=== PATIENT | female | born 1930 | race Caucasian/White ===

== ENCOUNTER → 2016-05-20 | Day surgery (SDC) | payer OTHER ==
[2016-05-08 08:07] VITALS: Ht 170.2 cm; Wt 90.5 kg
[~2016-05-20] VITALS: Ht 170.2 cm; Wt 90.5 kg
[~2016-05-20] MED LIST: 500ML BSS 0.3ML EPI 1:1000PF IRRIG ONE; ACET-1311 PO; ACETAMINOPHEN 325 MG TAB PO PRN; AMVISC PLUS 0.8ML SYRINGE INT OCU ONE; ARTIOIN OP; ASPCH81X PO; ATROPINE SULFATE 0.1 MG/ML 5ML SYR IV PRN; BISA10SU3 PR; BRIMONIDINE TART 0.2% OP SOLN PER DROP CHARGE ONE; BROM0.07 OPR; BSS FLUSH ONE; CHOL2000 PO; CHOL20007 PO; CLC100X PO; CYCL0.052 OPB; CZR25 PO; ENDOCOAT 0.85ML SYRINGE INT OCU ONE; EpHEDrine SULFATE INJ 50 MG/ML AMP IV PRN; EpINEphrine INJ 1MG/ML AMP 1 MG/ML AMP ONE; FERR325T PO; FURO40TA3 PO; LACTATED RINGER'S 1000ML 500 ML IV SCH; LIDOCAINE 4% OP SOLN DROP CHARGE ONE; LIDOCAINE 4% OP SOLN DROP CHARGE OPR SCH; LIDOCAINE HCL 1% MPF 2 ML VIAL ONE; LOPE2TAB84 PO; METO100T7 PO; MIDAZOLAM HCL 1 MG/ML 2ML VIAL ONE; MOML PO; MOXIFLOXACIN OPH SOLN PER DROP CHARGE ONE; MULT-188 PO; MULT-190 PO; OXYM0.0525 NAE; POLY335025 PO; POTA10TA PO; POVIDONE-IODINE OP SOLN 30 ML BTL ONE; PRED1SUS3 OPR; PRLSR20 PO; PROPARACAINE 0.5% OP SOLN PER DROP CHARGE OPR SCH; PYRI100T4 PO; SODIENE PR; TOBRAMYCIN/DEXAMETHASONE OPH OINT PER APPLN CHARGE ONE; VNTHFA/IN INH; ZNTT/150 PO
[2016-05-20] MEDS: PHENYLEPHRINE HCL 2.5% OP SOLN PER DROP CHARGE OPR SCH ×2 (11:15→11:20)
[2016-05-20] MEDS: TROPICAMIDE 1% OP SOLN PER DROP CHARGE OPR SCH ×2 (11:16→11:21)
[2016-05-20] MEDS: CYCLOPENTOLATE HCL 1% OP SOLN PER DROP CHARGE OPR SCH ×2 (11:17→11:22)
--- NOTE | 2016-05-20 11:17 | History & Physical Bridge - [place] ---
H&P Re-Evaluation Bridge Note: I have examined the patient, reviewed the History & Physical and in the interval since the performance of the History & Physical I have noted the following changes of clinical significance: No changes noted
[2016-05-20] MEDS: KETOROLAC 0.5% OP SOLN PER DROP CHARGE OPR SCH ×2 (11:18→11:23)
[2016-05-20] MEDS: MOXIFLOXACIN OPH SOLN PER DROP CHARGE OPR SCH ×2 (11:19→11:29)
--- NOTE | 2016-05-20 13:07 | Discharge Instructions-SurgCtr ---
Discharge Instructions Visit Reason for Visit: Cataract Right Eye Discharge Discharge Diagnosis / Problem: cataract right eye Discharge Goals Goal(s): Improve function Activity Recommendations Activity Limitations: per Instructions/Follow-up section Lifting Limitations: no more than 5 pounds Anesthesia . Post Anesthesia Instructions: If you have had General Anesthesia or IV Sedation: * Do not drive today. * Resume driving when surgeon permits. * Do not make important decisions or sign legal documents today. * Call surgeon for: 1. Temperature elevations greater than 101 degrees F. 2. Uncontrollable pain. 3. Excessive bleeding. 4. Persistent nausea and vomiting. 5. Medication intolerance (nausea, vomiting or rash). * For nausea and vomiting use only clear liquids such as: tea, soda, bouillon until nausea subsides, then gradually increase diet as tolerated. * If you have any concerns or questions, call your surgeon's office. If physician is unavailable and it is an emergency, call 911 or go to the nearest emergency room. . Instructions / Follow-Up Instructions / Follow-Up ACTIVITY RECOMMENDATIONS: * Light activities * You may walk outside, read, watch television. * Mild irritation and blurred vision are common for the first few days, redness around the white part of the eye is common. MEDICATIONS: Resume previous medications unless instructed otherwise by your surgeon. Eye drops (today and tomorrow): Ofloxacin - one drop in operative eye every 2 hours while awake Prednisolone 1% - one drop in operative eye every 2 hours while awake Prolensa - one drop operative eye 1 times daily SPECIAL CARE INSTRUCTIONS: * If any problems or concerns, please call Dr. Faustin's office at . * Keep plastic shield taped over eye to sleep at night. * Keep plastic shield taped over eye except to administer eye drops. * Keep plastic shield on until office visit the following day. FOLLOW UP VISIT: Follow-up with Dr. Faustin in the [place] office as scheduled. If not already scheduled, please call the office at . Diet Recommendations Home Diet: resume previous diet Procedures Procedures Performed: Right Cataract Phacoemulsification With Intraocular Lens Implant Pending Studies Studies pending at discharge: no Medical Emergencies . Who to Call and When: Medical Emergencies: If at any time you feel your situation is an emergency, please call 911 immediately. . Non-Emergent Contact Non-Emergency issues call your: Inside Sales Manager . . "Provider Documentation" section prepared by Steve Faustin.
[2016-05-20 13:08] VITALS: TEMP 36.5
--- NOTE | 2016-05-20 13:08 | [facility] Post Operative Brief Note ---
Immediate Operative Summary Operative Date May 20, 2016. Pre-Operative Diagnosis Cataract right eye Post-Operative Diagnosis same Procedure(s) Performed Right Cataract Phacoemulsification With Intraocular Lens Implant Surgeon Dr. Faustin Adult Education Teacher Surgeon(s) none Estimated Blood Loss 0 Findings cataract right eye Specimens none Complication(s) None Disposition Recovery Room / PACU
[2016-05-20 13:28] VITALS: BP 163/64; PULSE 70; O2SAT 96
--- NOTE | 2016-05-20 13:30 | Anesthesia Progress Nt - [facility] ---
Anesthesia Post Op Note Date & Time May 20, 2016 at 13:29 Vital Signs Pain Intensity: 0 Vital Signs Past 12 Hours Date Time Temp Pulse Resp B/P Pulse Ox O2 Delivery O2 Flow Rate FiO2 05/20/16 13:08 36.5 75 18 137/67 94 Room Air 05/20/16 11:06 36.4 73 18 188/77 96 Room Air Notes Mental Status: alert / awake / arousable, participated in evaluation Pt Amnestic to Procedure: Yes Nausea / Vomiting: adequately controlled Pain: adequately controlled Airway Patency, RR, SpO2: stable & adequate BP & HR: stable & adequate Hydration State: stable & adequate Anesthetic Complications: no major complications apparent
--- NOTE | 2016-05-20 13:53 | OPERATIVE REPORT ---
DATE OF OPERATION: 05/20/2016 PREOPERATIVE DIAGNOSIS: Cataract, right eye. POSTOPERATIVE DIAGNOSIS: Cataract, right eye. PROCEDURE: Phacoemulsification cataract extraction with intraocular lens placement, right eye. SURGEON: Dr. Faustin. COMPLICATIONS: None. ESTIMATED BLOOD LOSS: None. ANESTHESIA: Topical with sedation. OPERATION AND FINDINGS: After informed consent was obtained in the holding area the patient was wheeled back to the Operating Room where cardiac monitoring leads and oxygen by nasal cannula was administered by Anesthesia. Gentle IV sedation was given, and the patient's right eye was prepped and draped in usual sterile fashion. A wire lid speculum was placed into the right eye and the operating microscope was swung into position. Using 0.12 forceps and a Supersharp blade a paracentesis port was made 3 o'clock hours away from the 9 o'clock position of patient's right eye. 1% non-preserved Lidocaine was then injected into the anterior chamber for anesthesia. A 2.2 mm keratotome blade was then used to make a shelved clear corneal incision at the 9 o'clock position of her right eye. Amvisc was injected into the anterior chamber and a cystotome and Utrata forceps were used to perform a curvilinear capsulorrhexis. BSS on a hydrodissection cannula was used to hydrodissect the lens nucleus away from the capsular bag. The phacoemulsification handpiece was then used in a stop and chop fashion to remove the lens nucleus. The irrigation and aspiration handpiece was then used to remove the residual cortical material. Amvisc was injected into the capsular bag and anterior chamber and a Bausch \T\ Lomb MX60 19.0 Diopter intraocular lens was injected into the capsular bag. Irrigation and aspiration handpiece was used to remove the residual viscoelastic material. The wounds were hydrated and noted to be watertight. The wire lid speculum was removed from the eye. Vigamox, Brimonidine, and TobraDex ointment were placed on the eye and it was shielded. It should be noted that EndoCoat was used throughout the case to protect the cornea endothelium. DISPOSITION: The patient tolerated the procedure well and was wheeled to the post anesthesia care unit in stable condition. I attest to the content of the Intraoperative Record and any orders documented therein. Any exceptions are noted below. I attest to the content of the Intraoperative Record and any orders documented therein. Any exceptions are noted below. MTDD
== END | disposition home or self-care (01) ==
LOC: X.SURG 10:52
PROVIDERS: ATTEND Ophthalmology
DX: H26.9 Unspecified cataract (principal); Z88.0 Allergy status to penicillin; Z88.2 Allergy status to sulfonamides; Z95.0 Presence of cardiac pacemaker; Z68.31 Body mass index [BMI] 31.0-31.9, adult; Z96.653 Presence of artificial knee joint, bilateral; I10 Essential (primary) hypertension; I50.9 Heart failure, unspecified

== ENCOUNTER → 2016-07-08 | Day surgery (SDC) | payer OTHER ==
[2016-06-18 11:16] VITALS: Ht 144.8 cm; Wt 89.5 kg
[~2016-07-08] VITALS: Ht 144.8 cm; Wt 89.5 kg
[~2016-07-08] MED LIST changes: -CHOL20007 PO; +FERR1TAB62 PO; -FERR325T PO; +LIDOCAINE 4% OP SOLN DROP CHARGE OPL SCH; -LIDOCAINE 4% OP SOLN DROP CHARGE OPR SCH; +LIDOCAINE HCL 2% 2 ML VIAL (20MG/ML) ONE; -MIDAZOLAM HCL 1 MG/ML 2ML VIAL ONE; -MULT-190 PO; +PROPARACAINE 0.5% OP SOLN PER DROP CHARGE OPL SCH; -PROPARACAINE 0.5% OP SOLN PER DROP CHARGE OPR SCH; +PROPOFOL IV EMULSION 10 MG/ML 20 ML VIAL IV ONE; -ZNTT/150 PO
[2016-07-08] MEDS: PHENYLEPHRINE HCL 2.5% OP SOLN PER DROP CHARGE OPL SCH ×2 (11:53→11:58)
[2016-07-08] MEDS: TROPICAMIDE 1% OP SOLN PER DROP CHARGE OPL SCH ×2 (11:54→11:59)
[2016-07-08] MEDS: CYCLOPENTOLATE HCL 1% OP SOLN PER DROP CHARGE OPL SCH ×2 (11:55→12:00)
[2016-07-08] MEDS: KETOROLAC 0.5% OP SOLN PER DROP CHARGE OPL SCH ×2 (11:56→12:02)
[2016-07-08] MEDS: MOXIFLOXACIN OPH SOLN PER DROP CHARGE OPL SCH ×2 (11:57→12:07)
--- NOTE | 2016-07-08 13:24 | Discharge Instructions-SurgCtr ---
Discharge Instructions Date of Service Jul 08, 2016. Visit Reason for Visit: Cataract Left Eye Discharge Discharge Diagnosis / Problem: cataract left eye Discharge Goals Goal(s): Improve function Activity Recommendations Activity Limitations: per Instructions/Follow-up section Lifting Limitations: no more than 5 pounds Anesthesia . Post Anesthesia Instructions: If you have had General Anesthesia or IV Sedation: * Do not drive today. * Resume driving when surgeon permits. * Do not make important decisions or sign legal documents today. * Call surgeon for: 1. Temperature elevations greater than 101 degrees F. 2. Uncontrollable pain. 3. Excessive bleeding. 4. Persistent nausea and vomiting. 5. Medication intolerance (nausea, vomiting or rash). * For nausea and vomiting use only clear liquids such as: tea, soda, bouillon until nausea subsides, then gradually increase diet as tolerated. * If you have any concerns or questions, call your surgeon's office. If physician is unavailable and it is an emergency, call 911 or go to the nearest emergency room. . Instructions / Follow-Up Instructions / Follow-Up ACTIVITY RECOMMENDATIONS: * Light activities * You may walk outside, read, watch television. * Mild irritation and blurred vision are common for the first few days, redness around the white part of the eye is common. MEDICATIONS: Resume previous medications unless instructed otherwise by your surgeon. Eye drops (today and tomorrow): Ofloxacin - one drop in operative eye every 2 hours while awake Prednisolone 1% - one drop in operative eye every 2 hours while awake Prolensa - one drop operative eye 1 times daily SPECIAL CARE INSTRUCTIONS: * If any problems or concerns, please call Dr. Faustin's office at . * Keep plastic shield taped over eye to sleep at night. * Keep plastic shield taped over eye except to administer eye drops. * Keep plastic shield on until office visit the following day. FOLLOW UP VISIT: Follow-up with Dr. Faustin in the [place] office as scheduled. If not already scheduled, please call the office at . Diet Recommendations Home Diet: resume previous diet Procedures Procedures Performed: Left Cataract Phacoemulsification With Intraocular Lens Implant Pending Studies Studies pending at discharge: no Medical Emergencies . Who to Call and When: Medical Emergencies: If at any time you feel your situation is an emergency, please call 911 immediately. . Non-Emergent Contact Non-Emergency issues call your: Drip Molder . . "Provider Documentation" section prepared by Steve Faustin.
--- NOTE | 2016-07-08 13:24 | [facility] Post Operative Brief Note ---
Immediate Operative Summary Operative Date Jul 08, 2016. Pre-Operative Diagnosis Cataract Left Eye Post-Operative Diagnosis Same Procedure(s) Performed Left Cataract Phacoemulsification With Intraocular Lens Implant Surgeon Dr. Faustin Security Checker Surgeon(s) None Estimated Blood Loss 0 mL Findings cataract left eye Specimens None Complication(s) None Disposition Recovery Room / PACU
[2016-07-08 13:38] VITALS: TEMP 36.7
--- NOTE | 2016-07-08 13:43 | Anesthesia Progress Nt - [facility] ---
Anesthesia Post Op Note Date & Time Jul 08, 2016 at 13:43 Vital Signs Pain Intensity: 0 Vital Signs Past 12 Hours Date Time Temp Pulse Resp B/P Pulse Ox O2 Delivery O2 Flow Rate FiO2 07/08/16 13:38 36.7 72 16 146/65 99 Room Air 07/08/16 11:46 36.2 77 22 164/81 95 Room Air Notes Mental Status: alert / awake / arousable, participated in evaluation Pt Amnestic to Procedure: Yes Nausea / Vomiting: adequately controlled Pain: adequately controlled Airway Patency, RR, SpO2: stable & adequate BP & HR: stable & adequate Hydration State: stable & adequate Anesthetic Complications: no major complications apparent
--- NOTE | 2016-07-08 13:43 | OPERATIVE REPORT ---
DATE OF OPERATION: 07/08/2016 PREOPERATIVE DIAGNOSIS: Cataract, left eye. POSTOPERATIVE DIAGNOSIS: Cataract, left eye. PROCEDURE: Phacoemulsification cataract extraction with intraocular lens placement, left eye. SURGEON: Dr. Faustin. COMPLICATIONS: None. ESTIMATED BLOOD LOSS: None. ANESTHESIA: Topical with sedation. OPERATION AND FINDINGS: After informed consent was obtained in the holding area the patient was wheeled back to the Operating Room where cardiac monitoring leads and oxygen by nasal cannula was administered by Anesthesia. Gentle IV sedation was given, and the patient's left eye was prepped and draped in usual sterile fashion. A wire lid speculum was placed into the left eye and the operating microscope was swung into position. Using 0.12 forceps and a Supersharp blade a paracentesis port was made 3 o'clock hours away from the 3 o'clock position of patient's left eye. 1% non-preserved Lidocaine was then injected into the anterior chamber for anesthesia. A 2.2 mm keratotome blade was then used to make a shelved clear corneal incision at the 3 o'clock position of her left eye. Amvisc was injected into the anterior chamber and a cystotome and Utrata forceps were used to perform a curvilinear capsulorrhexis. BSS on a hydrodissection cannula was used to hydrodissect the lens nucleus away from the capsular bag. The phacoemulsification handpiece was then used in a stop and chop fashion to remove the lens nucleus. The irrigation and aspiration handpiece was then used to remove the residual cortical material. Amvisc was injected into the capsular bag and anterior chamber and a Bausch \T\ Lomb MX60 20.5 Diopter intraocular lens was injected into the capsular bag. Irrigation and aspiration handpiece was used to remove the residual viscoelastic material. The wounds were hydrated and noted to be watertight. The wire lid speculum was removed from the eye. Vigamox, Brimonidine, and TobraDex ointment were placed on the eye and it was shielded. It should be noted that EndoCoat was used throughout the case to protect the cornea endothelium. DISPOSITION: The patient tolerated the procedure well and was wheeled to the post anesthesia care unit in stable condition. I attest to the content of the Intraoperative Record and any orders documented therein. Any exceptions are noted below. I attest to the content of the Intraoperative Record and any orders documented therein. Any exceptions are noted below. MTDD
[2016-07-08 13:54] VITALS: BP 144/50; PULSE 66; O2SAT 97
== END | disposition home or self-care (01) ==
LOC: X.SURG 10:59
PROVIDERS: ATTEND Ophthalmology
DX: H25.12 Age-related nuclear cataract, left eye (principal); I10 Essential (primary) hypertension; H35.30 Unspecified macular degeneration; E78.00 Pure hypercholesterolemia, unspecified

== ENCOUNTER → 2016-08-01 | Outpatient (CLI) | payer OTHER ==
[~2016-08-01] MED LIST changes: -500ML BSS 0.3ML EPI 1:1000PF IRRIG ONE; -ACETAMINOPHEN 325 MG TAB PO PRN; -AMVISC PLUS 0.8ML SYRINGE INT OCU ONE; -ATROPINE SULFATE 0.1 MG/ML 5ML SYR IV PRN; -BRIMONIDINE TART 0.2% OP SOLN PER DROP CHARGE ONE; -BSS FLUSH ONE; -ENDOCOAT 0.85ML SYRINGE INT OCU ONE; -EpHEDrine SULFATE INJ 50 MG/ML AMP IV PRN; -EpINEphrine INJ 1MG/ML AMP 1 MG/ML AMP ONE; -LACTATED RINGER'S 1000ML 500 ML IV SCH; -LIDOCAINE 4% OP SOLN DROP CHARGE ONE; -LIDOCAINE 4% OP SOLN DROP CHARGE OPL SCH; -LIDOCAINE HCL 1% MPF 2 ML VIAL ONE; -LIDOCAINE HCL 2% 2 ML VIAL (20MG/ML) ONE; -MOXIFLOXACIN OPH SOLN PER DROP CHARGE ONE; -POVIDONE-IODINE OP SOLN 30 ML BTL ONE; -PROPARACAINE 0.5% OP SOLN PER DROP CHARGE OPL SCH; -PROPOFOL IV EMULSION 10 MG/ML 20 ML VIAL IV ONE; -TOBRAMYCIN/DEXAMETHASONE OPH OINT PER APPLN CHARGE ONE
[2016-08-01 08:25] LABS: BASO % 0.5 %; BASO ABS # 0.03 K/uL (0-0.2); COMPLETE YES; EOS % 8.5 %; HEMATOCRIT 35.6 % (37-47); IG% 0.2 %; LYMPH % 29.3 %; MEAN CELL VOLUME 91.5 fL (80-100); MEAN CORPUSCULAR HEMOGLOBIN 29.6 pg (25-34); MEAN CORPUSCULAR HGB CONC 32.3 g/dl (32-36); MEAN PLATELET VOLUME 10.3 fL (7.4-10.4); MONO % 11.2 %; NEUT % 50.3 %; PLATELET COUNT 279 K/uL (130-400); RED BLOOD COUNT 3.89 M/uL (4.2-5.4); WHITE BLOOD COUNT 6.15 K/uL (4.8-10.8)
[2016-08-01 08:34] LABS: ALT/SGPT 34 U/L (12-78); BLOOD UREA NITROGEN 43 mg/dl (7-18); BUN/CREATININE RATIO 26.9 (10-20); CARBON DIOXIDE 29 mmol/L (21-32); CHLORIDE 104 mmol/L (98-107); GLUCOSE 81 mg/dl (70-99); POTASSIUM 4.1 mmol/L (3.5-5.1); SODIUM 141 mmol/L (136-145)
[2016-08-01 08:44] LABS: ALB/GLOB RATIO 1.1 (0.9-2); ALKALINE PHOSPHATASE 88 U/L (45-117); AST/SGOT 32 U/L (15-37)
[2016-08-01 08:50] LABS: CALCIUM 9.6 mg/dl (8.5-10.1)
== END ==
LOC: C.LABCC 07:56
PROVIDERS: ATTEND Internal Medicine
DX: I10 Essential (primary) hypertension (principal)

== ENCOUNTER → 2016-09-06 | Outpatient (CLI) | payer OTHER ==
[2016-09-06 08:57] LABS: BLOOD UREA NITROGEN 51 mg/dl (7-18); BUN/CREATININE RATIO 39.4 (10-20); CARBON DIOXIDE 28 mmol/L (21-32); CHLORIDE 106 mmol/L (98-107); GLUCOSE 79 mg/dl (70-99); POTASSIUM 3.9 mmol/L (3.5-5.1); SODIUM 143 mmol/L (136-145)
[2016-09-06 09:04] LABS: CALCIUM 9.3 mg/dl (8.5-10.1)
== END ==
LOC: C.LABCC 08:06
PROVIDERS: ATTEND Internal Medicine
DX: R79.9 Abnormal finding of blood chemistry, unspecified (principal)

== ENCOUNTER → 2016-09-23 | Outpatient (CLI) | payer OTHER ==
[2016-09-23 14:05] LABS: BLOOD UREA NITROGEN 42 mg/dl (7-18); BUN/CREATININE RATIO 29.9 (10-20); CALCIUM 8.8 mg/dl (8.5-10.1); CARBON DIOXIDE 32 mmol/L (21-32); CHLORIDE 105 mmol/L (98-107); GLUCOSE 110 mg/dl (70-99); POTASSIUM 3.4 mmol/L (3.5-5.1); SODIUM 143 mmol/L (136-145)
== END ==
LOC: C.LABCC 12:17
PROVIDERS: ATTEND Internal Medicine
DX: N18.9 Chronic kidney disease, unspecified (principal)

== ENCOUNTER → 2016-09-26 | Outpatient (CLI) | payer OTHER ==
[2016-09-26 08:54] LABS: BLOOD UREA NITROGEN 39 mg/dl (7-18); BUN/CREATININE RATIO 24.1 (10-20); CARBON DIOXIDE 29 mmol/L (21-32); CHLORIDE 101 mmol/L (98-107); GLUCOSE 99 mg/dl (70-99); POTASSIUM 3.8 mmol/L (3.5-5.1); SODIUM 140 mmol/L (136-145)
[2016-09-26 09:07] LABS: CALCIUM 9.1 mg/dl (8.5-10.1)
== END ==
LOC: C.LABCC 07:39
PROVIDERS: ATTEND Internal Medicine
DX: R79.89 Other specified abnormal findings of blood chemistry (principal)

== ENCOUNTER → 2017-02-03 | Outpatient (CLI) | payer OTHER ==
[2017-02-03 08:36] LABS: BLOOD UREA NITROGEN 39 mg/dl (7-18); BUN/CREATININE RATIO 23.5 (10-20); CALCIUM 9.6 mg/dl (8.5-10.1); CARBON DIOXIDE 26 mmol/L (21-32); CHLORIDE 106 mmol/L (98-107); CREATININE 1.65 mg/dl (0.60-1.20); GLUCOSE 104 mg/dl (70-99); POTASSIUM 3.9 mmol/L (3.5-5.1); SODIUM 141 mmol/L (136-145)
== END | disposition home or self-care (01) ==
LOC: C.LABCC 08:02
PROVIDERS: ATTEND Internal Medicine
DX: R60.9 Edema, unspecified (principal)

== ENCOUNTER → 2017-07-22 | Outpatient (CLI) | payer OTHER ==
[2017-07-22 09:34] LABS: BLOOD UREA NITROGEN 27 mg/dl (7-18); CALCIUM 9.6 mg/dl (8.5-10.1); CARBON DIOXIDE 28 mmol/L (21-32); CREATININE 1.26 mg/dl (0.60-1.20); GLUCOSE 95 mg/dl (70-99); POTASSIUM 3.5 mmol/L (3.5-5.1); SODIUM 139 mmol/L (136-145)
[2017-07-22 09:35] LABS: PTT PATIENT 30.6 SECONDS (21.0-31.0)
== END | disposition home or self-care (01) ==
LOC: C.LABCC 08:48
PROVIDERS: ATTEND Internal Medicine
DX: Z01.812 Encounter for preprocedural laboratory examination (principal)

== ENCOUNTER → 2017-07-30 | Outpatient (CLI) | payer OTHER | LOC: C.LABCC 08:23 | PROVIDERS: ATTEND Internal Medicine | DX: R30.0 Dysuria (principal) ==

== ENCOUNTER 2017-08-05 11:13 | Day surgery (SDC) | payer OTHER ==
[~2017-08-05] VITALS: Ht 144.8 cm; Wt 86.4 kg
[~2017-08-05 11:13] MED LIST changes: +CLINDAMYCIN 600 MG/54 ML D5W IV SCH; +LACTATED RINGER'S 1000ML IV SCH
[2017-08-05 11:34] VITALS: Ht 144.8 cm; Wt 86.4 kg
[2017-08-05] MEDS ORDERED: LIDOCAINE HCL 1% 20 ML VIAL ONE ×2 (12:26→12:32)
[2017-08-05] MEDS ORDERED: BUPIVACAINE 0.5 % 5 MG/1 ML MPF 30ML VIAL ONE (12:26)
[2017-08-05] MEDS ORDERED: BACITRACIN 50000 UNIT VIAL ONE ×2 (12:26→12:32)
[2017-08-05] MEDS ORDERED: BACITRACIN OINT 0.9 GM PKT ONE (12:32)
[2017-08-05] MEDS ORDERED: MIDAZOLAM HCL 5 MG/ML 1 ML VIAL ONE (12:36)
[2017-08-05] MEDS ORDERED: FENTANYL CITRATE INJ 50 MCG/1 ML 2 ML VIAL ONE (12:36)
--- NOTE | 2017-08-05 13:09 | History & Physical Bridge Note ---
H&P Re-Evaluation Bridge Note: I have examined the patient, reviewed the History & Physical and in the interval since the performance of the History & Physical I have noted the following changes of clinical significance: No changes noted. I reviewed the indications, procedure, risks and alternatives of device replacement and possible lead revision with her and she understands and agrees to proceed. Consent obtained. Conscious sedation was also reviewed, consent obtained.
[2017-08-05] MEDS ORDERED: DOXY100C76 PO (13:10)
[2017-08-05] MEDS ORDERED: SULF800T23 PO (13:10)
--- NOTE | 2017-08-05 13:14 | Pre Sedation Assessment ---
Pre Sedation Assessment General Date of Sedation: August 05, 2017. Review Cardiovascular: regular rate, rhythm, no edema, no gallop, no JVD Lungs: chest non-tender, lungs clear, normal breath sounds, no respiratory distress, no accessory muscle use Pre-Sedation Airway Assessment Smoking Status: Never Smoker Thyro-mental Distance: < or =3 Finger Breadths Oral Cavity: Dentures Mallampati Classification: Class III ASA Classification: Class II NPO Status Date of Last Intake of Fluids: Aug 04, 2017 Date of Last Intake of Solids: Aug 04, 2017 Procedure Planning Contraindications for Sedation: None Current Medications Reviewed: Yes Notes The planned sedation has been discussed with the patient. Informed Consent was obtained. I have identified the patient, determined the appropriateness of sedation and have assessed the patient immediately prior to the procedure. All medicine(s) and interventions are by my order.
[2017-08-05 14:20] VITALS: BP 136/70; PULSE 83; TEMP 36.4; O2SAT 95
--- NOTE | 2017-08-05 14:22 | [facility] Operative Report ---
Operative Report Operative Date August 05, 2017. Pre-Operative Diagnosis Pacemaker LOULOU Post-Operative Diagnosis Same Procedure(s) Performed Dual-chamber pacemaker replacement Surgeon Dr. Zendejas Copy Cutter Surgeon(s) None Estimated Blood Loss 30 cc Findings Good chronic lead measurements Specimens Old pacemaker, return to [employer] Anesthesia Local with sedation Complication(s) None Disposition [facility] Description of Procedure After obtaining informed consent for the procedure, the patient was brought to the laboratory being NPO after midnight. After identification in the laboratory the patient was prepped and draped in the standard sterile manner for a left- sided device replacement. The left prepectoral region was anesthetized with 1% lidocaine local anesthetic and once adequate anesthesia was obtained a 5 cm incision was made through the old implant scar and carried down to the pacemaker generator. The generator was dissected free of tissue and explanted. A bacitracin-soaked sponge(50,000 units in 50 cc normal saline solution) was placed in the pocket. The pacemaker was removed from the leads and connected to an external pacing system. Pacing and sensing characteristics were evaluated in both the atrial and ventricular leads as noted on the implant data sheet. A new pacemaker was attached to the leads and found to be functioning normally. The bacitracin- soaked sponge was removed from the pocket, the pacemaker was placed in the pocket with the leads coiled beneath it. The incision was closed with a running double subcutaneous closure of 3-0 Vicryl absorbable suture followed by a running subcuticular skin closure of 4-0 Vicryl absorbable suture. The patient tolerated the procedure well, there were no complications and the patient was transferred to the same-day surgery unit for observation and subsequent discharge. I attest to the content of the Intraoperative Record and any orders documented therein. Any exceptions are noted below.
--- NOTE | 2017-08-05 14:23 | Post Sedation Assessment ---
Post Sedation Assessment General Date of Sedation August 05, 2017. Post Procedure Recovery Score Activity: (2) Moves 4 extremities * Respiration: (2) Deep breath/cough Circulation: (2) +/-20% PreAnes Value Consciousness: (1) Arouseable (by name) Oxygen Saturation: (1) O2 needed for >90% Post Anesthesia Score: 8 Discharge Sedation Level of Care: Fast Track Phase II Post Sedation Plan On clinical assessment, the patient appears to have tolerated the sedation without complications. Patient is recovering as anticipated. Patient will continue to be monitored by nursing and may be discharged when sedation discharge criteria are met per below protocol. Upon Completions of procedure and additional 15 minutes continue every 5 minute vital signs and the P.A.R. score; then discharge to a Phase I or Fast Track to Phase II per the following guidelines: * Discharge Patient to appropriate Phase II area if PAR is 8 or greater or return to pre- procedure baseline. The post - procedure orders will be as directed. * If PAR score is less than 8 or not return to pre-procedure baseline then patient will follow Phase I monitoring till PAR is reached for Phase II. The Phase I may be done in procedure room or may call to secure a Phase I area. * If naloxone or flumazenil are used for reversal, hold in Phase I for an additional 60 -120 minutes before discharge to Phase II. Please call the Sedation Physician to re-evaluate and complete post-note for discharge to Phase II area. Do NOT discharge from procedure sedation or Phase 1 until post- sedation evaluation note is complete by procedure /sedation MD Sedation Discharge Instructions to be given to the patient at discharge to home.
[2017-08-05 14:36] VITALS: BP 136/70; PULSE 83; TEMP 36.4
[2017-08-05 14:50] VITALS: BP 137/78; PULSE 77; O2SAT 97
[2017-08-05 15:20] VITALS: BP 108/53; PULSE 74; O2SAT 97
--- NOTE | 2017-08-05 15:43 | Discharge Instructions ---
Discharge Instructions Date of Service August 05, 2017. Admission Reason for Admission: Elective Replacement Indicator Discharge Discharge Diagnosis / Problem: Pacemaker at replacement time Discharge Goals Goal(s): Improve disease control Activity Recommendations Activity Limitations: resume your previous activity . Instructions / Follow-Up Instructions / Follow-Up ACTIVITY RECOMMENDATIONS: * Do not raise affected arm over head for 2 weeks. SPECIAL CARE INSTRUCTIONS: * If bleeding occurs, apply direct pressure to area for 5 minutes. * Call your doctor if you have severe pain, fever, drainage or bleeding at site. * Keep dressing on and dry, change to another dry dressing in 24 hours. Remove the new dressing after 48 hours. * Keep any scheduled doctor's appointment. * Implant Card - hand held device with website information given. SKIN IRRITATION: * You may experience some redness and/or swelling in the area where radiation was administered. If any skin irritation occurs, please contact your family physician. FOLLOW UP VISIT: Keep any scheduled doctor appointments. Current Hospital Diet Patient's current hospital diet: Discharge Diet Recommended Diet: AHA Diet (Heart Healthy) Pending Studies Studies pending at discharge: no Medical Emergencies . Who to Call and When: Medical Emergencies: If at any time you feel your situation is an emergency, please call 911 immediately. . Non-Emergent Contact Non-Emergency issues call your: Primary Care Provider . . "Provider Documentation" section prepared by Román Zendejas. .
[2017-08-05] MEDS ORDERED: KETOROLAC TROMETHAMINE 10 MG TAB PO PRN (15:45)
[2017-08-05] MEDS ORDERED: ACETAMINOPHEN 325 MG TAB PO PRN (15:45)
== END 2017-08-05 16:30 | disposition home or self-care (01) ==
LOC: C.ACU 11:13
PROVIDERS: ATTEND Internal Medicine Cardiovascular Disease
DX: I49.5 Sick sinus syndrome (principal); I48.0 Paroxysmal atrial fibrillation; I35.0 Nonrheumatic aortic (valve) stenosis; Z95.0 Presence of cardiac pacemaker; K21.9 Gastro-esophageal reflux disease without esophagitis; K21.0 Gastro-esophageal reflux disease with esophagitis; E78.5 Hyperlipidemia, unspecified; I10 Essential (primary) hypertension; M81.0 Age-related osteoporosis without current pathological fracture; Z82.49 Family history of ischemic heart disease and other diseases of the circulatory system; Z83.6 Family history of other diseases of the respiratory system; Z79.82 Long term (current) use of aspirin; Z88.0 Allergy status to penicillin; Z91.048 Other nonmedicinal substance allergy status

== ENCOUNTER 2017-10-19 07:20 | Inpatient (IN) | payer OTHER ==
[2017-10-19] VITALS (7 sets, daily range): BP systolic 90–116; BP diastolic 56–81; PULSE 111–133; TEMP 36.3–36.8; O2SAT 96–99; Ht 149.9 cm; Wt 93.8 kg
[~2017-10-19] VITALS: Ht 149.9 cm; Wt 93.8 kg
[~2017-10-19 07:20] MED LIST changes: -CLINDAMYCIN 600 MG/54 ML D5W IV SCH; -CZR25 PO; +DOXY100C76 PO; -LACTATED RINGER'S 1000ML IV SCH; +SULF800T23 PO
[2017-10-19] MEDS ORDERED: CEFTRIAXONE SOD INJ 1 GM ADDVIAL IV STA (07:30)
[2017-10-19] MEDS ORDERED: VANCOMYCIN 1GM ED/ASU OMNICELL IV STA (07:30)
[2017-10-19] MEDS ORDERED: LEVAQUIN 750MG / 150ML D5W IV STA (07:30)
[2017-10-19 07:44] LABS: HEMATOCRIT 30.3 % (37-47); IG# 0.06 K/uL (0.00-0.02); LYMPH % 4.7 %; LYMPH ABS # 0.72 K/uL (1.2-3.4); MEAN CELL VOLUME 99.7 fL (80-100); MEAN CORPUSCULAR HEMOGLOBIN 32.9 pg (25-34); MEAN PLATELET VOLUME 9.2 fL (7.4-10.4); MONO % 8.1 %; MONO ABS # 1.24 K/uL (0.11-0.59); NEUT % 86.8 %; NEUT ABS # 13.37 K/uL (1.4-6.5); PLATELET COUNT 117 K/uL (130-400); RED CELL DISTRIBUTION WIDTH CV 17.1 % (11.5-14.5); RED CELL DISTRIBUTION WIDTH SD 61.5 fL (36.4-46.3); WHITE BLOOD COUNT 15.39 K/uL (4.8-10.8)
--- NOTE | 2017-10-19 07:51 | EMERGENCY ROOM VISIT NOTE ---
History Report prepared by Annette: Uriel Mcintyre Under the Supervision of: Dr. Mac Ramirez M.D. First contact with patient: 07:23 Stated Complaint: ILLNESS History of Present Illness The patient is a 86 year old female who presents to the Emergency Room with complaints of worsening pain in the region of her cellulitis on her right leg and a fever. The nurse states that last night, the patient was measured to have a fever of over 101. She states that the patient had nausea this morning, but the patient reports no current nausea. The patient notes localized pain in the region of her cellulitis. She states that her pain from cellulitis has recently been worsening. The patient denies abdominal pain. Source of History: patient, nursing staff Onset: last night fever Position: leg (right, cellulitis) Symptom Intensity: 101 fever Timing: worsening Associated Symptoms: No abdominal pain Review of Systems See HPI for pertinent positives & negatives. A total of 10 systems reviewed and were otherwise negative. Past Medical & Surgical Medical Problems: (1) Aortic stenosis (2) Atrial dysrhythmia (3) Atrial fibrillation with RVR (4) Cellulitis (5) Hypertension (6) LE edema (7) Lower extremity pain, left (8) Osteoporosis (9) Polyarthritis (10) Presence of IVC filter (11) Status post bilateral knee replacements Surgical Problems: (1) S/P carpal tunnel release (2) S/P cholecystectomy (3) S/P hemorrhoidectomy (4) S/P tonsillectomy Family History No pertinent family history Social History Smoking Status: Never Smoker Drug Use: none Marital Status: single Housing Status: group home Occupation Status: retired Current/Historical Medications Scheduled Albuterol Sulf (Proventil 0.083% 2.5MG/3ML), 2.5 MG INH QID Aspirin (Aspirin Chewable), 81 MG PO QAM Cholecalciferol (Vitamin D), 1.5 TAB PO DAILY Cyclosporine (Ophth) (Restasis), 1 DROP OPB BID Docusate Sodium (Colace), 100 MG PO BID Doxycycline Hyclate (Doxycycline Hyclate), 50 MG PO BID Ferrous Sulfate (Ferrous Sulfate), 325 MG PO BID Furosemide (Lasix), 60 MG PO BID Lactobacillus (Probiotic), 1 CAP PO BID Metoprolol Succinate (Toprol Xl), 100 MG PO DAILY Multiple Vitamins W/ Minerals (Prosight), 1 TAB PO BID Niacinamide (Niacinamide), 500 MG PO TID Omeprazole (Prilosec), 20 MG PO QAM Potassium Chloride (K-Tabs), 20 MEQ PO QAM Prednisone (Prednisone), 5 MG PO QAM Pyridoxine (Vitamin B6), 100 MG PO QAM Rivaroxaban (Xarelto), 15 MG PO QAM Scheduled PRN Acetaminophen (Tylenol), 650 MG PO Q4H PRN for PRN Bisacodyl (Dulcolax), 1 SUPP UT Q3D PRN for Constipation Guaifenesin (Ra Tussin), 10 ML PO Q6 PRN for Cough Magnesium Hydroxide (Milk Of Magnesia), 30 ML PO DAILY PRN for Constipation Sodium Phosphate/Biphosphate (Fleet Enema), 1 EA UT Q4DAYS PRN for Constipation Triamcinolone Acet (Aristocort 0.1%), 1 APPLN TOP Q12 PRN for BULLOUS PEMPHLAGOID LESIONS Allergies Coded Allergies: Penicillins (Verified Allergy, Mild, HIVES, 10/19/17) Adhesives (Verified Allergy, Unknown, LOCAL SKIN IRRITATION, 10/19/17) Terazosin (Verified Allergy, Unknown, PT UNSURE, 10/19/17) Physical Exam Vital Signs Date Time Temp Pulse Resp B/P (MAP) Pulse Ox O2 Delivery O2 Flow Rate FiO2 10/19/17 08:53 96 Room Air 10/19/17 08:30 114 22 115/64 96 Room Air 10/19/17 07:50 124 21 120/64 96 Room Air 10/19/17 07:42 96 Room Air 10/19/17 07:31 129 10/19/17 07:30 37.4 105 16 120/64 96 Room Air Physical Exam GENERAL: Awake, alert, well-appearing, in no acute distress HENT: Normocephalic, atraumatic. Oropharynx unremarkable. EYES: Normal conjunctiva. Sclera non-icteric. NECK: Supple. No nuchal rigidity. FROM. No JVD. RESPIRATORY: Clear to auscultation. CARDIAC: Grade 2/6 Systolic Murmur. Extremities warm and well perfused. Pulses equal. ABDOMEN: Soft, non-distended. No tenderness to palpation. No rebound or guarding. No masses. RECTAL: Deferred. MUSCULOSKELETAL: Chest examination reveals no tenderness. The back is symmetrical on inspection without obvious abnormality. There is no CVA tenderness to palpation. No joint edema. LOWER EXTREMITIES: Cellulitis weeping in the right lower extremity that extends to the knee. NEURO: Normal sensorium. No sensory or motor deficits noted. SKIN: No rash or jaundice noted. Covered in bruises on all extremities. Medical Decision & Procedures ER Provider Diagnostic Interpretation: Radiology results as stated below per my review and radiologist interpretation: CHEST ONE VIEW PORTABLE CLINICAL HISTORY: Sepsis dyspnea COMPARISON STUDY: 10/25/2013 FINDINGS: Moderate stable cardia megaly. Permanent bipolar cardiac pacemaker. Lungs are clear. Diaphragms are smooth. IMPRESSION: Moderate cardiomegaly. Otherwise negative chest. The above report was generated using voice recognition software. It may contain grammatical, syntax or spelling errors. Electronically signed by: Mandeep Alarcon M.D. 10/19/2017 7:54 AM Laboratory Results 10/19/17 07:00 Red Blood Count 3.04, Mean Corpuscular Volume 99.7, Mean Corpuscular Hemoglobin 32.9, Mean Corpuscular Hemoglobin Concent 33.0, Mean Platelet Volume 9.2, Neutrophils (%) (Auto) 86.8, Lymphocytes (%) (Auto) 4.7, Monocytes (%) (Auto) 8.1, Eosinophils (%) (Auto) 0.0, Basophils (%) (Auto) 0.0, Neutrophils # (Auto) 13.37, Lymphocytes # (Auto) 0.72, Monocytes # (Auto) 1.24, Eosinophils # (Auto) 0.00, Basophils # (Auto) 0.00 10/19/17 07:00 Test 10/19/17 07:00 10/19/17 07:32 10/19/17 07:40 10/19/17 07:51 White Blood Count 15.39 K/uL (4.8-10.8) Red Blood Count 3.04 M/uL (4.2-5.4) Hemoglobin 10.0 g/dL (12.0-16.0) Hematocrit 30.3 % (37-47) Mean Corpuscular Volume 99.7 fL (80-100) Mean Corpuscular Hemoglobin 32.9 pg (25-34) Mean Corpuscular Hemoglobin Concent 33.0 g/dl (32-36) Platelet Count 117 K/uL (130-400) Mean Platelet Volume 9.2 fL (7.4-10.4) Neutrophils (%) (Auto) 86.8 % Lymphocytes (%) (Auto) 4.7 % Monocytes (%) (Auto) 8.1 % Eosinophils (%) (Auto) 0.0 % Basophils (%) (Auto) 0.0 % Neutrophils # (Auto) 13.37 K/uL (1.4-6.5) Lymphocytes # (Auto) 0.72 K/uL (1.2-3.4) Monocytes # (Auto) 1.24 K/uL (0.11-0.59) Eosinophils # (Auto) 0.00 K/uL (0-0.5) Basophils # (Auto) 0.00 K/uL (0-0.2) RDW Standard Deviation 61.5 fL (36.4-46.3) RDW Coefficient of Variation 17.1 % (11.5-14.5) Immature Granulocyte % (Auto) 0.4 % Immature Granulocyte # (Auto) 0.06 K/uL (0.00-0.02) Anion Gap 10.0 mmol/L (3-11) Est Creatinine Clear Calc Drug Dose 26.2 ml/min Estimated GFR () 36.6 Estimated GFR (Non- 31.5 BUN/Creatinine Ratio 24.8 (10-20) Calcium Level 9.1 mg/dl (8.5-10.1) Total Bilirubin 1.4 mg/dl (0.2-1) Aspartate Amino Transf (AST/SGOT) 23 U/L (15-37) Alanine Aminotransferase (ALT/SGPT) 17 U/L (12-78) Alkaline Phosphatase 53 U/L (45-117) Total Creatine Kinase 75 U/L (26-192) Creatine Kinase MB 1.1 ng/ml (0.5-3.6) Total Protein 6.3 gm/dl (6.4-8.2) Albumin 3.2 gm/dl (3.4-5.0) Globulin 3.1 gm/dl (2.5-4.0) Albumin/Globulin Ratio 1.0 (0.9-2) Creatine Kinase MB Ratio (0-3.0) Prothrombin Time 12.8 SECONDS (9.0-12.0) Prothromb Time International Ratio 1.2 (0.9-1.1) Activated Partial Thromboplast Time 33.8 SECONDS (21.0-31.0) Partial Thromboplastin Ratio 1.3 Bedside Lactic Acid Venous 1.68 mmol/L (0.90-1.70) Labs reviewed by ED physician. Medications Administered Medications (Trade) Dose Ordered Sig/Carrol Route Start Time Stop Time Status Last Admin Dose Admin Vancomycin HCl (Vancomycin 1gm Ed/Asu Omnicell) 1 gm ONE STAT IV 10/19/17 07:30 10/19/17 07:33 DC 10/19/17 10:27 1 GM Levofloxacin (Levaquin / D5W) 750 mg ONE STAT IV 10/19/17 07:30 10/19/17 07:33 DC 10/19/17 08:54 750 MG Ceftriaxone Sodium (Rocephin Inj) 1 gm NOW STAT IV 10/19/17 07:30 10/19/17 07:33 DC 10/19/17 08:15 1 GM Sodium Chloride 500 ml @ 999 mls/hr Q31M STAT IV 10/19/17 08:08 10/19/17 08:38 DC 10/19/17 08:13 999 MLS/HR Potassium Chloride (Klor-Con M10) 40 meq NOW STAT PO 10/19/17 08:09 10/19/17 08:11 DC 10/19/17 08:54 40 MEQ Sodium Chloride 500 ml @ 999 mls/hr Q31M STAT IV 10/19/17 08:18 10/19/17 08:48 DC 10/19/17 08:54 999 MLS/HR ECG Per My Interpretation Indication: other (cellulitis) Rate (beats per minute): 125 Rhythm: atrial fibrillation, other (RVR) Findings: RBBB, ST depression (throughout all leads) Comparison ECG Date: no prior available ED Course 0728: Past medical records reviewed. The patient was evaluated in room A11B. A complete history and physical examination was performed. 0818: I spoke with Dr. Rincon - [facility] Hospitalist. He will reevaluate the patient for admission. Medical Decision Differential diagnosis: Etiologies such as cellulitis, abscess, MRSA infection, DVT, necrotizing fasciitis, dermatitis, drug eruption, as well as others were entertained. This is an 86-year-old female who presents the emergency department complaining of bilateral leg swelling. Patient does have an elevation in her white blood cell count. She was started on Rocephin vancomycin as well as Levaquin here in the emergency department. She has several bruises on her body from her Eliquis. She denies any abdominal pain. Do suspect that the patient is suffering from cellulitis and did discuss the case with the hospitalist service who agreed to admit the patient. Patient was in agreement with the treatment plan. Medication Reconcilliation Current Medication List: was personally reviewed by me Blood Pressure Screening Patient's blood pressure: Normal blood pressure Blood pressure disposition: Did not require urgent referral Consults Time Called: 08 Consulting Physician: Dr. Rincon [facility] Hospitalist Returned Call: [address] Rincon [facility] Hospitalist. He will reevaluate the patient for admission. Impression Primary Impression: Cellulitis Additional Impression: Fever Scribe Attestation The scribe's documentation has been prepared under my direction and personally reviewed by me in its entirety. I confirm that the note above accurately reflects all work, treatment, procedures, and medical decision making performed by me. Departure Information Dispostion Being Evaluated By Hospitalist Referrals LangtryCarol (PCP) Problem Qualifiers Primary Impression: Cellulitis Site of cellulitis: unspecified site Qualified Codes: L03.90 - Cellulitis, unspecified Additional Impression: Fever Fever type: unspecified Qualified Codes: R50.9 - Fever, unspecified
--- NOTE | 2017-10-19 07:56 | DIAGNOSTIC IMAGING REPORT ---
CHEST ONE VIEW PORTABLE CLINICAL HISTORY: Sepsis dyspnea COMPARISON STUDY: 10/25/2013 FINDINGS: Moderate stable cardia megaly. Permanent bipolar cardiac pacemaker. Lungs are clear. Diaphragms are smooth. IMPRESSION: Moderate cardiomegaly. Otherwise negative chest. The above report was generated using voice recognition software. It may contain grammatical, syntax or spelling errors. Electronically signed by: Mandeep Alarcon M.D. 10/19/2017 7:54 AM Dictated Date/Time: 10/19/2017 7:53 AM
[2017-10-19 08:00] LABS: ALBUMIN 3.2 gm/dl (3.4-5.0); CALCIUM 9.1 mg/dl (8.5-10.1); CREATININE 1.47 mg/dl (0.60-1.20); POTASSIUM 3.4 mmol/L (3.5-5.1)
[2017-10-19 08:03] LABS: CKMB 1.1 ng/ml (0.5-3.6); TOTAL PROTEIN 6.3 gm/dl (6.4-8.2)
[2017-10-19] MEDS ORDERED: SODIUM CHLORIDE 0.9% 500ML 500 ML IV STA ×2 (08:08→08:18)
[2017-10-19 08:09] LABS: INR 1.2 (0.9-1.1); PTT PATIENT 33.8 SECONDS (21.0-31.0)
[2017-10-19] MEDS ORDERED: POTASSIUM CHLORIDE 10 MEQ TABCR PO STA (08:09)
[2017-10-19] MEDS ORDERED: TRMCR130WC TOP (08:36)
[2017-10-19] MEDS ORDERED: LACT1CAP6 PO (08:36)
[2017-10-19] MEDS ORDERED: MULT-19 PO (08:36)
[2017-10-19] MEDS ORDERED: FURO-85 PO (08:36)
[2017-10-19] MEDS ORDERED: NIAC100T18 PO (08:36)
[2017-10-19] MEDS ORDERED: CYCL0.052 OPB (08:36)
[2017-10-19] MEDS ORDERED: CHOL20009 PO (08:36)
[2017-10-19] MEDS ORDERED: PRED-301 PO (08:36)
[2017-10-19] MEDS ORDERED: DOCU-94 PO (08:36)
[2017-10-19] MEDS ORDERED: XRL15 PO (08:36)
[2017-10-19] MEDS ORDERED: DOXY50TA9 PO (08:36)
[2017-10-19] MEDS ORDERED: [UNRECOGNIZED DRUG - CODE] PO (08:36)
[2017-10-19] MEDS ORDERED: ALBINS/ INH (08:37)
[2017-10-19] MEDS ORDERED: ONDANSETRON INJ 2 MG/ML 2 ML VIAL IV PRN (09:00)
[2017-10-19] MEDS ORDERED: POLYETHYLENE (MIRALAX) 17 GM PACK PO PRN (09:00)
[2017-10-19] MEDS ORDERED: METOPROLOL SUCC 50MG EXT REL TAB ONE (09:35)
[2017-10-19] MEDS ORDERED: VANCOMYCIN 1GM ED/ASU OMNICELL ONE (10:18)
[2017-10-19] MEDS: METOPROLOL SUCC 50MG EXT REL TAB PO SCH (11:30)
[2017-10-19] MEDS: NSS + 20MEQ KCL 1000ML 1,000 ML IV SCH (12:37)
[2017-10-19] MEDS: DOCUSATE SODIUM 100 MG CAP PO SCH ×2 (12:38→19:45)
[2017-10-19] MEDS: ASPIRIN 81 MG ECTAB PO SCH (12:38)
[2017-10-19] MEDS: PYRIDOXINE HCL 50 MG TAB PO SCH (12:39)
[2017-10-19] MEDS: RIVAROXABAN TAB 15 MG TAB PO SCH (12:40)
[2017-10-19] MEDS ORDERED: VANCOMYCIN IV 1,000 MG in SODIUM CHLORIDE 0.9% 250ML 250 ML IV SCH (13:30)
[2017-10-19] MEDS ORDERED: VANCOMYCIN CONSULT ACTIVE PRN (13:30)
[2017-10-19] MEDS ORDERED: VANCOMYCIN IV 500 MG in SODIUM CHLORIDE 0.9% 250ML 250 ML IV STA (14:03)
--- NOTE | 2017-10-19 14:10 | Pharmacy Progress Note ---
Pharmacy Abx Dose Short Note Date of Service Oct 19, 2017. Assessment & Plan A/P Coverage being broadened to include MRSA. She received 1g of Vanco in the ED. Will supplement this dose with 500mg. I suspect that 1500mg (16mg/kg) total of vancomycin will achieve a peak of ~29mcg/mL. Given that her t1/2 is 27hrs and advanced age, I do not suspect she will need any further doses today. Further, her habitus is strongly indicative of vanco accumulation. Random lvl ordered for 10/20/17 w/ AM labs. Goal random lvl until c/s's result will be 15-20mcg/mL. Pharmacy will continue to follow and will adjust dose/frequency as necessary. Thank you.
--- NOTE | 2017-10-19 14:10 | History and Physical ---
History & Physical Date & Time of Service: Oct 19, 2017 at 13:20 Chief Complaint: Atrial Fibrillation W/Rvr, Cellulitis Primary Care Physician: Carol Garcia History of Present Illness Source: patient, family, hospital records 86 yo female who presents to the ED from [facility] due to right leg pain, swelling, redness. She has also been experiencing fever/chills, sweats, lethargy, poor appetite and weakness. Poor intake of fluids past two days. She has been compliant with her medications. She has some chronic lower extremity swelling, edema and has had cellulitis before but she does not believe this bad. The pain is rated 7 out of 10 at its worst. She describes an area of skin that has opened and is draining clear fluid. Changes in the skin started a few days ago and then systemic symptoms occurred yesterday. No injury or break in skin over right leg that she can recall. She denies chest pain, pressure, dyspnea. No nausea/vomiting, she had a BM this morning. No issues urinating. In the ED she was found to have WBC of 15k with 86% neutrophils, Hb 10.0, K low at 3.4 and Cr up from baseline at 1.47. Troponin was minimally elevated. CXR negative. EKG showed atrial fibrillation. She received NSS 500cc bolus x 2, Rocephin, Vancomycin and Levaquin. She took Potassium chloride 40mEq PO x 1. She was feeling better when I saw her Past Medical/Surgical History Medical Problems: (1) Anterior epistaxis (2) Aortic stenosis (3) Atrial dysrhythmia (4) Atrial fibrillation with RVR (5) cellulitis (6) Cellulitis (7) CVA (cerebral vascular accident) (8) Deep vein thrombosis (9) DVT prophylaxis (10) Hypertension (11) Hypokalemia (12) LE edema (13) Left leg cellulitis (14) Lower extremity pain, left (15) Lower extremity pain, left (16) Osteoporosis (17) Polyarthritis (18) Presence of IVC filter (19) Status post bilateral knee replacements (20) Syncope Surgical Problems: (1) S/P carpal tunnel release (2) S/P cholecystectomy (3) S/P hemorrhoidectomy (4) S/P tonsillectomy Family History Diabetes Colon cancer Social History Smoking Status: Never Smoker Drug Use: none Marital Status: single Housing status: lives alone Occupational Status: retired Immunizations History of Influenza Vaccine: No History of Tetanus Vaccine?: Yes History of Pneumococcal: Yes History of Hepatitis B Vaccine: Yes Allergies Coded Allergies: Penicillins (Verified Allergy, Mild, HIVES, 10/19/17) Adhesives (Verified Allergy, Unknown, LOCAL SKIN IRRITATION, 10/19/17) Terazosin (Verified Allergy, Unknown, PT UNSURE, 10/19/17) Home Medications Scheduled Albuterol Sulf (Proventil 0.083% 2.5MG/3ML), 2.5 MG INH QID Aspirin (Aspirin Chewable), 81 MG PO QAM Cholecalciferol (Vitamin D), 1.5 TAB PO DAILY Cyclosporine (Ophth) (Restasis), 1 DROP OPB BID Docusate Sodium (Colace), 100 MG PO BID Doxycycline Hyclate (Doxycycline Hyclate), 50 MG PO BID Ferrous Sulfate (Ferrous Sulfate), 325 MG PO BID Furosemide (Lasix), 60 MG PO BID Lactobacillus (Probiotic), 1 CAP PO BID Metoprolol Succinate (Toprol Xl), 100 MG PO DAILY Multiple Vitamins W/ Minerals (Prosight), 1 TAB PO BID Niacinamide (Niacinamide), 500 MG PO TID Omeprazole (Prilosec), 20 MG PO QAM Potassium Chloride (K-Tabs), 20 MEQ PO QAM Prednisone (Prednisone), 5 MG PO QAM Pyridoxine (Vitamin B6), 100 MG PO QAM Rivaroxaban (Xarelto), 15 MG PO QAM Scheduled PRN Acetaminophen (Tylenol), 650 MG PO Q4H PRN for PRN Bisacodyl (Dulcolax), 1 SUPP AR Q3D PRN for Constipation Guaifenesin (Ra Tussin), 10 ML PO Q6 PRN for Cough Magnesium Hydroxide (Milk Of Magnesia), 30 ML PO DAILY PRN for Constipation Sodium Phosphate/Biphosphate (Fleet Enema), 1 EA AR Q4DAYS PRN for Constipation Triamcinolone Acet (Aristocort 0.1%), 1 APPLN TOP Q12 PRN for BULLOUS PEMPHLAGOID LESIONS Review of Systems Constitutional: + fever, + chills, + sweats, + weakness, + fatigue, No weight loss Eyes: No worsening of vision, No eye pain, No redness, No discharge, No diplopia, No problem reported ENT: No hearing loss, No unusual epistaxis, No nasal symptoms, No sore throat, No tinnitus, No dental problems, No trouble swallowing, No problem reported Respiratory: No cough, No sputum, No wheezing, No shortness of breath, No dyspnea on exertion, No dyspnea at rest, No hemoptysis, No problem reported Cardiovascular: No chest pain, No orthopnea, No PND, No edema, No claudication , No palpitations, No problem reported Abdomen: + problem reported (poor appetite), No pain, No nausea, No vomiting, No diarrhea, No constipation, No GI bleeding Musculoskeletal: No joint pain, No muscle pain, No swelling Genitourinary - Female: No dysuria, No urinary frequency, No urinary urgency, No urinary incontinence, No urinary retention, No hematuria Neurologic: + memory loss, No paralysis, No weakness, No numbness/tingling, No vertigo, No balance problems Psychiatric: No depression symptoms, No anhedonism, No anxiety, No insomnia, No substance abuse, No problem reported Endocrine: No fatigue, No excessive thirst, No excessive urination, No problem reported Hematologic / Lymphatic: No abnormal bleeding/bruising, No clotting problems, No swollen lymph nodes, No night sweats, No problem reported Integumentary: + rash (right lower leg erythema, pain, draining fluid) Allergic / Immunologic: No environmental allergies, No seasonal allergies, No pet sensitivities, No food allergies, No hives, No frequent infections, No poor healing, No prolonged convalescence, No problem reported Physical Exam Vital Signs Date Time Temp Pulse Resp B/P (MAP) Pulse Ox O2 Delivery O2 Flow Rate FiO2 10/19/17 11:00 Room Air 10/19/17 11:00 36.6 118 20 95/58 (70) 97 Room Air 10/19/17 10:45 111 22 63/48 96 Room Air 10/19/17 10:00 119 18 98/62 99 Room Air 10/19/17 09:01 111 20 127/80 98 Room Air 10/19/17 08:53 96 Room Air 10/19/17 08:30 114 22 115/64 96 Room Air 10/19/17 07:50 124 21 120/64 96 Room Air 10/19/17 07:42 96 Room Air 10/19/17 07:31 129 7/15/18 07:30 37.4 105 16 120/64 96 Room Air General Appearance: no apparent distress, + obese Head: normocephalic, atraumatic Eyes: normal inspection, EOMI, sclerae normal ENT: normal ENT inspection, hearing grossly normal, pharynx normal Neck: supple, no adenopathy, no JVD, trachea midline Respiratory/Chest: chest non-tender, lungs clear, normal breath sounds, no respiratory distress, no accessory muscle use Cardiovascular: no edema, no gallop, no JVD, no murmur, normal peripheral pulses, + tachycardia, + irregularly irregular Abdomen/GI: normal bowel sounds, non tender, soft, no organomegaly Back: normal inspection, no CVA tenderness, no muscle spasm, normal range of motion Extremities/Musculoskelatal: normal inspection, no calf tenderness, normal capillary refill, no pedal edema, normal range of motion, non-tender, pelvis stable Neurologic/Psych: regulatory consultant II-XII nml as tested, no motor/sensory deficits, alert, normal mood/affect, normal reflexes, oriented x 3 Skin: + rash (erythema, tender, hot, clear drainage from right ankle to below the knee, circumferential) Diagnostics Laboratory Results Results Past 24 Hours Test 10/19/17 07:00 10/19/17 07:32 10/19/17 07:40 10/19/17 07:51 Range/Units White Blood Count 15.39 4.8-10.8 K/uL Red Blood Count 3.04 4.2-5.4 M/uL Hemoglobin 10.0 12.0-16.0 g/dL Hematocrit 30.3 37-47 % Mean Corpuscular Volume 99.7 80-100 fL Mean Corpuscular Hemoglobin 32.9 25-34 pg Mean Corpuscular Hemoglobin Concent 33.0 32-36 g/dl Platelet Count 117 130-400 K/uL Mean Platelet Volume 9.2 7.4-10.4 fL Neutrophils (%) (Auto) 86.8 % Lymphocytes (%) (Auto) 4.7 % Monocytes (%) (Auto) 8.1 % Eosinophils (%) (Auto) 0.0 % Basophils (%) (Auto) 0.0 % Neutrophils # (Auto) 13.37 1.4-6.5 K/uL Lymphocytes # (Auto) 0.72 1.2-3.4 K/uL Monocytes # (Auto) 1.24 0.11-0.59 K/uL Eosinophils # (Auto) 0.00 0-0.5 K/uL Basophils # (Auto) 0.00 0-0.2 K/uL RDW Standard Deviation 61.5 36.4-46.3 fL RDW Coefficient of Variation 17.1 11.5-14.5 % Immature Granulocyte % (Auto) 0.4 % Immature Granulocyte # (Auto) 0.06 0.00-0.02 K/uL Sodium Level 141 136-145 mmol/L Potassium Level 3.4 3.5-5.1 mmol/L Chloride Level 104 98-107 mmol/L Carbon Dioxide Level 27 21-32 mmol/L Anion Gap 10.0 3-11 mmol/L Blood Urea Nitrogen 37 7-18 mg/dl Creatinine 1.47 0.60-1.20 mg/dl Est Creatinine Clear Calc Drug Dose 26.2 ml/min Estimated GFR () 36.6 Estimated GFR (Non- 31.5 BUN/Creatinine Ratio 24.8 10-20 Random Glucose 146 70-99 mg/dl Calcium Level 9.1 8.5-10.1 mg/dl Total Bilirubin 1.4 0.2-1 mg/dl Aspartate Amino Transf (AST/SGOT) 23 15-37 U/L Alanine Aminotransferase (ALT/SGPT) 17 12-78 U/L Alkaline Phosphatase 53 45-117 U/L Total Creatine Kinase 75 26-192 U/L Creatine Kinase MB 1.1 0.5-3.6 ng/ml Creatine Kinase MB Ratio 1.5 0-3.0 Troponin I 0.183 0-0.045 ng/ml Total Protein 6.3 6.4-8.2 gm/dl Albumin 3.2 3.4-5.0 gm/dl Globulin 3.1 2.5-4.0 gm/dl Albumin/Globulin Ratio 1.0 0.9-2 Prothrombin Time 12.8 9.0-12.0 SECONDS Prothromb Time International Ratio 1.2 0.9-1.1 Activated Partial Thromboplast Time 33.8 21.0-31.0 SECONDS Partial Thromboplastin Ratio 1.3 Bedside Lactic Acid Venous 1.68 0.90-1.70 mmol/L Test 10/19/17 11:29 10/19/17 13:00 Range/Units Bedside Glucose 146 70-90 mg/dl Microbiology Results 10/19/17 Blood Culture, Received Pending 10/19/17 Blood Culture, Received Pending 10/19/17 MRSA DNA Surveillance Screen, Received Pending CXR normal EKG atrial fibrillation with RVR Impression Assessment and Plan 86 yo female with h/o chronic lymphedema and cellulitis in the past, presents with acute cellulitis of right lower leg - Cellulitis of right lower leg WBC 15k, systemic symptoms of chills, poor appetite, lethargy will treat with Rocephin and Vancomycin follow up on blood cultures drawn in the ED no signs of sepsis - Acute kidney injury, dehydration poor oral intake for past few days, infection, plus she typically takes Lasix 60mg BID Cr up to 1.47, baseline is 1.0 will treat with NSS at 100cc/hr, hold Lasix follow BMP in the morning, follow UO - Atrial fibrillation, RVR tachycardia due to infection and dehydration and she had not yet taken her Toprol Toprol 100mg PO given at time of admission IV fluids for volume support and try to decrease drive for tachycardia can use Lopressor IV as needed - Elevated troponin, likely demand ischemia troponin mildly high at 0.183 will trend for two more sets no chest pain or pressure, no EKG changes - Hypokalemia: 3.4 on admission, given 40mEq PO in the ED, repeat labs tomorrow - Chronic iron deficiency anemia: Hb stable at 10.0 - Obesity DVT prophylaxis: on Xarelto 15mg daily for afib Advanced Directives Existing Living Will: Yes Existing Power of Loading Unit Tool Setter: Yes (DEVON) Resuscitation Status DNR VTE Prophylaxis Will order VTE Prophylaxis: Yes Additional Copies To [place], [place]
[2017-10-19] MEDS ORDERED: METOPROLOL TARTRATE 1 MG/ML VIAL IV PRN (14:30)
[2017-10-20] VITALS (8 sets, daily range): BP systolic 82–131; BP diastolic 43–89; PULSE 91–130; TEMP 36.5–36.9; O2SAT 94–97
[2017-10-20] MEDS: ALBUMIN HUMAN 25% 12.5 GM/50 ML VIAL IV SCH ×2 (01:03→01:05)
[2017-10-20] MEDS: NSS + 20MEQ KCL 1000ML 1,000 ML IV SCH ×3 (01:03→20:40)
[2017-10-20 01:37] LABS: CALCIUM 8.7 mg/dl (8.5-10.1); CREATININE 1.64 mg/dl (0.60-1.20); POTASSIUM 4.4 mmol/L (3.5-5.1)
[2017-10-20] MEDS ORDERED: DIGOXIN IV 250 MCG in SYRINGE 9 ML IV ONE (02:45)
[2017-10-20] MEDS: HYDROCORTISONE IV 100 MG in SYRINGE 0 ML IV SCH ×3 (03:07→18:51)
[2017-10-20] MEDS: ACETAMINOPHEN 325 MG TAB PO PRN (03:14)
[2017-10-20 06:31] LABS: HEMATOCRIT 28.1 % (37-47); HEMOGLOBIN 9.2 g/dL (12.0-16.0); MEAN CELL VOLUME 101.1 fL (80-100); MEAN CORPUSCULAR HEMOGLOBIN 33.1 pg (25-34); MEAN CORPUSCULAR HGB CONC 32.7 g/dl (32-36); WHITE BLOOD COUNT 12.11 K/uL (4.8-10.8)
[2017-10-20 07:05] LABS: BASO % 0.1 %; BASO ABS # 0.01 K/uL (0-0.2); IG# 0.05 K/uL (0.00-0.02); LYMPH % 5.4 %; LYMPH ABS # 0.65 K/uL (1.2-3.4); MEAN PLATELET VOLUME 9.3 fL (7.4-10.4); MONO % 7.4 %; NEUT % 86.7 %; PLATELET COUNT 89 K/uL (130-400)
[2017-10-20 07:12] LABS: CALCIUM 8.7 mg/dl (8.5-10.1); CREATININE 1.59 mg/dl (0.60-1.20); POTASSIUM 4.5 mmol/L (3.5-5.1)
[2017-10-20] MEDS: ASPIRIN 81 MG ECTAB PO SCH (08:09)
[2017-10-20] MEDS: DOCUSATE SODIUM 100 MG CAP PO SCH ×2 (08:09→20:40)
[2017-10-20] MEDS: RIVAROXABAN TAB 15 MG TAB PO SCH (08:09)
[2017-10-20] MEDS: PYRIDOXINE HCL 50 MG TAB PO SCH (08:09)
[2017-10-20] MEDS: METOPROLOL SUCC 50MG EXT REL TAB PO SCH (08:10)
[2017-10-20] MEDS: CEFTRIAXONE SOD INJ 1,000 MG in DEXTROSE 5% 50ML 50 ML IV SCH (08:10)
[2017-10-20] MEDS: VANCOMYCIN IV 1,000 MG in SODIUM CHLORIDE 0.9% 250ML 250 ML IV SCH (09:34)
--- NOTE | 2017-10-20 09:41 | Pharmacy Progress Note ---
Pharmacy Abx Dose Short Note Date of Service Oct 20, 2017. Assessment & Plan @0030Assessment 86 year old female receiving vancomycin/ceftriaxone for treatment of SSTI. Day # 2 of antimicrobial therapy. Plan Vancomycin * Random level ~18 hours post loading doses is 12.6 mcg/mL. * Initiate 1000 mg IV every 32 hours * Goal trough level : 15 to 20 mcg/mL * Trough or random level ordered for: as clinically indicated, but will plan for 10/23/17 @ 0030. Pharmacy will continue to follow and will adjust dose/frequency as necessary. Thank you.
--- NOTE | 2017-10-20 10:19 | Clinical Documentation Query ---
CLINICAL DOCUMENTATION QUERY 86 year old female with cellulitis who takes Lasix BID at home. In your clinical opinion is this patient being managed for: ( x ) Chronic diastolic (preserved EF) CHF ( ) Not Agree ( ) Other explanation of clinical findings (No explanation is considered a No Response) ( ) Unable to determine ( ) Need to Discuss (Phone CDS or qliq) (No discussion is considered a No Response) The medical record reflects the following clinical findings, treatment, and risk factors. Clinical Indicators: Home diuretic therapy. Echo from 03/29/13 showed EF of 70% and grade II diastolic dysfunction Treatment: telemetry, I/O's, daily weights, Risk Factors: Age, HTN, Afib, Aortic stenosis Please clarify and document your clinical opinion in the progress notes and discharge summary. Terms such as "probable", "suspected", "likely", "questionable", "possible", or "still to be ruled out" are acceptable. IF IN AGREEMENT, YOU MUST DOCUMENT ABOVE DIAGNOSTIC STATEMENT IN DAILY PROGRESS NOTES AND DISCHARGE SUMMARY. This document is not part of the patient's record. Thank You, Rusty Jeffries, RN [phone] & via qlicCONNECT
[2017-10-20] MEDS ORDERED: DIGOXIN IV 125 MCG in SYRINGE 9.5 ML IV ONE ×2 (12:00→18:00)
--- NOTE | 2017-10-20 21:51 | Progress Note ---
Subjective Date of Service: Oct 20, 2017. Subjective Pt evaluation today including: conversation w/ patient, physical exam, lab review, review of inpatient medication list Pain: less pain in right leg PO Intake: adequate Voiding: no voiding problems patient doing a little better over night she received Digoxin 0.25mg IV and Hydrocortisone IV for stress dose steroids HR in the 100s this AM gave an additional two doses of digoxin to load her today and in the afternoon HR was remaining in the 90-100s cancelled echo, she just had one recently right leg with less pain today reviewed labs, WBC down to 12k, Cr up slightly to 1.5, Hb down slightly to 9 Problem List Medical Problems: (1) Anterior epistaxis Status: Acute (2) Fever Status: Acute Review of Systems Constitutional: + weakness, + fatigue Respiratory: + shortness of breath Cardiac: + edema Skin: + rash (right leg, tender, warm) All Other Systems: Reviewed and Negative Medications Current Inpatient Medications Medications (Trade) Dose Ordered Sig/Carrol Route Start Time Stop Time Status Last Admin Dose Admin Acetaminophen (Tylenol Tab) 650 mg Q4H PRN PO 10/19/17 09:00 11/18/17 08:59 10/20/17 03:14 650 MG Ondansetron HCl (Zofran Inj) 4 mg Q6H PRN IV 10/19/17 09:00 11/18/17 08:59 Polyethylene (Miralax Powder Packet) 17 gm DAILY PRN PO 10/19/17 09:00 11/18/17 08:59 Aspirin (Ecotrin Tab) 81 mg QAM PO 10/19/17 11:30 11/18/17 11:29 10/20/17 08:09 81 MG Docusate Sodium (coLACE CAP) 100 mg BID PO 10/19/17 11:30 11/18/17 11:29 10/20/17 08:09 100 MG Metoprolol Succinate (Toprol Xl Tab) 100 mg DAILY PO 10/19/17 11:30 11/18/17 11:29 10/20/17 08:10 100 MG Prednisone (PredniSONE TAB) 5 mg QAM PO 10/19/17 11:30 11/18/17 11:29 10/20/17 08:09 5 MG Pyridoxine HCl (Vitamin B-6 Tab) 100 mg QAM PO 7/15/18 11:30 11/18/17 11:29 10/20/17 08:09 100 MG Rivaroxaban (Xarelto Tab) 15 mg QAM PO 10/19/17 11:30 11/18/17 11:29 10/20/17 08:09 15 MG Potassium Chloride/Sodium Chloride 1,000 ml @ 100 mls/hr Q10H IV 10/19/17 11:30 11/18/17 11:29 10/20/17 20:40 100 MLS/HR Ceftriaxone Sodium 1000 mg/ Dextrose 60 ml @ 100 mls/hr DAILY IV 10/20/17 09:00 10/29/17 08:59 10/20/17 08:10 100 MLS/HR Vancomycin HCl (Consult) 1 ea UD PRN N/A 10/19/17 13:30 11/18/17 13:29 Metoprolol Tartrate (Lopressor Iv) 5 mg Q6 PRN IV 10/19/17 14:30 11/18/17 14:29 10/19/17 17:05 5 MG Hydrocortisone Sodium Succinate 100 mg/Syringe 2 ml @ 4 mls/min Q8H IV 10/20/17 03:00 11/19/17 02:59 10/20/17 18:51 4 MLS/MIN Vancomycin HCl 1000 mg/Sodium Chloride 270 ml @ 125 mls/hr Q32H IV 10/20/17 09:30 10/30/17 09:29 10/20/17 09:34 125 MLS/HR Digoxin (Lanoxin Tab) 0.125 mg DAILY@1600 PO 10/21/17 16:00 11/20/17 15:59 Objective Vital Signs Date Time Temp Pulse Resp B/P (MAP) Pulse Ox O2 Delivery O2 Flow Rate FiO2 10/20/17 19:27 36.9 97 20 121/76 (91) 96 Room Air 10/20/17 17:47 101 10/20/17 16:00 94 Room Air 10/20/17 15:09 36.5 98 20 131/89 (103) 94 Room Air 10/20/17 13:13 36.6 101 20 91/75 (80) 97 Room Air 10/20/17 12:32 110 10/20/17 08:10 Room Air 10/20/17 07:27 36.8 105 20 121/82 (95) 96 10/20/17 03:17 36.7 130 20 102/68 (79) 95 Room Air 10/20/17 03:07 124 10/20/17 01:53 121 82/43 (56) 91/58 (69) 10/19/17 23:38 36.3 123 20 93/62 (72) 97 Room Air Physical Exam General Appearance: no apparent distress, + obese Eyes: normal inspection, EOMI, sclerae normal ENT: normal ENT inspection, hearing grossly normal, pharynx normal Neck: supple, no adenopathy, no JVD Respiratory/Chest: chest non-tender, lungs clear, normal breath sounds, no respiratory distress, no accessory muscle use Cardiovascular: no edema, no gallop, no JVD, no murmur, + tachycardia, + irregularly irregular Abdomen: normal bowel sounds, non tender, soft, no organomegaly Extremities: normal range of motion, non-tender, normal inspection, no calf tenderness, pelvis stable, + pedal edema Neurologic/Psychiatric: 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 tested, alert, normal mood/affect, oriented x 3, + motor weakness Skin: + rash (right lower leg, less erythema, less pain, less warmth today) Laboratory Results Last 24 Hours Test 10/20/17 01:03 10/20/17 05:52 10/20/17 07:27 10/20/17 11:24 Sodium Level 140 mmol/L 139 mmol/L Potassium Level 4.4 mmol/L 4.5 mmol/L Chloride Level 107 mmol/L 108 mmol/L Carbon Dioxide Level 25 mmol/L 22 mmol/L Anion Gap 8.0 mmol/L 9.0 mmol/L Blood Urea Nitrogen 39 mg/dl 39 mg/dl Creatinine 1.64 mg/dl 1.59 mg/dl Est Creatinine Clear Calc Drug Dose 23.5 ml/min 24.2 ml/min Estimated GFR () 32.0 33.3 Estimated GFR (Non- 27.6 28.7 BUN/Creatinine Ratio 24.0 24.2 Random Glucose 127 mg/dl 114 mg/dl Calcium Level 8.7 mg/dl 8.7 mg/dl Magnesium Level 2.4 mg/dl 2.4 mg/dl White Blood Count 12.11 K/uL Red Blood Count 2.78 M/uL Hemoglobin 9.2 g/dL Hematocrit 28.1 % Mean Corpuscular Volume 101.1 fL Mean Corpuscular Hemoglobin 33.1 pg Mean Corpuscular Hemoglobin Concent 32.7 g/dl Platelet Count 89 K/uL Mean Platelet Volume 9.3 fL Neutrophils (%) (Auto) 86.7 % Lymphocytes (%) (Auto) 5.4 % Monocytes (%) (Auto) 7.4 % Eosinophils (%) (Auto) 0.0 % Basophils (%) (Auto) 0.1 % Neutrophils # (Auto) 10.50 K/uL Lymphocytes # (Auto) 0.65 K/uL Monocytes # (Auto) 0.90 K/uL Eosinophils # (Auto) 0.00 K/uL Basophils # (Auto) 0.01 K/uL RDW Standard Deviation 63.0 fL RDW Coefficient of Variation 17.0 % Immature Granulocyte % (Auto) 0.4 % Immature Granulocyte # (Auto) 0.05 K/uL Platelet Estimate DECREASED Random Vancomycin Level 12.6 mcg/ml Bedside Glucose 141 mg/dl 233 mg/dl Test 10/20/17 16:05 10/20/17 20:45 Bedside Glucose 138 mg/dl 163 mg/dl Assessment and Plan 86 yo female with h/o chronic lymphedema and cellulitis in the past, presents with acute cellulitis of right lower leg - Cellulitis of right lower leg WBC down to 12k, systemic symptoms of chills, poor appetite, lethargy are all improved continue Rocephin and Vancomycin for now, taper in 24-48 hours depending on clinical response follow up on blood cultures drawn in the ED - still pending no signs of sepsis - Acute kidney injury, dehydration poor oral intake for past few days, infection, plus she typically takes Lasix 60mg BID Cr up slightly to 1.5 from 1.4, baseline is 1.0 ATN vs pre-renal will continue NSS at 100cc/hr, hold Lasix if Cr not significantly improved by tomorrow AM then would hold on further fluids follow BMP in the morning, follow UO - Chronic Atrial fibrillation now with RVR tachycardia due to infection and dehydration Toprol 100mg PO given at time of admission but still with tachycardia for first 24 hours responded well to Digoxin 0.25mg IV x 1 gave 0.125mg IV x 2 today, start PO Digoxin tomorrow IV fluids for volume support and try to decrease drive for tachycardia continue anticoagulation with Xarelto - Elevated troponin, likely demand ischemia troponin mildly high at 0.183 on admission, repeat values were 0.19 and 0.15 likely due to increased cardiac demand with RVR no chest pain or pressure, no EKG changes - Hypokalemia: 3.4 on admission, given 40mEq PO in the ED, resolved today at 4.5 - Chronic diastolic heart failure: euvolemic, watch closely as providing fluids for renal failure - Chronic iron deficiency anemia: Hb down slightly at 9, continue to monitor - Obesity DVT prophylaxis: on Xarelto 15mg daily for afib Plan: continue IV antibiotics for cellulitis, start Digoxin PO tomorrow for better rate control, PT/OT evaluations from [facility] [place], will return when medically stable
[2017-10-21] VITALS (11 sets, daily range): BP systolic 129–165; BP diastolic 78–103; PULSE 80–106; TEMP 36.4–36.8; O2SAT 95–98
[2017-10-21] MEDS: HYDROCORTISONE IV 100 MG in SYRINGE 0 ML IV SCH ×2 (03:38→12:07)
[2017-10-21] MEDS: NSS + 20MEQ KCL 1000ML 1,000 ML IV SCH ×2 (03:38→15:31)
[2017-10-21 06:11] LABS: CREATININE 1.36 mg/dl (0.60-1.20)
[2017-10-21] MEDS: DOCUSATE SODIUM 100 MG CAP PO SCH ×2 (07:21→21:58)
[2017-10-21] MEDS: ASPIRIN 81 MG ECTAB PO SCH (07:38)
[2017-10-21] MEDS: CEFTRIAXONE SOD INJ 1,000 MG in DEXTROSE 5% 50ML 50 ML IV SCH (07:38)
[2017-10-21] MEDS: METOPROLOL SUCC 50MG EXT REL TAB PO SCH (07:38)
[2017-10-21] MEDS: PYRIDOXINE HCL 50 MG TAB PO SCH (07:38)
[2017-10-21] MEDS: RIVAROXABAN TAB 15 MG TAB PO SCH (07:38)
[2017-10-21 08:05] LABS: HEMATOCRIT 29.3 % (37-47); HEMOGLOBIN 9.4 g/dL (12.0-16.0); MEAN CELL VOLUME 100.3 fL (80-100); MEAN CORPUSCULAR HEMOGLOBIN 32.2 pg (25-34); MEAN CORPUSCULAR HGB CONC 32.1 g/dl (32-36); RED CELL DISTRIBUTION WIDTH CV 16.9 % (11.5-14.5); RED CELL DISTRIBUTION WIDTH SD 62.6 fL (36.4-46.3); WHITE BLOOD COUNT 10.23 K/uL (4.8-10.8)
[2017-10-21 08:07] LABS: CALCIUM 8.9 mg/dl (8.5-10.1); CREATININE 1.4 mg/dl (0.60-1.20); POTASSIUM 4.8 mmol/L (3.5-5.1)
[2017-10-21 08:28] LABS: MEAN PLATELET VOLUME 9.9 fL (7.4-10.4); PLATELET COUNT 90 K/uL (130-400)
[2017-10-21 08:33] LABS: IG# 0.04 K/uL (0.00-0.02); LYMPH % 6.7 %; LYMPH ABS # 0.69 K/uL (1.2-3.4); MONO % 7.1 %; MONO ABS # 0.73 K/uL (0.11-0.59); NEUT % 85.8 %; NEUT ABS # 8.77 K/uL (1.4-6.5)
[2017-10-21] MEDS: ALBUTEROL 0.083% NEBU SOLN 3 ML VIAL INH SCH ×2 (15:00→18:59)
[2017-10-21] MEDS: DIGOXIN 0.125 MG TAB PO SCH (15:32)
--- NOTE | 2017-10-21 16:35 | Hospitalist Progress Note ---
Hospitalist Progress Note Date of Service Oct 21, 2017. Subjective Pt evaluation today including: conversation w/ patient Patient has no complaints except for pain in the leg when touched. Denies chest pain or shortness of breath. She is eating and drinking. She is voiding. Telemetry with atrial fibrillation with rates in the 80s to low 100s, PVCs. Is afebrile. All Other Systems: Reviewed and Negative Objective Vital Signs Date Time Temp Pulse Resp B/P (MAP) Pulse Ox O2 Delivery O2 Flow Rate FiO2 10/21/17 15:52 36.4 80 16 148/90 (109) 96 Room Air 10/21/17 15:32 88 10/21/17 15:02 81 16 95 Room Air 10/21/17 11:30 93 97 10/21/17 10:49 36.8 83 20 146/83 (104) 97 Room Air 10/21/17 08:00 Room Air 10/21/17 07:13 36.6 106 20 129/78 (95) 97 Room Air 10/21/17 04:00 36.5 98 16 133/92 (106) 96 Room Air 10/20/17 23:59 Room Air 10/20/17 23:38 36.6 91 20 129/74 (92) 96 Room Air 10/20/17 19:27 36.9 97 20 121/76 (91) 96 Room Air 10/20/17 17:47 101 Physical Exam General Appearance: no apparent distress, + obese Eyes: normal inspection, sclerae normal ENT: hearing grossly normal Neck: trachea midline Respiratory/Chest: lungs clear, normal breath sounds, no respiratory distress, no accessory muscle use Cardiovascular: + irregularly irregular (With normal rate), + pertinent finding (3+ pitting edema in the legs bilaterally) Abdomen: normal bowel sounds, non tender, soft Extremities: + swelling (As above; right anterolateral leg with erythema with dressing in place over open wound, no drainage, tender to touch, no line drawn) Neurologic/Psychiatric: alert, normal mood/affect Skin: warm/dry Laboratory Results Last 24 Hours Test 10/20/17 20:45 10/21/17 05:18 10/21/17 05:19 Bedside Glucose 163 mg/dl Creatinine 1.36 mg/dl 1.40 mg/dl Est Creatinine Clear Calc Drug Dose 28.3 ml/min 27.9 ml/min Estimated GFR () 40.2 38.8 Estimated GFR (Non- 34.7 33.5 White Blood Count 10.23 K/uL Red Blood Count 2.92 M/uL Hemoglobin 9.4 g/dL Hematocrit 29.3 % Mean Corpuscular Volume 100.3 fL Mean Corpuscular Hemoglobin 32.2 pg Mean Corpuscular Hemoglobin Concent 32.1 g/dl Platelet Count 90 K/uL Mean Platelet Volume 9.9 fL Neutrophils (%) (Auto) 85.8 % Lymphocytes (%) (Auto) 6.7 % Monocytes (%) (Auto) 7.1 % Eosinophils (%) (Auto) 0.0 % Basophils (%) (Auto) 0.0 % Neutrophils # (Auto) 8.77 K/uL Lymphocytes # (Auto) 0.69 K/uL Monocytes # (Auto) 0.73 K/uL Eosinophils # (Auto) 0.00 K/uL Basophils # (Auto) 0.00 K/uL RDW Standard Deviation 62.6 fL RDW Coefficient of Variation 16.9 % Immature Granulocyte % (Auto) 0.4 % Immature Granulocyte # (Auto) 0.04 K/uL Sodium Level 140 mmol/L Potassium Level 4.8 mmol/L Chloride Level 111 mmol/L Carbon Dioxide Level 23 mmol/L Anion Gap 6.0 mmol/L Blood Urea Nitrogen 42 mg/dl BUN/Creatinine Ratio 30.3 Random Glucose 123 mg/dl Calcium Level 8.9 mg/dl Assessment and Plan This patient is an 86 yo female with h/o chronic lymphedema and cellulitis in the past, chronic diastolic CHF, chronic atrial fibrillation on Xarelto, pacemaker in situ, aortic stenosis, iron deficiency anemia, obesity, COPD, GERD , polyarthritis on chronic prednisone, presents with acute cellulitis of right lower leg - Cellulitis of right lower leg-seems to be improving, leukocytosis resolved, remains afebrile On admission had leukocytosis, systemic symptoms of chills, poor appetite, lethargy-all resolved continue Rocephin and Vancomycin for now, taper in 24-48 hours depending on clinical response-to p.o. antibiotics to complete 10 day course follow up on blood cultures drawn in the ED -no growth to date no signs of sepsis Elevation of lower extremities DC IV fluids - Acute kidney injury, dehydration-creatinine on admission 1.5, now down to 1.4 and stable with IV fluids -Secondary to poor oral intake for past few days, infection, plus she typically takes Lasix 60mg BID ATN vs pre-renal DC IV fluids and continue to hold Lasix follow BMP in the morning, follow UO - Chronic Atrial fibrillation now with RVR-rates much improved after adding digoxin. With pacemaker in situ. Follows with Dr. mc tachycardia due to infection and dehydration on admission and now improved after IV fluids and adding digoxin Toprol 100mg PO given at time of admission but still with tachycardia for first 24 hours responded well to Digoxin 0.25mg IV x 1 followed by 0.125mg IV x 2 -Continue digoxin 0.125 mg p.o. once daily -Continue anticoagulation with Xarelto renally dosed -Continue on telemetry monitoring Chronic diastolic CHF-stable -Restart Lasix likely tomorrow - Elevated troponin, likely myocardial demand ischemia troponin mildly high at 0.183 on admission, repeat values were 0.19 and 0.15 likely due to increased cardiac demand with RVR no chest pain or pressure, no EKG changes - Hypokalemia: 3.4 on admission, given 40mEq PO in the ED, resolved -Follow BMP -Chronic macrocytic anemia: Hb down slightly at 9.4 but stable from previous, continue to monitor -Check B12 and folate given macrocytosis, check iron studies given history of iron deficiency anemia Hypotension-likely secondary to infection and dehydration in the setting of chronic prednisone use and adrenal insufficiency -Blood pressures improved with IV hydrocortisone-taper down to 50 mg IV every 8 today - Obesity, BMI 41.9 -Needs weight loss DVT prophylaxis: on Xarelto 15mg daily for afib Plan: continue IV antibiotics for cellulitis, PT/OT evaluations from [facility], will return when medically stable
[2017-10-21] MEDS: VANCOMYCIN IV 1,000 MG in SODIUM CHLORIDE 0.9% 250ML 250 ML IV SCH (17:18)
[2017-10-21] MEDS: HYDROCORTISONE IV 50 MG in SYRINGE 0 ML IV SCH (19:13)
[2017-10-21] MEDS ORDERED: NURSING VERBAL MED ORDER ONE (20:15)
[2017-10-21] MEDS ORDERED: SODIUM CHLORIDE 0.65% NA SOLN 45 ML (OCEAN) ONE (20:44)
[2017-10-21] MEDS ORDERED: SODIUM CHLORIDE 0.65% NA SOLN 45 ML (OCEAN) PRN (21:30)
[2017-10-22] VITALS (9 sets, daily range): BP systolic 123–161; BP diastolic 72–124; PULSE 80–105; TEMP 36–36.8; O2SAT 96–100
[2017-10-22] MEDS: ALBUTEROL 0.083% NEBU SOLN 3 ML VIAL INH SCH ×2 (01:54→06:55)
[2017-10-22] MEDS: HYDROCORTISONE IV 50 MG in SYRINGE 0 ML IV SCH ×2 (03:10→11:24)
[2017-10-22 06:38] LABS: CALCIUM 9.6 mg/dl (8.5-10.1); CREATININE 1.35 mg/dl (0.60-1.20); POTASSIUM 4.9 mmol/L (3.5-5.1)
[2017-10-22] MEDS ORDERED: ALBUTEROL 0.083% NEBU SOLN 3 ML VIAL INH PRN (07:45)
[2017-10-22] MEDS: CEFTRIAXONE SOD INJ 1,000 MG in DEXTROSE 5% 50ML 50 ML IV SCH (08:04)
[2017-10-22] MEDS: ASPIRIN 81 MG ECTAB PO SCH (08:04)
[2017-10-22] MEDS: RIVAROXABAN TAB 15 MG TAB PO SCH (08:04)
[2017-10-22] MEDS: METOPROLOL SUCC 50MG EXT REL TAB PO SCH (08:04)
[2017-10-22] MEDS: PYRIDOXINE HCL 50 MG TAB PO SCH (08:05)
[2017-10-22] MEDS: FUROSEMIDE 40 MG TAB PO SCH ×2 (08:07→16:49)
[2017-10-22] MEDS: DOCUSATE SODIUM 100 MG CAP PO SCH ×2 (08:08→20:14)
[2017-10-22] MEDS ORDERED: NURSING VERBAL MED ORDER ONE (08:30)
[2017-10-22] MEDS: DIGOXIN 0.125 MG TAB PO SCH (16:49)
[2017-10-22] MEDS ORDERED: METOPROLOL SUCC 25MG EXT REL TAB PO STA (17:43)
--- NOTE | 2017-10-22 17:47 | Hospitalist Progress Note ---
Hospitalist Progress Note Date of Service Oct 22, 2017. Subjective Pt evaluation today including: conversation w/ patient Patient reports feeling short of breath with minimal exertion. Telemetry reveals bursts of A. fib in the 140s with exertion. Otherwise denies chest pain. Leg is feeling better. Constitutional: No fever, No chills All Other Systems: Reviewed and Negative Objective Vital Signs Date Time Temp Pulse Resp B/P (MAP) Pulse Ox O2 Delivery O2 Flow Rate FiO2 10/22/17 16:49 93 10/22/17 15:48 36.6 94 18 127/87 (100) 99 Room Air 10/22/17 11:00 138/86 (103) 10/22/17 10:55 36.8 102 20 140/110 (120) 96 Room Air 161/124 (136) 10/22/17 08:20 Room Air 10/22/17 07:24 36.5 105 20 131/96 (108) 100 Room Air 10/22/17 06:56 80 16 98 Room Air 10/22/17 04:03 36.6 90 19 123/72 (89) 100 Room Air 10/22/17 01:54 92 16 98 Room Air 10/21/17 23:59 95 Room Air 10/21/17 23:23 36.5 82 18 147/86 (106) 95 Room Air 10/21/17 18:59 103 16 95 Room Air 10/21/17 18:49 36.4 105 20 165/98 (120) 98 Room Air 151/103 (119) Physical Exam General Appearance: WD/WN, no apparent distress Eyes: normal inspection, sclerae normal ENT: hearing grossly normal Neck: trachea midline Respiratory/Chest: lungs clear, normal breath sounds, no respiratory distress, no accessory muscle use Cardiovascular: + systolic murmur (At RUSB), + irregularly irregular (With normal rate) Abdomen: normal bowel sounds, non tender, soft Extremities: + swelling (2+ pitting edema of legs bilaterally) Neurologic/Psychiatric: alert Skin: + pertinent finding (Right anterior leg with mild erythema surrounding superficial abrasion with some serous drainage, erythema much improved from previous; multiple scattered ecchymotic areas on the arms and legs) Laboratory Results Last 24 Hours Test 10/22/17 05:24 10/22/17 07:27 10/22/17 10:51 Sodium Level 139 mmol/L Potassium Level 4.9 mmol/L Chloride Level 110 mmol/L Carbon Dioxide Level 22 mmol/L Anion Gap 8.0 mmol/L Blood Urea Nitrogen 45 mg/dl Creatinine 1.35 mg/dl Est Creatinine Clear Calc Drug Dose 29.3 ml/min Estimated GFR () 40.5 Estimated GFR (Non- 35.0 BUN/Creatinine Ratio 33.0 Random Glucose 141 mg/dl Calcium Level 9.6 mg/dl Magnesium Level 2.7 mg/dl Iron Level 43 mcg/dl Total Iron Binding Capacity 187 mcg/dl Transferrin 151 mg/dl Transferrin % Saturation 20 % Ferritin 728.0 ng/ml Vitamin B12 Level 558 pg/mL Folate 9.17 ng/mL Bedside Glucose 138 mg/dl 170 mg/dl Assessment and Plan This patient is an 86 yo female with h/o chronic lymphedema and cellulitis in the past, chronic diastolic CHF, paroxysmal atrial fibrillation on Xarelto, sick sinus syndrome now status post pacemaker in situ, severe aortic stenosis, iron deficiency anemia, obesity, COPD, GERD, polyarthritis, bullous pemphigoid, chronic prednisone therapy, presents with acute cellulitis of right lower leg - Cellulitis of right lower leg-in the setting of chronic lymphedema, continues to improve, leukocytosis resolved, remains afebrile On admission had leukocytosis, systemic symptoms of chills, poor appetite, lethargy-all resolved continue Rocephin and Vancomycin and will most likely oil changer to p.o. antibiotics tomorrow to complete 10 day course-likely Keflex follow up on blood cultures drawn in the ED -no growth to date no signs of sepsis Elevation of lower extremities - Acute kidney injury, dehydration-creatinine on admission 1.5, now down to 1.35 and stable with IV fluids -Secondary to poor oral intake for past few days, infection, plus she typically takes Lasix twice daily ATN vs pre-renal -Okay to restart Lasix today follow BMP in the morning, follow UOP -Paroxysmal atrial fibrillation now with RVR/SSS status post pacemaker-rates improved after adding digoxin, however still with bursts into the 140s that are symptomatic with shortness of breath with minimal exertion tachycardia due to infection and dehydration on admission and now somewhat improved after IV fluids and adding digoxin Increase Toprol to 150 mg daily and will give an extra 25 mg daily now responded well to Digoxin 0.25mg IV x 1 followed by 0.125mg IV x 2 -Continue digoxin 0.125 mg p.o. once daily -Continue anticoagulation with Xarelto renally dosed -Continue on telemetry monitoring -Consult her supervisor customer complaint service for further management Chronic diastolic CHF-stable -Restarted Lasix 40 mg twice daily today - Elevated troponin, likely myocardial demand ischemia troponin mildly high at 0.183 on admission, repeat values were 0.19 and 0.15 likely due to increased cardiac demand with RVR no chest pain or pressure, no EKG changes - Hypokalemia: 3.4 on admission, given 40mEq PO in the ED, resolved -Follow BMP -Chronic macrocytic anemia: Hb down slightly at 9.4 but stable from previous, continue to monitor - B12 and folate were checked given macrocytosis and were normal, iron studies checked and consistent with anemia of chronic disease Severe aortic stenosis-last echocardiogram 2013 showed severe -Avoid extremes of volume status, has not had syncope since pacemaker placement, no angina -Follows routinely with cardiology Hypotension-likely secondary to infection and dehydration in the setting of chronic prednisone use and adrenal insufficiency-however review of outpatient records today shows that dermatology discontinued her prednisone in 01/2017? Unclear why it is on the medication reconciliation. Regardless, she did respond well to IV hydrocortisone. -Blood pressures improved with IV hydrocortisone-continue to taper down to 25 mg IV every 8h today -Need to sort out with her whether she is actually on prednisone 5 mg daily - Obesity, BMI 41.9 -Needs weight loss Bullous pemphigoid-followed by dermatology-with large ecchymotic appearing lesions which are chronic and secondary to this condition. Previously on prednisone for this -Is also supposed to be on niacinamide 500 mg p.o. 3 times daily, and doxycycline 50 mill grams p.o. twice daily-we will confirm the patient is actually taking these DVT prophylaxis: on Xarelto 15mg daily for afib Plan: continue IV antibiotics for cellulitis, PT/OT evaluations from [facility], will return when medically stable-possibly in the next 1- 2 days once atrial fibrillation rates are improved
[2017-10-22] MEDS: HYDROCORTISONE IV 25 MG in SYRINGE 0 ML IV SCH (18:44)
[2017-10-23] VITALS (11 sets, daily range): BP systolic 123–159; BP diastolic 61–98; PULSE 71–95; TEMP 36.3–36.7; O2SAT 90–100
[2017-10-23] MEDS ORDERED: VANCOMYCIN TROUGH ONE (01:00)
[2017-10-23] MEDS: VANCOMYCIN IV 1,000 MG in SODIUM CHLORIDE 0.9% 250ML 250 ML IV SCH (01:34)
[2017-10-23] MEDS: HYDROCORTISONE IV 25 MG in SYRINGE 0 ML IV SCH ×3 (03:30→19:09)
[2017-10-23 06:30] LABS: BASO % 0.1 %; BASO ABS # 0.01 K/uL (0-0.2); EOS % 0.1 %; EOS ABS # 0.01 K/uL (0-0.5); HEMATOCRIT 29.8 % (37-47); HEMOGLOBIN 9.7 g/dL (12.0-16.0); IG# 0.07 K/uL (0.00-0.02); LYMPH % 6.2 %; MEAN CELL VOLUME 99.7 fL (80-100); MEAN CORPUSCULAR HEMOGLOBIN 32.4 pg (25-34); MEAN CORPUSCULAR HGB CONC 32.6 g/dl (32-36); MEAN PLATELET VOLUME 9.5 fL (7.4-10.4); MONO % 13.6 %; NEUT % 79.1 %; NEUT ABS # 6.38 K/uL (1.4-6.5); NUCLEATED RED BLOOD CELL ABS 0.02 K/uL (0-0); PLATELET COUNT 112 K/uL (130-400); RED CELL DISTRIBUTION WIDTH CV 16.7 % (11.5-14.5); RED CELL DISTRIBUTION WIDTH SD 60.7 fL (36.4-46.3); WHITE BLOOD COUNT 8.07 K/uL (4.8-10.8)
[2017-10-23 06:54] LABS: CALCIUM 9.6 mg/dl (8.5-10.1); CREATININE 1.29 mg/dl (0.60-1.20); POTASSIUM 4.6 mmol/L (3.5-5.1)
[2017-10-23] MEDS: CEFTRIAXONE SOD INJ 1,000 MG in DEXTROSE 5% 50ML 50 ML IV SCH (08:12)
[2017-10-23] MEDS: PYRIDOXINE HCL 50 MG TAB PO SCH (08:13)
[2017-10-23] MEDS: RIVAROXABAN TAB 15 MG TAB PO SCH (08:13)
[2017-10-23] MEDS: ASPIRIN 81 MG ECTAB PO SCH (08:13)
[2017-10-23] MEDS: FUROSEMIDE 40 MG TAB PO SCH ×2 (08:13→16:10)
[2017-10-23] MEDS: METOPROLOL SUCC 50MG EXT REL TAB PO SCH (08:13)
[2017-10-23] MEDS: DOCUSATE SODIUM 100 MG CAP PO SCH ×2 (08:14→19:09)
--- NOTE | 2017-10-23 09:57 | Cardiology Consultation ---
Cardiology Consultation Date of Consultation: Oct 23, 2017. Requesting Physician: Dr. Pitts Reason for Consultation: AF with RVR Pt evaluation today including: conversation w/ patient, physical exam, lab review, review of studies, review of inpatient medication list History of Present Illness This is a very pleasant 86-year-old woman who has a history of aortic stenosis and periodic syncope. She was admitted to [facility] with an episode of syncope, on monitoring she was observed to have periods of bradycardia associated with sudden heart rate drop with heart rates in the low 40s and occasionally in the high 30s. 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 She therefore underwent dual-chamber pacemaker implantation on February 01, 2010. That device reached [facility] and was replaced on 08/05/2017 using the chronic leads. She has had cardiac catheterization to look at her coronary anatomy 02/02/2010 and she did not have evident coronary artery disease. She has refused aortic valve replacement although she has had severe aortic stenosis. 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 She was anticoagulated but developed a retroperitoneal bleed and anticoagulation was discontinued, and IVC filter was placed. Historically she has had rare episodes of atrial fibrillation that were brief ( less than 6 hours) therefore she was not initially on an anticoagulant. After her pacemaker replacement however she was seen in the office on September 17, 2017 and although she felt well she had been in atrial fibrillation since the end of August was fully. She was started on Xarelto 15 mg daily. We had planned on reevaluating her in 3 months to see whether she remained in atrial fibrillation. She is now admitted with cellulitis, however she remains in atrial fibrillation and at times has rapid heart rates. Dramatically she is doing well from the cardiovascular standpoint, but short of breath but is unaware of palpitations and has no lightheadedness or dizziness. She seems unaware of the arrhythmia. Past Medical/Surgical History (1) Osteoporosis (2) Polyarthritis (3) Aortic stenosis (4) Hypertension (5) Status post bilateral knee replacements (6) CVA (cerebral vascular accident) (7) Deep vein thrombosis (8) Presence of IVC filter Family History No pertinent family history Social History Smoking Status: Never Smoker History of Alcohol Use: No Review of Systems Constitutional: No fever, No weight loss, No weakness Respiratory: + shortness of breath Cardiac: + see HPI, + edema, No chest pain, No palpitations Abdomen: No pain, No nausea, No vomiting, No diarrhea, No GI bleeding Female : No problem reported Neurologic: No paralysis, No weakness, No numbness/tingling, No balance problems Heme: No abnormal bleeding/bruising, No clotting problems Endo: No fatigue Skin: No problem reported Leg pain All Other Systems: Reviewed and Negative Allergies Coded Allergies: Penicillins (Verified Allergy, Mild, HIVES, 10/19/17) Adhesives (Verified Allergy, Unknown, LOCAL SKIN IRRITATION, 10/19/17) Terazosin (Verified Allergy, Unknown, PT UNSURE, 10/19/17) Medications Current Inpatient Medications Medications (Trade) Dose Ordered Sig/Carrol Route Start Time Stop Time Status Last Admin Dose Admin Acetaminophen (Tylenol Tab) 650 mg Q4H PRN PO 10/19/17 09:00 11/18/17 08:59 10/20/17 03:14 650 MG Ondansetron HCl (Zofran Inj) 4 mg Q6H PRN IV 10/19/17 09:00 11/18/17 08:59 Polyethylene (Miralax Powder Packet) 17 gm DAILY PRN PO 10/19/17 09:00 11/18/17 08:59 Aspirin (Ecotrin Tab) 81 mg QAM PO 10/19/17 11:30 11/18/17 11:29 10/23/17 08:13 81 MG Docusate Sodium (coLACE CAP) 100 mg BID PO 10/19/17 11:30 11/18/17 11:29 10/20/17 08:09 100 MG Prednisone (PredniSONE TAB) 5 mg QAM PO 10/19/17 11:30 11/18/17 11:29 10/23/17 08:13 5 MG Pyridoxine HCl (Vitamin B-6 Tab) 100 mg QAM PO 10/19/17 11:30 11/18/17 11:29 10/23/17 08:13 100 MG Rivaroxaban (Xarelto Tab) 15 mg QAM PO 10/19/17 11:30 11/18/17 11:29 10/23/17 08:13 15 MG Ceftriaxone Sodium 1000 mg/ Dextrose 60 ml @ 100 mls/hr DAILY IV 10/20/17 09:00 10/29/17 08:59 10/23/17 08:12 100 MLS/HR Vancomycin HCl (Consult) 1 ea UD PRN N/A 10/19/17 13:30 11/18/17 13:29 Metoprolol Tartrate (Lopressor Iv) 5 mg Q6 PRN IV 10/19/17 14:30 11/18/17 14:29 10/19/17 17:05 5 MG Vancomycin HCl 1000 mg/Sodium Chloride 270 ml @ 125 mls/hr Q32H IV 10/20/17 09:30 10/30/17 09:29 10/23/17 01:34 125 MLS/HR Digoxin (Lanoxin Tab) 0.125 mg DAILY@1600 PO 10/21/17 16:00 11/20/17 15:59 10/22/17 16:49 0.125 MG Sodium Chloride (Henry Nasal Ninole) 1 sprays PRN PRN NA 10/21/17 21:30 11/20/17 21:29 10/21/17 21:58 1 SPRAYS Furosemide (Lasix Tab) 40 mg BID17 PO 10/22/17 09:00 11/21/17 08:59 10/23/17 08:13 40 MG Albuterol Sulfate (Ventolin 0.083% 2.5MG/3ML Neb) 2.5 mg Q2H PRN INH 10/22/17 07:45 11/21/17 07:44 Hydrocortisone Sodium Succinate 25 mg/Syringe 0.5 ml @ 4 mls/min Q8H IV 10/22/17 19:00 11/19/17 02:59 10/23/17 03:30 4 MLS/MIN Metoprolol Succinate (Toprol Xl Tab) 150 mg DAILY PO 10/23/17 09:00 11/18/17 11:29 10/23/17 08:13 150 MG Physical Exam Vital Signs Past 12 Hours Date Time Temp Pulse Resp B/P (MAP) Pulse Ox O2 Delivery O2 Flow Rate FiO2 10/23/17 08:35 Room Air 10/23/17 07:46 36.4 83 18 130/65 (86) 97 Room Air 7/19/18 05:02 36.4 88 19 132/83 (99) 99 Room Air 10/22/17 23:17 36.0 89 19 125/97 (106) 98 Room Air Constitutional: General Apperance: overweight Level of Distress: NAD Psychiatric: Mental Status: active & alert Head: normocephalic Eyes: EOM: EOMI ENMT: normal ENT inspection, hearing grossly normal Neck: supple, no masses Lungs: Respiratory effort: no dyspnea, good air movement Auscultation: breath sounds normal, no wheezing Cardiovascular: Heart Auscultation: no rubs, no gallops, III/ PALLAVI, irregular rate rhythm Peripheral Pulses: Bruits: none appreciated Abdomen: Bowel Sounds: normal Inspection & Palpation: soft, no tenderness, guarding & rebound, no masses Musculoskeletal: normal strength (5/5 throughout) Extremities: no edema Neurologic: Cranial Nerves: grossly intact Sensation: grossly intact Data Laboratory Results: Last 24 Hours Test 10/22/17 10:51 10/22/17 16:47 10/22/17 21:03 10/23/17 01:02 Bedside Glucose 170 mg/dl 129 mg/dl 128 mg/dl Vancomycin Level Trough 14.3 mcg/ml Test 10/23/17 05:57 10/23/17 07:22 White Blood Count 8.07 K/uL Red Blood Count 2.99 M/uL Hemoglobin 9.7 g/dL Hematocrit 29.8 % Mean Corpuscular Volume 99.7 fL Mean Corpuscular Hemoglobin 32.4 pg Mean Corpuscular Hemoglobin Concent 32.6 g/dl Platelet Count 112 K/uL Mean Platelet Volume 9.5 fL Neutrophils (%) (Auto) 79.1 % Lymphocytes (%) (Auto) 6.2 % Monocytes (%) (Auto) 13.6 % Eosinophils (%) (Auto) 0.1 % Basophils (%) (Auto) 0.1 % Neutrophils # (Auto) 6.38 K/uL Lymphocytes # (Auto) 0.50 K/uL Monocytes # (Auto) 1.10 K/uL Eosinophils # (Auto) 0.01 K/uL Basophils # (Auto) 0.01 K/uL RDW Standard Deviation 60.7 fL RDW Coefficient of Variation 16.7 % Immature Granulocyte % (Auto) 0.9 % Immature Granulocyte # (Auto) 0.07 K/uL Nucleated RBC Absolute Count (auto) 0.02 K/uL Nucleated Red Blood Cells % 0.2 % Sodium Level 140 mmol/L Potassium Level 4.6 mmol/L Chloride Level 109 mmol/L Carbon Dioxide Level 23 mmol/L Anion Gap 8.0 mmol/L Blood Urea Nitrogen 45 mg/dl Creatinine 1.29 mg/dl Est Creatinine Clear Calc Drug Dose 31.0 ml/min Estimated GFR () 42.8 Estimated GFR (Non- 36.9 BUN/Creatinine Ratio 35.0 Random Glucose 89 mg/dl Calcium Level 9.6 mg/dl Magnesium Level 2.7 mg/dl Bedside Glucose 87 mg/dl Imaging: Admission chest x-ray without CHF EKG: On admission her electrocardiogram showed atrial fibrillation with a rate of 125 bpm, she did have diffuse ST-T abnormalities but is on Digoxin. Subsequent electrocardiograms have shown better control of her heart rate. Telemetry reviewed: Atrial fibrillation since admission, periods of somewhat rapid heart rate but they are brief. Overall the heart rate is generally less than 100. Pacer interrogation: She has been in atrial fibrillation since September 03, 2017. Pacer working well. Assessment & Plan 1. Atrial fibrillation: She has remained in atrial fibrillation since September 03, 2017 (confirmed by pacemaker monitoring), for the most part her heart rate is reasonably well controlled although at times it is quite fast (which seems to be with activity or anxiety). She is on fairly high dose beta-blockade and on digoxin, I do not see a digoxin level. Her blood pressure has not been low on the beta-blockade. I am going to get a digoxin level to see where that stands, we can go up further on the beta-dayanara if needed. Alternatively we can convert the rhythm back to normal, she may be at high risk for anesthesia for cardioversion, we could consider chemical cardioversion (IV amiodarone) although I am not sure it is necessary and over the long run may not provide much benefit. 2. Aortic stenosis: She has severe aortic stenosis but has refused valve replacement in the past. I did not readdress that issue. 3. Dual-chamber pacemaker: Her pacemaker is functioning well, interrogation today demonstrates continuous atrial fibrillation since September 03, 2017, overall heart rate reasonably well controlled. Battery voltage excellent. Thank you for allowing me to participate in her care.
--- NOTE | 2017-10-23 12:33 | Pharmacy Progress Note ---
Pharmacy Abx Dose Progress Nt Date of Service Oct 23, 2017. Pharmacy Dosing Scope The patient is currently receiving the following antimicrobial agents per Pharmacy consult: Vancomycin 1000 mg IV every 32 hours Objective Height (Feet): 4 Height (Inches): 11.00 Weight (Kilograms): 98.100 Vital Signs (Past 12Hrs) Vital Signs Past 12 Hours Date Time Temp Pulse Resp B/P (MAP) Pulse Ox O2 Delivery O2 Flow Rate FiO2 10/23/17 11:54 36.6 86 19 134/81 (98) 98 Room Air 10/23/17 08:35 Room Air 10/23/17 07:46 36.4 83 18 130/65 (86) 97 Room Air 10/23/17 05:02 36.4 88 19 132/83 (99) 99 Room Air Lab Results (24Hrs) Laboratory Tests (24 Hours) Test 10/23/17 05:57 White Blood Count 8.07 K/uL (4.8-10.8) Red Blood Count 2.99 M/uL (4.2-5.4) L Hemoglobin 9.7 g/dL (12.0-16.0) L Hematocrit 29.8 % (37-47) L Mean Corpuscular Volume 99.7 fL (80-100) Mean Corpuscular Hemoglobin 32.4 pg (25-34) Mean Corpuscular Hemoglobin Concent 32.6 g/dl (32-36) Platelet Count 112 K/uL (130-400) L Mean Platelet Volume 9.5 fL (7.4-10.4) Neutrophils (%) (Auto) 79.1 % Lymphocytes (%) (Auto) 6.2 % Monocytes (%) (Auto) 13.6 % Eosinophils (%) (Auto) 0.1 % Basophils (%) (Auto) 0.1 % Neutrophils # (Auto) 6.38 K/uL (1.4-6.5) Lymphocytes # (Auto) 0.50 K/uL (1.2-3.4) L Monocytes # (Auto) 1.10 K/uL (0.11-0.59) H Eosinophils # (Auto) 0.01 K/uL (0-0.5) Basophils # (Auto) 0.01 K/uL (0-0.2) Micro Results Date/Time Source Procedure Growth Status 10/19/17 07:45 Blood Blood Culture - Preliminary NO GROWTH TO DATE. Resulted 10/19/17 07:40 Blood Blood Culture - Preliminary NO GROWTH TO DATE. Resulted 10/19/17 11:15 Nasal MRSA DNA Surveillance Screen - Final Specimen Negative for MRSA by DNA Probe Complete 10/19/17 00:00 Urine,Catheterized Urine Culture - Final PLEASE CALL THE LABORATORY [facility] AT 81... Complete Assessment & Plan Assessment * 86 year old female receiving vancomycin for treatment of cellulitis * Day #5 of antimicrobial therapy * Plans to switch patient to oral antibiotic therapy today Plan Vancomycin IV * Vd ~0.54, ~Ke 0.030 hr-1, t1/2 23 hr * Trough level of 14.3 mcg/mL is therapeutic * Continue dose of 1000mg IV every 32 hours until patient is switched to PO abx therapy * Goal trough level: 10-20 mcg/mL * Extended dosing interval selected due to likelihood of drug accumulation in obese patient. Rocephin * 1g Q24H Pharmacy will continue to follow and will adjust dose/frequency as necessary. Thank you.
[2017-10-23] MEDS ORDERED: AMIODARONE IV BOLUS / DRIP IV STA (15:34)
[2017-10-23] MEDS ORDERED: AMIODARONE / D5W 100 ML IV SCH (15:50)
[2017-10-23] MEDS ORDERED: AMIODARONE / D5W 200 ML IV SCH (16:00)
[2017-10-23] MEDS: DIGOXIN 0.125 MG TAB PO SCH (16:06)
--- NOTE | 2017-10-23 20:03 | Hospitalist Progress Note ---
Hospitalist Progress Note Date of Service Oct 23, 2017. Subjective Pt evaluation today including: conversation w/ patient Rates are better controlled with her A. palmira today especially after starting on IV amiodarone discussed the case with cardiology at length today. Patient reports feeling better and less short of breath now that her rates are controlled. Still with pain in the right leg. Denies chest pain. She is tolerating p.o. without nausea or vomiting. She is out of bed and ambulated today. All Other Systems: Reviewed and Negative Objective Vital Signs Date Time Temp Pulse Resp B/P (MAP) Pulse Ox O2 Delivery O2 Flow Rate FiO2 10/23/17 19:08 36.7 71 20 138/67 (90) 100 Room Air 10/23/17 17:00 73 157/65 (95) 98 Room Air 10/23/17 16:46 71 159/98 (118) 10/23/17 16:23 93 22 142/95 (111) 99 Room Air 10/23/17 16:07 91 151/85 (107) 10/23/17 16:06 91 10/23/17 16:02 36.6 95 20 140/96 (111) 97 Room Air 10/23/17 11:54 36.6 86 19 134/81 (98) 98 Room Air 10/23/17 08:35 Room Air 10/23/17 07:46 36.4 83 18 130/65 (86) 97 Room Air 10/23/17 05:02 36.4 88 19 132/83 (99) 99 Room Air 10/22/17 23:17 36.0 89 19 125/97 (106) 98 Room Air 10/22/17 20:06 36.6 99 20 139/84 (102) 98 Room Air Physical Exam General Appearance: WD/WN, no apparent distress Eyes: normal inspection, sclerae normal ENT: hearing grossly normal Neck: trachea midline Respiratory/Chest: lungs clear, normal breath sounds, no respiratory distress, no accessory muscle use Cardiovascular: + systolic murmur, + irregularly irregular (With normal rate) Abdomen: normal bowel sounds, non tender, soft Extremities: + swelling (2-3+ pitting edema of the legs bilaterally, right distal anterior and lateral leg with erythema and warmth with tenderness to palpation, dressing in place with serous drainage over superficial wound, erythema about the same as yesterday) Neurologic/Psychiatric: alert, normal mood/affect Skin: warm/dry Laboratory Results Last 24 Hours Test 10/22/17 21:03 10/23/17 01:02 10/23/17 05:57 10/23/17 07:22 Bedside Glucose 128 mg/dl 87 mg/dl Vancomycin Level Trough 14.3 mcg/ml White Blood Count 8.07 K/uL Red Blood Count 2.99 M/uL Hemoglobin 9.7 g/dL Hematocrit 29.8 % Mean Corpuscular Volume 99.7 fL Mean Corpuscular Hemoglobin 32.4 pg Mean Corpuscular Hemoglobin Concent 32.6 g/dl Platelet Count 112 K/uL Mean Platelet Volume 9.5 fL Neutrophils (%) (Auto) 79.1 % Lymphocytes (%) (Auto) 6.2 % Monocytes (%) (Auto) 13.6 % Eosinophils (%) (Auto) 0.1 % Basophils (%) (Auto) 0.1 % Neutrophils # (Auto) 6.38 K/uL Lymphocytes # (Auto) 0.50 K/uL Monocytes # (Auto) 1.10 K/uL Eosinophils # (Auto) 0.01 K/uL Basophils # (Auto) 0.01 K/uL RDW Standard Deviation 60.7 fL RDW Coefficient of Variation 16.7 % Immature Granulocyte % (Auto) 0.9 % Immature Granulocyte # (Auto) 0.07 K/uL Nucleated RBC Absolute Count (auto) 0.02 K/uL Nucleated Red Blood Cells % 0.2 % Sodium Level 140 mmol/L Potassium Level 4.6 mmol/L Chloride Level 109 mmol/L Carbon Dioxide Level 23 mmol/L Anion Gap 8.0 mmol/L Blood Urea Nitrogen 45 mg/dl Creatinine 1.29 mg/dl Est Creatinine Clear Calc Drug Dose 31.0 ml/min Estimated GFR () 42.8 Estimated GFR (Non- 36.9 BUN/Creatinine Ratio 35.0 Random Glucose 89 mg/dl Calcium Level 9.6 mg/dl Magnesium Level 2.7 mg/dl Test 10/23/17 10:51 10/23/17 11:15 10/23/17 16:29 Digoxin Level 1.1 ng/ml Bedside Glucose 94 mg/dl 108 mg/dl Assessment and Plan This patient is an 86 yo female with h/o chronic lymphedema and cellulitis in the past, chronic diastolic CHF, paroxysmal atrial fibrillation on Xarelto, sick sinus syndrome now status post pacemaker in situ, severe aortic stenosis, iron deficiency anemia, obesity, COPD, GERD, polyarthritis, bullous pemphigoid, chronic prednisone therapy, presents with acute cellulitis of right lower leg - Cellulitis of right lower leg-in the setting of chronic lymphedema, continues to improve, leukocytosis resolved, remains afebrile On admission had leukocytosis, systemic symptoms of chills, poor appetite, lethargy-all resolved Received 5 days of IV Rocephin and Vancomycin and now will changer fixer to p.o. antibiotics with Keflex and doxycycline to complete 10 day course follow up on blood cultures drawn in the ED -no growth to date no signs of sepsis Continue with elevation of lower extremities - Acute kidney injury, dehydration-creatinine on admission 1.5, now down to 1.29 and stable after receiving IV fluids which have since been stopped -Secondary to poor oral intake for past few days, infection, plus she typically takes Lasix twice daily ATN vs pre-renal -Given 6 kg increase in body weight, her Lasix was restarted on 10/22 at a lower dose of 40 mg twice daily follow BMP in the morning, follow UOP -Paroxysmal atrial fibrillation now with RVR/SSS status post pacemaker-rates improved after adding digoxin, however was still with bursts into the 140s that are symptomatic with shortness of breath with minimal exertion. Metoprolol dose increased and rates improved somewhat, and now on an IV amiodarone gtt. Interrogation pacer reveals she went into A. fib on September 03 and has been in it ever since. tachycardia due to infection and dehydration on admission -Continue the increased dose of Toprol to 150 mg daily -Received Digoxin 0.25mg IV x 1 followed by 0.125mg IV x 2, now continues on 0.25 mg p.o. once daily-digoxin level 1.1 -Now on IV amiodarone drip as per cardiology recommendations to try to chemically convert her -Continue anticoagulation with Xarelto renally dosed -Continue on telemetry monitoring -Cardiology consultation appreciated Chronic diastolic CHF-stable -Restarted Lasix 40 mg twice daily - Elevated troponin, likely myocardial demand ischemia troponin mildly high at 0.183 on admission, repeat values were 0.19 and 0.15 likely due to increased cardiac demand with RVR no chest pain or pressure, no EKG changes - Hypokalemia: 3.4 on admission, given 40mEq PO in the ED, resolved -Follow BMP -Chronic macrocytic anemia: Hb stable at 9.7, continue to monitor - B12 and folate were checked given macrocytosis and were normal, iron studies checked and consistent with anemia of chronic disease Severe aortic stenosis-last echocardiogram 2013 showed severe -Avoid extremes of volume status, has not had syncope since pacemaker placement, no angina -Follows routinely with cardiology and has declined intervention in the past- no need for repeat echo at this point if does not desire intervention Hypotension-likely secondary to infection and dehydration in the setting of chronic prednisone use and adrenal insufficiency-however review of outpatient records from dermatology state this was discontinued in 01/2017? Patient reports she still does take 5 mg once daily. She did respond well to IV hydrocortisone for stress dose steroids. -Blood pressures improved with IV hydrocortisone-continue to taper down to 12.5 mg IV every 8h today - Obesity, BMI 44.3 -Needs weight loss Bullous pemphigoid-followed by dermatology-with large ecchymotic appearing lesions which are chronic and secondary to this condition. On chronic prednisone for this. -Is also supposed to be on niacinamide 500 mg p.o. 3 times daily, and doxycycline 50 mill grams p.o. twice daily-restarting doxy at 100 twice daily for infection as above and then can decrease to 50 after that 10 day courses up -Restart niacinamide upon discharge -Follow-up routinely with dermatology as scheduled next month DVT prophylaxis: on Xarelto 15mg daily for afib Plan: from [place], will return when medically stable-possibly in the next 1-2 days once atrial fibrillation rates are improved
[2017-10-23] MEDS: CEPHALEXIN MONOHYDRATE 500 MG CAP PO SCH (21:00)
[2017-10-23] MEDS: DOXYCYCLINE HYCLATE 100 MG CAP PO SCH (21:00)
[2017-10-23] MEDS: AMIODARONE / D5W 200 ML IV SCH (21:43)
[2017-10-24] MEDS: HYDROCORTISONE IV 12.5 MG in SYRINGE 0 ML IV SCH ×2 (02:52→11:46)
[2017-10-24 03:01] VITALS: BP 144/77; PULSE 66; TEMP 36.2; O2SAT 99
[2017-10-24 06:17] LABS: CALCIUM 8.8 mg/dl (8.5-10.1); CREATININE 1.18 mg/dl (0.60-1.20); POTASSIUM 4.1 mmol/L (3.5-5.1)
[2017-10-24 06:40] VITALS: BP 121/72; PULSE 71; TEMP 36.4; O2SAT 99
[2017-10-24] MEDS: FUROSEMIDE 40 MG TAB PO SCH ×2 (07:57→15:19)
[2017-10-24] MEDS: ASPIRIN 81 MG ECTAB PO SCH (07:57)
[2017-10-24] MEDS: CEPHALEXIN MONOHYDRATE 500 MG CAP PO SCH ×4 (07:57→21:04)
[2017-10-24] MEDS: DOXYCYCLINE HYCLATE 100 MG CAP PO SCH ×2 (07:57→21:04)
[2017-10-24] MEDS: METOPROLOL SUCC 50MG EXT REL TAB PO SCH (07:58)
[2017-10-24] MEDS: RIVAROXABAN TAB 15 MG TAB PO SCH (07:58)
[2017-10-24] MEDS: PYRIDOXINE HCL 50 MG TAB PO SCH (07:58)
[2017-10-24] MEDS: DOCUSATE SODIUM 100 MG CAP PO SCH ×2 (07:59→21:00)
--- NOTE | 2017-10-24 09:43 | Cardiology Follow-Up ---
Subjective Date of Service: Oct 24, 2017. Pt evaluation today including: conversation w/ patient, physical exam, lab review, review of studies, review of inpatient medication list History of Present Illness This is a very pleasant 86-year-old woman who has a history of aortic stenosis and periodic syncope. She was admitted to [facility] with an episode of syncope, on monitoring she was observed to have periods of bradycardia associated with sudden heart rate drop with heart rates in the low 40s and occasionally in the high 30s. 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 She therefore underwent dual-chamber pacemaker implantation on February 01, 2010. That device reached [facility] and was replaced on 08/05/2017 using the chronic leads. She has had cardiac catheterization to look at her coronary anatomy 02/02/2010 and she did not have evident coronary artery disease. She has refused aortic valve replacement although she has had severe aortic stenosis. 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 She was anticoagulated but developed a retroperitoneal bleed and anticoagulation was discontinued, and IVC filter was placed. Historically she has had rare episodes of atrial fibrillation that were brief ( less than 6 hours) therefore she was not initially on an anticoagulant. After her pacemaker replacement however she was seen in the office on September 17, 2017 and although she felt well she had been in atrial fibrillation since the end of August was fully. She was started on Xarelto 15 mg daily. We had planned on reevaluating her in 3 months to see whether she remained in atrial fibrillation. She is now admitted with cellulitis, however she was in atrial fibrillation and at times has rapid heart rates. Symptomatically she is doing well from the cardiovascular standpoint, she was short of breath but was unaware of palpitations and had no lightheadedness or dizziness. She seems unaware of the arrhythmia. I thought it would be reasonable to try to return her to sinus rhythm, however with her severe aortic stenosis anesthesia may be risky. I therefore started her on amiodarone yesterday. She is feeling better today, she is less short of breath and is not aware of her heart rhythm. Her heart rate is under better control but she remains in atrial fibrillation. She is not having side effects on the amiodarone. Social History Smoking Status: Never Smoker History of Alcohol Use: No Review of Systems Respiratory: + shortness of breath Cardiac: + see HPI, + edema, No chest pain, No palpitations Leg pain Medications Cardiovascular: Item Value Date Time Amiodarone HCL/ 200 ml @ 16.7 mls/hr 10/23/17 2200 Dextrose .[id number] 10/23/17 2143 Metoprolol 150 mg 10/23/17 0900 Succinate DAILY/PO 10/24/17 0758 (Toprol Xl Tab) Furosemide 40 mg 10/22/17 0900 (Lasix Tab) BID17/PO 10/24/17 0757 Digoxin 0.125 mg 10/21/17 1600 (Lanoxin Tab) DAILY@1600/PO 10/23/17 1606 Aspirin 81 mg 10/19/17 1130 (Ecotrin Tab) QAM/PO 10/24/17 0757 Rivaroxaban 15 mg 10/19/17 1130 (Xarelto Tab) QAM/PO 10/24/17 0758 Objective Vital Signs Past 12 Hours Date Time Temp Pulse Resp B/P (MAP) Pulse Ox O2 Delivery O2 Flow Rate FiO2 10/24/17 06:40 36.4 71 18 121/72 (88) 99 Room Air 10/24/17 03:01 36.2 66 16 144/77 (99) 99 Room Air 10/23/17 23:59 Room Air 10/23/17 23:29 36.3 74 16 123/61 (81) 97 Room Air 10/23/17 21:40 78 154/79 (104) Last Recorded Weight-Kilograms: 99.600 Physical Exam Constitutional: General Apperance: overweight Level of Distress: NAD Lungs: Respiratory effort: no dyspnea, good air movement Auscultation: breath sounds normal, no wheezing Cardiovascular: Heart Auscultation: no rubs, no gallops, III/ PALLAVI, irregular rate rhythm Peripheral Pulses: Bruits: none appreciated Extremities: no edema Data Laboratory Results: Last 24 Hours Test 10/23/17 10:51 10/23/17 11:15 10/23/17 16:29 10/23/17 20:40 Digoxin Level 1.1 ng/ml Bedside Glucose 94 mg/dl 108 mg/dl 121 mg/dl Test 10/24/17 05:29 10/24/17 07:31 Sodium Level 138 mmol/L Potassium Level 4.1 mmol/L Chloride Level 109 mmol/L Carbon Dioxide Level 22 mmol/L Anion Gap 7.0 mmol/L Blood Urea Nitrogen 49 mg/dl Creatinine 1.18 mg/dl Est Creatinine Clear Calc Drug Dose 34.2 ml/min Estimated GFR () 47.7 Estimated GFR (Non- 41.1 BUN/Creatinine Ratio 41.1 Random Glucose 89 mg/dl Calcium Level 8.8 mg/dl Magnesium Level 2.4 mg/dl Bedside Glucose 91 mg/dl Telemetry reviewed: Atrial fibrillation, rate much better controlled on IV amiodarone. Assessment and Plan 1. Atrial fibrillation: She has remained in atrial fibrillation since September 03, 2017 (confirmed by pacemaker monitoring), on amiodarone since yesterday she remains in atrial fibrillation although the rate is much better controlled. I remain reluctant to consider electrical cardioversion due to her anesthesia risk , although we could consider it in the future. Since her heart rate is well controlled she feels well I probably would not do that, we can transition her to oral amiodarone upon discharge. I would probably keep her on IV for now as it is more likely to cause conversion. Amiodarone will raise digoxin levels, so we will have to follow that but she is protected from bradycardia pacemaker. She should continue Xarelto at the current dose. 2. Aortic stenosis: She has severe aortic stenosis but has refused valve replacement in the past. I did not readdress that issue. 3. Dual-chamber pacemaker: Her pacemaker is functioning well, interrogation demonstrated continuous atrial fibrillation since September 03, 2017, overall heart rate is somewhat fast. Battery voltage excellent. Thank you for allowing me to participate in her care.
[2017-10-24] MEDS: AMIODARONE / D5W 200 ML IV SCH ×2 (10:04→22:07)
[2017-10-24] MEDS: ACETAMINOPHEN 325 MG TAB PO PRN (10:06)
[2017-10-24 10:47] VITALS: BP 170/89; PULSE 100; TEMP 37; O2SAT 93
[2017-10-24] MEDS ORDERED: FUROSEMIDE INJ 40 MG in SYRINGE 0 ML IV STA (12:26)
--- NOTE | 2017-10-24 12:45 | Hospitalist Progress Note ---
Hospitalist Progress Note Date of Service Oct 24, 2017. Subjective Pt evaluation today including: conversation w/ patient Patient feeling well except for pain in the right leg when her dressing was changed on the wound. Feels her legs are fairly swollen much more than baseline. Denies shortness of breath or chest pain or pressure. She is tolerating p.o. and moving her bowels well. Remains in atrial fibrillation on telemetry although the rates are much improved. Rates are now 60s-70s with occasional brief bursts to the 120s with movement. All Other Systems: Reviewed and Negative Objective Vital Signs Date Time Temp Pulse Resp B/P (MAP) Pulse Ox O2 Delivery O2 Flow Rate FiO2 10/24/17 06:40 36.4 71 18 121/72 (88) 99 Room Air 10/24/17 03:01 36.2 66 16 144/77 (99) 99 Room Air 10/23/17 23:59 Room Air 10/23/17 23:29 36.3 74 16 123/61 (81) 97 Room Air 10/23/17 21:40 78 154/79 (104) 10/23/17 20:00 Room Air 10/23/17 19:08 36.7 71 20 138/67 (90) 100 Room Air 10/23/17 17:00 73 157/65 (95) 98 Room Air 10/23/17 16:46 71 159/98 (118) 10/23/17 16:23 93 22 142/95 (111) 99 Room Air 10/23/17 16:07 91 151/85 (107) 10/23/17 16:06 91 10/23/17 16:02 36.6 95 20 140/96 (111) 97 Room Air Physical Exam General Appearance: WD/WN, no apparent distress, + obese Eyes: normal inspection, sclerae normal ENT: hearing grossly normal, pharynx normal Neck: trachea midline Respiratory/Chest: lungs clear, normal breath sounds, no respiratory distress, no accessory muscle use Cardiovascular: + systolic murmur (3/6 at the RUSB), + irregularly irregular ( With normal rate), + pertinent finding (3-4+ pitting edema in the legs bilaterally) Abdomen: normal bowel sounds, non tender, soft Extremities: + swelling (As above) Neurologic/Psychiatric: alert, normal mood/affect, oriented x 3 Skin: warm/dry, + rash (Multiple areas of purple discoloration in the extremities, back, thorax-related chronically to bullous pemphigoid), + pertinent finding (Right anterior distal leg with dark erythema that is somewhat blanching, warmth, dressing in place without drainage but was recently changed) Laboratory Results Last 24 Hours Test 10/23/17 16:29 10/23/17 20:40 10/24/17 05:29 10/24/17 07:31 Bedside Glucose 108 mg/dl 121 mg/dl 91 mg/dl Sodium Level 138 mmol/L Potassium Level 4.1 mmol/L Chloride Level 109 mmol/L Carbon Dioxide Level 22 mmol/L Anion Gap 7.0 mmol/L Blood Urea Nitrogen 49 mg/dl Creatinine 1.18 mg/dl Est Creatinine Clear Calc Drug Dose 34.2 ml/min Estimated GFR () 47.7 Estimated GFR (Non- 41.1 BUN/Creatinine Ratio 41.1 Random Glucose 89 mg/dl Calcium Level 8.8 mg/dl Magnesium Level 2.4 mg/dl Test 10/24/17 11:42 Bedside Glucose 98 mg/dl Assessment and Plan This patient is an 86 yo female with h/o chronic lymphedema and cellulitis in the past, chronic diastolic CHF, paroxysmal atrial fibrillation on Xarelto, sick sinus syndrome now status post pacemaker in situ, severe aortic stenosis, iron deficiency anemia, obesity, COPD, GERD, polyarthritis, bullous pemphigoid, chronic prednisone therapy, presents with acute cellulitis of right lower leg - Cellulitis of right lower leg-in the setting of chronic lymphedema, continues to improve, leukocytosis resolved, remains afebrile On admission had leukocytosis, systemic symptoms of chills, poor appetite, lethargy-all resolved Received 5 days of IV Rocephin and Vancomycin and have since converted over to p.o. antibiotics with Keflex and doxycycline to complete 10 day course-today is day #7 overall follow up on blood cultures drawn in the ED -no growth to date no signs of sepsis Continue with elevation of lower extremities - Acute kidney injury, dehydration-creatinine on admission 1.5, now down to 1.18 and stable after receiving IV fluids which have since been stopped -Secondary to poor oral intake for past few days, infection, plus she typically takes Lasix twice daily ATN vs pre-renal -Given 6 kg increase in body weight, her Lasix was restarted on 10/22 at a lower dose of 40 mg twice daily follow BMP in the morning, follow UOP -Paroxysmal atrial fibrillation now with RVR/SSS status post pacemaker-rates improved after adding digoxin, however was still having bursts into the 140s that are symptomatic with shortness of breath with minimal exertion. Metoprolol dose increased and rates improved somewhat, and now on an IV amiodarone gtt and rates are significantly improved. Interrogation pacer reveals she went into A. fib on September 03 and has been in it ever since. -tachycardia due to infection and dehydration on admission -Continue the increased dose of Toprol to 150 mg daily -Received Digoxin 0.25mg IV x 1 followed by 0.125mg IV x 2, now continues on 0.25 mg p.o. once daily-digoxin level 1.1 and will check again tomorrow as amiodarone can elevate the digoxin level -Continue on IV amiodarone drip as per cardiology recommendations to try to chemically convert her-will remain on this -Continue anticoagulation with Xarelto renally dosed -Continue on telemetry monitoring -Cardiology consultation appreciated Acute on chronic diastolic CHF-volume overloaded as above -Restarted Lasix 40 mg twice daily -We will give Lasix 40 mg IV 1 now - Elevated troponin, likely myocardial demand ischemia troponin mildly high at 0.183 on admission, repeat values were 0.19 and 0.15 likely due to increased cardiac demand with RVR no chest pain or pressure, no EKG changes - Hypokalemia: 3.4 on admission, given 40mEq PO in the ED, resolved -Follow BMP -Chronic macrocytic anemia: Hb stable at 9.7, continue to monitor - B12 and folate were checked given macrocytosis and were normal, iron studies checked and consistent with anemia of chronic disease Severe aortic stenosis-last echocardiogram 2013 showed severe -Avoid extremes of volume status, has not had syncope since pacemaker placement, no angina -Follows routinely with cardiology and has declined intervention in the past- no need for repeat echo at this point if does not desire intervention Hypotension-likely secondary to infection and dehydration in the setting of chronic prednisone use and adrenal insufficiency-however review of outpatient records from [facility] state this was discontinued in 01/2017? Patient reports she still does take 5 mg once daily. She did respond well to IV hydrocortisone for stress dose steroids. -Blood pressures improved with IV hydrocortisone-okay to discontinue today as has been 4 days - Obesity, BMI 44.3 -Needs weight loss Bullous pemphigoid-followed by dermatology-with large ecchymotic appearing lesions which are chronic and secondary to this condition. On chronic prednisone for this. -Is also supposed to be on niacinamide 500 mg p.o. 3 times daily, and doxycycline 50 mill grams p.o. twice daily-restarting doxy at 100 twice daily for infection as above and then can decrease to 50 after that 10 day courses up -Restart niacinamide upon discharge -Follow-up routinely with dermatology as scheduled next month DVT prophylaxis: on Xarelto 15mg daily for afib Plan: from [place] [facility] [place], will return when medically stable-possibly in the next 1-2 days-hoping for chemical conversion with A. fib
[2017-10-24] MEDS: DIGOXIN 0.125 MG TAB PO SCH (15:20)
[2017-10-24 15:32] VITALS: BP 117/65; PULSE 77; TEMP 36.6; O2SAT 97
[2017-10-24 19:32] VITALS: BP 115/63; PULSE 95; TEMP 36.4; O2SAT 94
[2017-10-24 23:59] VITALS: O2SAT 94
[2017-10-25] VITALS (8 sets, daily range): BP systolic 108–152; BP diastolic 41–112; PULSE 62–82; TEMP 36.4–36.8; O2SAT 2–100
[2017-10-25 05:49] LABS: BASO % 0.2 %; BASO ABS # 0.02 K/uL (0-0.2); EOS % 0.3 %; EOS ABS # 0.04 K/uL (0-0.5); HEMATOCRIT 27.5 % (37-47); IG# 0.46 K/uL (0.00-0.02); LYMPH % 8.9 %; LYMPH ABS # 1.02 K/uL (1.2-3.4); MEAN CELL VOLUME 98.2 fL (80-100); MEAN CORPUSCULAR HEMOGLOBIN 32.1 pg (25-34); MEAN CORPUSCULAR HGB CONC 32.7 g/dl (32-36); MEAN PLATELET VOLUME 9.3 fL (7.4-10.4); MONO % 17.7 %; MONO ABS # 2.03 K/uL (0.11-0.59); NEUT % 68.9 %; NEUT ABS # 7.88 K/uL (1.4-6.5); NUCLEATED RED BLOOD CELL ABS 0.14 K/uL (0-0); PLATELET COUNT 145 K/uL (130-400); RED CELL DISTRIBUTION WIDTH CV 17.2 % (11.5-14.5); RED CELL DISTRIBUTION WIDTH SD 61.3 fL (36.4-46.3); WHITE BLOOD COUNT 11.45 K/uL (4.8-10.8)
[2017-10-25 06:27] LABS: ALBUMIN 2.9 gm/dl (3.4-5.0); CALCIUM 8.7 mg/dl (8.5-10.1); CREATININE 1.28 mg/dl (0.60-1.20); POTASSIUM 3.5 mmol/L (3.5-5.1); TOTAL PROTEIN 5.8 gm/dl (6.4-8.2)
[2017-10-25] MEDS: RIVAROXABAN TAB 15 MG TAB PO SCH (08:01)
[2017-10-25] MEDS: FUROSEMIDE 40 MG TAB PO SCH ×2 (08:01→17:17)
[2017-10-25] MEDS: DOCUSATE SODIUM 100 MG CAP PO SCH ×2 (08:01→20:08)
[2017-10-25] MEDS: ASPIRIN 81 MG ECTAB PO SCH (08:01)
[2017-10-25] MEDS: METOPROLOL SUCC 50MG EXT REL TAB PO SCH (08:02)
[2017-10-25] MEDS: DOXYCYCLINE HYCLATE 100 MG CAP PO SCH ×2 (08:02→20:08)
[2017-10-25] MEDS: PYRIDOXINE HCL 50 MG TAB PO SCH (08:02)
[2017-10-25] MEDS: CEPHALEXIN MONOHYDRATE 500 MG CAP PO SCH ×4 (08:03→23:19)
[2017-10-25] MEDS: AMIODARONE / D5W 200 ML IV SCH (10:28)
[2017-10-25] MEDS: DIGOXIN 0.125 MG TAB PO SCH (17:16)
[2017-10-25] MEDS: AMIODARONE 200 MG TAB PO SCH (20:08)
--- NOTE | 2017-10-25 20:51 | Progress Note ---
Subjective Date of Service: Oct 25, 2017. Subjective Pt evaluation today including: conversation w/ patient, conversation w/ family (brother at bedside), physical exam, chart review, lab review, conversation w/ work and family life consultant (cardiology), review of inpatient medication list Pain: right leg, left great toe PO Intake: fair tele - a. fib with excellent rate control, rates <80/90 nearly at all times during the visit she offered no specific complaints reports left great toe pain for 1-2 days doesn't call any specific injury right leg is quite sensitive to touch she cannot tell me if she thinks the leg is better but brother thinks it is better than yesterday Problem List Medical Problems: (1) Anterior epistaxis Status: Acute (2) Fever Status: Acute Review of Systems Constitutional: No fever, No chills Respiratory: No shortness of breath Cardiac: No chest pain Abdomen: No pain, No diarrhea Objective Vital Signs Date Time Temp Pulse Resp B/P (MAP) Pulse Ox O2 Delivery O2 Flow Rate FiO2 10/25/17 19:07 36.5 63 16 122/59 (80) 100 Room Air 10/25/17 17:16 72 10/25/17 15:05 36.4 76 18 150/65 (93) 98 Room Air 10/25/17 11:24 36.8 82 20 152/74 (100) 94 Room Air 10/25/17 08:00 72 10/25/17 08:00 2 Room Air 10/25/17 06:50 36.4 68 16 126/64 (84) 2 Room Air 10/25/17 04:00 36.5 65 16 136/70 (92) 98 Room Air 10/25/17 00:04 36.8 62 18 125/112 (116) 100 Room Air 147/110 (122) 10/24/17 23:59 94 Room Air Physical Exam General Appearance: no apparent distress, + obese ENT: pharynx normal Neck: no JVD Respiratory/Chest: lungs clear, no respiratory distress, no accessory muscle use Cardiovascular: no gallop, + irregularly irregular Abdomen: normal bowel sounds, non tender, soft, no organomegaly, + hernia ( midline, periumbilical ) Extremities: + swelling (severe lymphedema b/l ) Neurologic/Psychiatric: alert, oriented x 3 Skin: + pertinent finding (left great toenail - avulsed, only attached at the base of the nail; mild amount of blood present; right wright - warm erythema/ brawny apperance covering much of the anterior surface of the wright; there is a small, 1-2cm, blood-filled blister on lateral aspect of the mid wright; there is scant amount of oozing that has occurred from this large blister; there is an area of macerated skin/superficial ulcer on the anterior aspect of the tibia; there is stasis changes scattered about both legs; there is purpuric/ecchymotic areas in scattered regions as well; there are no active bullae ) Laboratory Results Last 24 Hours Test 10/25/17 05:23 10/25/17 07:16 10/25/17 07:44 10/25/17 11:27 White Blood Count 11.45 K/uL Red Blood Count 2.80 M/uL Hemoglobin 9.0 g/dL Hematocrit 27.5 % Mean Corpuscular Volume 98.2 fL Mean Corpuscular Hemoglobin 32.1 pg Mean Corpuscular Hemoglobin Concent 32.7 g/dl Platelet Count 145 K/uL Mean Platelet Volume 9.3 fL Neutrophils (%) (Auto) 68.9 % Lymphocytes (%) (Auto) 8.9 % Monocytes (%) (Auto) 17.7 % Eosinophils (%) (Auto) 0.3 % Basophils (%) (Auto) 0.2 % Neutrophils # (Auto) 7.88 K/uL Lymphocytes # (Auto) 1.02 K/uL Monocytes # (Auto) 2.03 K/uL Eosinophils # (Auto) 0.04 K/uL Basophils # (Auto) 0.02 K/uL RDW Standard Deviation 61.3 fL RDW Coefficient of Variation 17.2 % Immature Granulocyte % (Auto) 4.0 % Immature Granulocyte # (Auto) 0.46 K/uL Nucleated RBC Absolute Count (auto) 0.14 K/uL Nucleated Red Blood Cells % 1.2 % Sodium Level 139 mmol/L Potassium Level 3.5 mmol/L Chloride Level 107 mmol/L Carbon Dioxide Level 26 mmol/L Anion Gap 6.0 mmol/L Blood Urea Nitrogen 58 mg/dl Creatinine 1.28 mg/dl Est Creatinine Clear Calc Drug Dose 31.3 ml/min Estimated GFR () 43.2 Estimated GFR (Non- 37.3 BUN/Creatinine Ratio 45.2 Random Glucose 80 mg/dl Calcium Level 8.7 mg/dl Magnesium Level 2.4 mg/dl Total Bilirubin 0.7 mg/dl Aspartate Amino Transf (AST/SGOT) 25 U/L Alanine Aminotransferase (ALT/SGPT) 32 U/L Alkaline Phosphatase 45 U/L Total Protein 5.8 gm/dl Albumin 2.9 gm/dl Globulin 2.9 gm/dl Albumin/Globulin Ratio 1.0 Digoxin Level 1.7 ng/ml Bedside Glucose 60 mg/dl 86 mg/dl 93 mg/dl Test 10/25/17 16:21 Bedside Glucose 85 mg/dl Assessment and Plan 86yo female - 1. RLE cellulitis - day #7 of IV/PO abx - currently on keflex/doxy. Would Rx with 1 additional week of these antibiotics. I reviewed the wound image downloaded from 10/22/17 - the blood-filled blister appears new in comparison to 10/22. Will ask wound care to reeval - the blister may need to be I/D. Continue local wound care in meantime. 2. atrial fibrillation - rates much improved s/p digoxin and amiodarone infusion. Stop latter, convert to PO amiodarone 200mg BID. This will need to be reduced in the outpatient setting. Digoxin level is top-normal today at 1.7 - change dosing to [id number]. Continue xarelto. Continue toprol xl. 3. avulsed left great toenail - spoke with Dr. Adamson's office and she will consult to remove the nail. 4. acute kidney injury - resolved. 5. sick sinus syndrome s/p pacemaker placement in the past - good function of pacer per cardiology. 6. acute on chronic diastolic CHF - BUN and Cr luis angel again overnight following 1 dose of IV lasix on 10/24. Likely euvolemic. Remaining edema of legs is her chronic lymphedema. No further IV lasix. 7. Elevated troponin at admission - likely myocardial demand ischemia. 8. chronic anemia - b12/folate/tsh all wnl. Follow. H/H stable. 9. severe aortic stenosis - last echocardiogram 2013 showed severe ; has declined intervention in the past. 10. morbid obesity with BMI 43 11. 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 Also takes niacinamide 500 mg TID. Resume at d/c. Received stress dose steroids earlier in this stay in the setting of her RLE cellulitis. 12. CKD stage 3 - creatinine relatively stable. brother updated dispo - [facility] once left great toe and RLE issues are stable/wrapped up Continued [facility] stay due to: multiple IV medications needed, other (podiatry consult) Discharge planning: long term facility
--- NOTE | 2017-10-25 20:54 | DIAGNOSTIC IMAGING REPORT ---
R TIBIA/FIBULA 2 VIEWS ROUTINE HISTORY: 86 years-old Female cellulitis acute pain and swelling of the right leg COMPARISON: None available TECHNIQUE: 2 views of the right tibia and fibula FINDINGS: Right knee total joint arthroplasty. The bones are moderately demineralized. Degenerative changes of the tibiotalar joint. No acute fracture or dislocation identified. Enthesophyte about the Achilles insertion site about the calcaneus. Peripheral arterial calcifications are noted throughout. At least moderate soft tissue swelling is noted about the knee and lower leg and ankle. No erosive changes to suggest osteomyelitis. No acute fracture or dislocation. IMPRESSION: 1. Soft tissue swelling without acute bony abnormality identified. 2. Demineralized appearance of the bones with right knee total joint arthroplasty. 3. Peripheral arterial calcifications. The above report was generated using voice recognition software. It may contain grammatical, syntax or spelling errors. Electronically signed by: Vargas Grady M.D. 10/25/2017 8:53 PM Dictated Date/Time: 10/25/2017 8:51 PM
[2017-10-25] MEDS: ACETAMINOPHEN 325 MG TAB PO PRN (23:19)
--- NOTE | 2017-10-25 23:51 | ORTHOPEDIC CONSULTATION ---
DATE OF CONSULTATION: 10/25/2017 HISTORY OF PRESENT ILLNESS: An 86-year-old female seen at bedside at the request of the hospitalist. The patient was admitted with increased pain, redness, and lethargic from [facility]. At the time of admission, her pain was graded as a 7/10. She has had a history of bilateral knee replacements and has had previous histories of cellulitis, although the patient notes that it is more severe at this time. Chart reviewed. Patient initially was placed on vancomycin and Levaquin for 5 days on the admission of 10/19/2017 to 10/24/2017 and then switched to p.o. medications. Once she was switched to the p.o. doxycycline and Keflex, white blood count continued to rise. At the time of admission, white blood count was 15, today's WBCs are . PAST SURGICAL HISTORY: Carpal tunnel, cholecystectomy, hemorrhoidectomy, tonsillectomy, pacemaker. PAST MEDICAL HISTORY: Epistasis, aortic stenosis, atrial dysrhythmia, AFib, CVA, hypertension, hyperkalemia, osteoporosis, polyarthritis . FAMILY HISTORY: Diabetes and colon cancer. SOCIAL HISTORY: The patient is single and lives alone. ALLERGIES: PENICILLIN, ADHESIVE, AND TETRAZINE. PHYSICAL EXAMINATION: VITAL SIGNS: Afebrile. LOWER EXTREMITIES: Severe pitting edema bilateral lower extremities, +6/6 pitting mid tibia down, digital pulses on the right leg on the dorsal aspect of the foot, posterior tibia are palpable 1/4 despite the pitting edema. DERM: Circumferential rash mid tibia to the ankle with purple discoloration. It is blanchable with increased warmth. There is a blood blister noted medially previous ulceration that was noted on admission, unsure if this is secondary from the swelling or from the leg. Heel padding, well bandaged at bedside. Severe edema noted. There is no purulence. There was no tracking of the ulceration. The only drainage is from the blood blister. There is no malodor. NEUROLOGIC: Epicritic sensation per Bodega-Marcos monofilament intact. MUSCULOSKELETAL: Pain, right lower extremity. IMPRESSION: 1. Chronic lymphedema. 2. Cellulitis, right leg. 3. Superficial ulceration, right leg. 4. Pain, right leg. 5. Bullous lesion, right leg. 6. Obesity. 7. Leukocytosis. 8. History of acute kidney injury. 9. Chronic iron deficiency anemia. TREATMENT: Blood blister drained, right leg at bedside during dressing change inadvertently. No active drainage from the ulceration. X-ray ordered. Would recommend returning to the vancomycin and Rocephin while the inpatient as overall leukocytosis improved. We will check x-ray, this patient has had a chronic history of cellulitis in the past. May consider compression dressing based on wound care's recommendation, possible Unna boot or Diop compression; however, would recommend following closely due to the increased leukocytosis with the stop of IV antibiotics. We will follow the patient while an inpatient.
[2017-10-26] VITALS (7 sets, daily range): BP systolic 113–140; BP diastolic 50–85; PULSE 60–86; TEMP 36.3–36.7; O2SAT 2–99
[2017-10-26 06:57] LABS: CALCIUM 8.3 mg/dl (8.5-10.1); CREATININE 1.13 mg/dl (0.60-1.20); POTASSIUM 3.4 mmol/L (3.5-5.1)
[2017-10-26] MEDS: METOPROLOL SUCC 50MG EXT REL TAB PO SCH (08:27)
[2017-10-26] MEDS: PYRIDOXINE HCL 50 MG TAB PO SCH (08:27)
[2017-10-26] MEDS: DOCUSATE SODIUM 100 MG CAP PO SCH ×2 (08:27→21:15)
[2017-10-26] MEDS: DOXYCYCLINE HYCLATE 100 MG CAP PO SCH ×2 (08:27→21:16)
[2017-10-26] MEDS: AMIODARONE 200 MG TAB PO SCH ×2 (08:28→21:16)
[2017-10-26] MEDS: ASPIRIN 81 MG ECTAB PO SCH (08:28)
[2017-10-26] MEDS: FUROSEMIDE 40 MG TAB PO SCH ×2 (08:28→17:56)
[2017-10-26] MEDS: RIVAROXABAN TAB 15 MG TAB PO SCH (08:29)
[2017-10-26] MEDS: ACETAMINOPHEN 325 MG TAB PO PRN ×3 (08:33→22:40)
[2017-10-26] MEDS ORDERED: POTASSIUM CHLORIDE 20 MEQ TABCR PO ONE (08:45)
[2017-10-26] MEDS: CEPHALEXIN MONOHYDRATE 500 MG CAP PO SCH ×4 (10:23→21:17)
--- NOTE | 2017-10-26 16:28 | DIAGNOSTIC IMAGING REPORT ---
RIGHT LOWER LEG CT CT DOSE: 368.73 mGy.cm HISTORY: right leg lymphedema, cellulitis, large blister lateral aspect TECHNIQUE: Multiaxial CT images of the right lower leg were performed and reformatted in the sagittal and coronal plane without the use of contrast. A dose lowering technique was utilized adhering to the principles of ALARA. COMPARISON: Right tibia/fibula 10/25/2017. FINDINGS: There is extensive subcutaneous edema seen throughout the visualized right lower leg from the knee through the ankle. This is also identified within the visualized portions of the left lower leg. No definite loculated fluid collections on this noncontrast study to suggest an abscess. Vascular calcifications are noted. There are multiple soft tissue calcification seen within the subcutaneous port of the distal lower leg and within the tendons of the distal lower leg. This is likely chronic. No significant deep soft tissue edema identified. Associated bilateral lower extremity skin thickening. Within the lateral aspect of the mid right lower leg there is a slightly hyperdense skin blister measuring 5.8 x 1.0 cm. No definite soft tissue gas identified within the right lower leg. The bones are osteopenic. No cortical destruction within the right tibia or fibula to suggest osteomyelitis. Mild smooth periosteal reaction within the distal right tibia and fibula is likely due to the long-standing edema/venous stasis. There is a right total knee arthroplasty. No fracture or dislocation within the right tibia or fibula. IMPRESSION: 1. Extensive subcutaneous edema within the right lower leg and visualized portions of the left lower leg. No definite loculated fluid collections on this noncontrast study to suggest an abscess. No significant deep soft tissue edema. 2. A slightly hyperdense skin blister at the lateral right lower leg. 3. No CT evidence for osteomyelitis. 4. No fracture or dislocation. 5. Additional findings as described above. Electronically signed by: Issa Mancuso M.D. 10/26/2017 4:26 PM Dictated Date/Time: 10/26/2017 4:20 PM
--- NOTE | 2017-10-26 19:06 | Progress Note ---
Subjective Date of Service: Oct 26, 2017. Subjective Pt evaluation today including: conversation w/ patient, conversation w/ family (brother at bedside), physical exam, chart review, lab review, review of studies (CT RLE), review of inpatient medication list Pain: b/l legs much worse on right PO Intake: fair Voiding: incontinence patient c/o poor sleep last pm tele stable with rate-controlled a. fib once again she reports left great toenail was not removed the blood blister on right lateral leg spontaneously ruptured last pm no new complaints Problem List Medical Problems: (1) Anterior epistaxis Status: Acute (2) Fever Status: Acute Review of Systems Constitutional: No fever, No chills Respiratory: No shortness of breath Cardiac: No chest pain Abdomen: No pain, No diarrhea Objective Vital Signs Date Time Temp Pulse Resp B/P (MAP) Pulse Ox O2 Delivery O2 Flow Rate FiO2 10/26/17 15:15 36.5 68 20 125/69 (87) 97 Room Air 10/26/17 11:22 36.4 67 20 132/72 (92) 99 Room Air 10/26/17 08:00 75 10/26/17 08:00 2 Room Air 10/26/17 06:56 36.4 62 18 113/60 (77) 99 Room Air 10/26/17 04:05 36.7 74 26 140/55 (83) 10/25/17 23:11 36.4 75 18 108/41 (63) 96 Room Air 10/25/17 20:00 Room Air 10/25/17 19:07 36.5 63 16 122/59 (80) 100 Room Air Physical Exam General Appearance: no apparent distress, + obese ENT: pharynx normal Neck: no JVD Respiratory/Chest: lungs clear, no respiratory distress, no accessory muscle use Cardiovascular: no gallop, + systolic murmur, + irregularly irregular Abdomen: normal bowel sounds, non tender, soft, no organomegaly, + hernia ( large, supraumbilical, reducible ) Extremities: + swelling (severe lymphedema b/l legs) Neurologic/Psychiatric: alert, oriented x 3 Skin: + pertinent finding (left great toenail - no change; right leg - blood- filled blister, right lateral mid wright - looks smaller today; there is large area of ecchymoses and hyperpigmentation in the same location as previous exams ; there is no warmth and no redness; there are tiny areas of ulceration over the mid tibia - also unchanged; scattered areas of ecchymoses about both knees, back of thighs, arms, etc ) Laboratory Results Last 24 Hours Test 10/25/17 20:54 10/26/17 05:33 10/26/17 07:18 10/26/17 11:21 Bedside Glucose 104 mg/dl 84 mg/dl 105 mg/dl Sodium Level 142 mmol/L Potassium Level 3.4 mmol/L Chloride Level 106 mmol/L Carbon Dioxide Level 28 mmol/L Anion Gap 8.0 mmol/L Blood Urea Nitrogen 54 mg/dl Creatinine 1.13 mg/dl Est Creatinine Clear Calc Drug Dose 35.6 ml/min Estimated GFR () 50.3 Estimated GFR (Non- 43.4 BUN/Creatinine Ratio 48.1 Random Glucose 70 mg/dl Calcium Level 8.3 mg/dl Test 10/26/17 16:29 Bedside Glucose 149 mg/dl Assessment and Plan 86yo female - 1. RLE cellulitis - day #8 of IV/PO abx - currently on keflex/doxy. Continue with 1 additional week of these antibiotics. CT leg obtained today to r/o osteomyelitis, nec fasc, abscess, etc - negative for such entities. Continue current care plan. Blood blister - RLE - will ask wound care to re-eval tomorrow; it has spontaneously ruptured overnight. 2. atrial fibrillation - rates much improved s/p digoxin and amiodarone 200mg BID. This will need to be reduced in the outpatient setting. Digoxin level was top-normal at 1.7 - change dosing to [id number]. Continue xarelto. Continue toprol xl. Recheck dig level in am. 3. avulsed left great toenail - spoke with Dr. Adamson's office and she will remove the nail. 4. acute kidney injury - resolved. 5. sick sinus syndrome s/p pacemaker placement in the past - good function of pacer per cardiology. 6. acute on chronic diastolic CHF - appears euvolemic (clear lungs, no JVD, etc ). Continue po lasix BID as previous. 7. Elevated troponin at admission - likely myocardial demand ischemia. 8. chronic anemia - b12/folate/tsh all wnl. Follow. H/H stable. 9. severe aortic stenosis - last echocardiogram 2013 showed severe ; has declined intervention in the past. 10. morbid obesity with BMI 44 11. 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 Also takes niacinamide 500 mg TID. Resume at d/c. Received stress dose steroids earlier in this stay in the setting of her RLE cellulitis. Continue oral prednisone daily. 12. CKD stage 3 - creatinine relatively stable. 13. hypokalemia - replace, repeat BMP am. brother updated at bedside dispo - [facility] once left great toe and RLE issues are stable Continued [facility] stay due to: other (podiatry consult) Discharge planning: longterm facility
[2017-10-26] MEDS: NYSTATIN SUSP 500,000 U/5 ML UDC PO SCH (21:17)
[2017-10-27 04:22] VITALS: BP 115/52; PULSE 88; TEMP 36.5; O2SAT 99
[2017-10-27 06:35] LABS: CALCIUM 8.8 mg/dl (8.5-10.1); CREATININE 1.11 mg/dl (0.60-1.20); POTASSIUM 3.6 mmol/L (3.5-5.1)
[2017-10-27 06:52] VITALS: BP 115/88; PULSE 70; TEMP 36.8; O2SAT 100
[2017-10-27] MEDS: NYSTATIN SUSP 500,000 U/5 ML UDC PO SCH ×4 (08:44→20:26)
[2017-10-27] MEDS: METOPROLOL SUCC 50MG EXT REL TAB PO SCH (08:45)
[2017-10-27] MEDS: DOCUSATE SODIUM 100 MG CAP PO SCH ×2 (08:45→20:27)
[2017-10-27] MEDS: CEPHALEXIN MONOHYDRATE 500 MG CAP PO SCH ×4 (08:45→20:26)
[2017-10-27] MEDS: DOXYCYCLINE HYCLATE 100 MG CAP PO SCH ×2 (08:45→20:27)
[2017-10-27] MEDS: AMIODARONE 200 MG TAB PO SCH ×2 (08:45→20:26)
[2017-10-27] MEDS: ASPIRIN 81 MG ECTAB PO SCH (08:46)
[2017-10-27] MEDS: FUROSEMIDE 40 MG TAB PO SCH ×2 (08:46→17:00)
[2017-10-27] MEDS: PYRIDOXINE HCL 50 MG TAB PO SCH (08:46)
[2017-10-27] MEDS: RIVAROXABAN TAB 15 MG TAB PO SCH (08:46)
--- NOTE | 2017-10-27 09:15 | PROGRESS NOTE ---
DATE: 10/27/2017 HISTORY OF PRESENT ILLNESS: The patient is seen at bedside for followup on cellulitis, right leg and a toenail issue on the left. The patient notes a history of toenail snagging, she is unsure when, had no previous problems; however, now the toenail was loose and painful on the left foot, on the big toe. Overall, she still notes pain to her right leg. PHYSICAL EXAMINATION: VITAL SIGNS: Afebrile, pulse 68, respirations 20, blood pressure 125/69, pulse ox 97 on room air. LOWER EXTREMITY EXAMINATION: No swelling noted to the left hallux. Digital pulses difficult to palpate due to the severe lymphedema, right greater than left; however, distant dorsalis pedis and posterior tibial pulse can be faintly palpated. Continued lymphedema and swelling noted, right greater than left. DERMATOLOGIC: The left hallux nail is loose and partially avulsed, mycotic, dystrophic, discolored with dry drainage around the nail bed. Right leg shows blanchable erythema. Multiple bullous lesions. This appears to be secondary to fluid rather than local cellulitis. Serosanguineous drainage is noted. No purulence, no malodor. IMPRESSION AND PLAN: 1. Cellulitis, right lower extremity. Continue antibiotics per hospitalist. A compression dressing applied with elevation to the right leg. A Diop compression applied with Webril and Laurent. 2. Toenail avulsion was performed of the left hallux. Local field block of 6 mL of 1% lidocaine was performed. The nail was avulsed from the nail bed using a freer elevator and taken from proximal to distal fashion. A dry sterile dressing consisting of 2 x 2 and Doris was applied. Continue dressing until drainage resolves and then may discontinue.
--- NOTE | 2017-10-27 09:22 | Cardiology Follow-Up ---
Subjective Date of Service: Oct 27, 2017. Pt evaluation today including: conversation w/ patient, physical exam, lab review, review of studies, review of inpatient medication list History of Present Illness This is a very pleasant 86-year-old woman who has a history of aortic stenosis and periodic syncope. She was admitted to [facility] with an episode of syncope, on monitoring she was observed to have periods of bradycardia associated with sudden heart rate drop with heart rates in the low 40s and occasionally in the high 30s. 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 She therefore underwent dual-chamber pacemaker implantation on February 01, 2010. That device reached [facility] and was replaced on 08/05/2017 using the chronic leads. She has had cardiac catheterization to look at her coronary anatomy 02/02/2010 and she did not have evident coronary artery disease. She has refused aortic valve replacement although she has had severe aortic stenosis. 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 She was anticoagulated but developed a retroperitoneal bleed and anticoagulation was discontinued, and IVC filter was placed. Historically she has had rare episodes of atrial fibrillation that were brief ( less than 6 hours) therefore she was not initially on an anticoagulant. After her pacemaker replacement however she was seen in the office on September 17, 2017 and although she felt well she had been in atrial fibrillation since the end of August was fully. She was started on Xarelto 15 mg daily. We had planned on reevaluating her in 3 months to see whether she remained in atrial fibrillation. She is now admitted with cellulitis, however she was in atrial fibrillation and at times has rapid heart rates. Symptomatically she is doing well from the cardiovascular standpoint, she was short of breath but was unaware of palpitations and had no lightheadedness or dizziness. She seems unaware of the arrhythmia. I thought it would be reasonable to try to return her to sinus rhythm, however with her severe aortic stenosis anesthesia may be risky. I therefore started her on amiodarone IV, now transitioned to oral. Today she feels that she is having side effects on amiodarone, she is describing what she calls heartburn although she has had that before by her description. I am not sure why she thinks it is the amiodarone but she feels that it is. She is not aware of her heart rhythm. Social History Smoking Status: Never Smoker History of Alcohol Use: No Review of Systems Respiratory: No shortness of breath Cardiac: No chest pain Leg pain Medications Cardiovascular: Item Value Date Time Digoxin 0.125 mg 10/27/17 1600 (Lanoxin Tab) Q48H/PO Amiodarone HCl 200 mg 10/25/17 2100 (Cordarone Tab) BID/PO 10/27/17 0845 Metoprolol 150 mg 10/23/17 0900 Succinate DAILY/PO 10/27/17 0845 (Toprol Xl Tab) Furosemide 40 mg 10/22/17 0900 (Lasix Tab) BID17/PO 10/27/17 0846 Aspirin 81 mg 10/19/17 1130 (Ecotrin Tab) QAM/PO 10/27/17 0846 Objective Vital Signs Past 12 Hours Date Time Temp Pulse Resp B/P (MAP) Pulse Ox O2 Delivery O2 Flow Rate FiO2 10/27/17 06:52 36.8 70 16 115/88 (97) 100 Room Air 10/27/17 04:22 36.5 88 18 115/52 (73) 99 Room Air 10/26/17 23:22 36.4 67 20 129/50 (76) 96 Room Air Last Recorded Weight-Kilograms: 98.000 Physical Exam Constitutional: General Apperance: overweight Level of Distress: NAD Lungs: Respiratory effort: no dyspnea, good air movement Auscultation: breath sounds normal, no wheezing Cardiovascular: Heart Auscultation: no rubs, no gallops, III/ PALLAVI, irregular rate rhythm Peripheral Pulses: Bruits: none appreciated Extremities: no edema Data Laboratory Results: Last 24 Hours Test 10/26/17 11:21 10/26/17 16:29 10/26/17 20:22 10/27/17 05:43 Bedside Glucose 105 mg/dl 149 mg/dl 105 mg/dl Sodium Level 142 mmol/L Potassium Level 3.6 mmol/L Chloride Level 105 mmol/L Carbon Dioxide Level 29 mmol/L Anion Gap 8.0 mmol/L Blood Urea Nitrogen 47 mg/dl Creatinine 1.11 mg/dl Est Creatinine Clear Calc Drug Dose 36.0 ml/min Estimated GFR () 51.3 Estimated GFR (Non- 44.3 BUN/Creatinine Ratio 42.4 Random Glucose 79 mg/dl Calcium Level 8.8 mg/dl Digoxin Level 0.9 ng/ml Telemetry reviewed: Atrial fibrillation with a well-controlled heart rate Assessment and Plan 1. Atrial fibrillation: She has remained in atrial fibrillation since September 03, 2017 (confirmed by pacemaker monitoring), on amiodarone since October 23, 2017, initially IV but now on oral. She remains in atrial fibrillation although the rate is now well controlled. I remain reluctant to consider electrical cardioversion due to her anesthesia risk, although we could consider it in the future. Since her heart rate is well controlled she feels well I probably would not do that. She should continue Xarelto at the current dose. 2. Aortic stenosis: She has severe aortic stenosis but has refused valve replacement in the past. I did not readdress that issue. 3. Dual-chamber pacemaker: Her pacemaker is functioning well, interrogation demonstrated continuous atrial fibrillation since September 03, 2017, overall heart rate is somewhat fast. Battery voltage excellent. Thank you for allowing me to participate in her care.
[2017-10-27] MEDS: ACETAMINOPHEN 325 MG TAB PO PRN ×2 (11:49→21:17)
[2017-10-27 12:58] VITALS: BP 110/86; PULSE 74; TEMP 36.8; O2SAT 98
[2017-10-27 15:17] VITALS: BP 132/75; PULSE 68; TEMP 36.8; O2SAT 97
[2017-10-27] MEDS: DIGOXIN 0.125 MG TAB PO SCH (16:58)
[2017-10-27 18:50] VITALS: BP 97/58; PULSE 75; TEMP 36.5; O2SAT 98
--- NOTE | 2017-10-27 23:38 | Progress Note ---
Subjective Date of Service: Oct 27, 2017. Subjective Pt evaluation today including: conversation w/ patient, physical exam, chart review, lab review, review of studies (CT RLE), conversation w/ recruiting operations consultant ( orthopedics, wound care nurse, social work), review of inpatient medication list Pain: left great toe, right leg PO Intake: normal Voiding: no voiding problems tele with rate controlled a. fib pt had left great toenail removed yesterday by Dr. Simon reports mild pain in that toe RLE pain is about the same no new complaints continues to sleep poorly at night and blames the insomnia "on those antibiotics " Problem List Medical Problems: (1) Anterior epistaxis Status: Acute (2) Fever Status: Acute Review of Systems Constitutional: No fever, No chills Respiratory: No cough, No shortness of breath Cardiac: + edema, No chest pain Abdomen: No pain, No nausea, No vomiting, No diarrhea Objective Vital Signs Date Time Temp Pulse Resp B/P (MAP) Pulse Ox O2 Delivery O2 Flow Rate FiO2 10/27/17 18:50 36.5 75 16 97/58 (71) 98 Room Air 10/27/17 16:58 84 10/27/17 15:17 36.8 68 20 132/75 (94) 97 Room Air 10/27/17 12:58 36.8 74 20 110/86 (94) 98 Room Air 10/27/17 08:00 Room Air 10/27/17 06:52 36.8 70 16 115/88 (97) 100 Room Air 10/27/17 04:22 36.5 88 18 115/52 (73) 99 Room Air 10/26/17 23:22 36.4 67 20 129/50 (76) 96 Room Air Physical Exam General Appearance: no apparent distress, + obese ENT: pharynx normal Neck: no JVD Respiratory/Chest: lungs clear, no respiratory distress, no accessory muscle use Cardiovascular: no gallop, + systolic murmur (2/6 RUSB), + irregularly irregular Abdomen: normal bowel sounds, non tender, soft, no organomegaly Extremities: + swelling (lymphedema b/l unchanged) Neurologic/Psychiatric: alert Skin: + pertinent finding (left great toe - toenail removed, nailbed clean with dried blood and some scant oozing; RLE - right mid lateral blood blister/ hematoma SMALLER in size today; there is dark, hyperpigmented skin on the wright - unchanged; stasis changes unchanged; no cellulitis (or minimal at most); scattered, tiny blisters over surface of wright; areas of borderline necrotic/ ecchymotic skin as well) Laboratory Results Last 24 Hours Test 10/27/17 05:43 Sodium Level 142 mmol/L Potassium Level 3.6 mmol/L Chloride Level 105 mmol/L Carbon Dioxide Level 29 mmol/L Anion Gap 8.0 mmol/L Blood Urea Nitrogen 47 mg/dl Creatinine 1.11 mg/dl Est Creatinine Clear Calc Drug Dose 36.0 ml/min Estimated GFR () 51.3 Estimated GFR (Non- 44.3 BUN/Creatinine Ratio 42.4 Random Glucose 79 mg/dl Calcium Level 8.8 mg/dl Digoxin Level 0.9 ng/ml Assessment and Plan 86yo female - 1. RLE cellulitis - day #9 of IV/PO abx - MUCH IMRPOVED/RESOLVING. Currently on keflex/doxy. Continue with 1 additional week of these antibiotics. CT leg without osteomyelitis, nec fasc, abscess, etc. Continue current care plan. 2. RLE blood blister/hematoma - likely traumatic in nature. This spontaneously ruptured on Friday evening and has gotten smaller since then. Wound care nurse evaluated the region today; recommended orthopedic consult to ensure no debridement needed. Ortho consult placed with [facility]. Cont local wound care. 3. atrial fibrillation - rates much improved s/p digoxin and amiodarone 200mg BID. This will need to be reduced in the outpatient setting. Digoxin level was top-normal at 1.7 - changed dosing to [id number] and dig level today much more acceptable. Continue xarelto. Continue toprol xl. 4. avulsed left great toenail - s/p removal of nail by Dr. Adamson. Continue local wound care. 5. acute kidney injury - resolved. 6. sick sinus syndrome s/p pacemaker placement in the past - good function of pacer per cardiology. 7. acute on chronic diastolic CHF - continues to appear euvolemic (clear lungs , no JVD, etc). Continue po lasix BID as previous. 8. Elevated troponin at admission - likely myocardial demand ischemia. 9. chronic anemia - b12/folate/tsh all wnl. Follow. H/H stable. 10. severe aortic stenosis - last echocardiogram 2013 showed severe ; has declined intervention in the past. 11. morbid obesity with BMI 43. 12. 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 Also takes niacinamide 500 mg TID. Resume at d/c. Received stress dose steroids earlier in this stay in the setting of her RLE cellulitis. Continue oral prednisone daily. 13. CKD stage 3 - creatinine relatively stable. 14. hypokalemia - resolved. dispo - [facility] hopefully d/c back to SNF tomorrow after official ortho consult is completed and if no surgical intervention is needed Continued [facility] stay due to: other (RLE wound care, ortho consult) Discharge planning: long-term facility
[2017-10-27 23:42] VITALS: BP 147/63; PULSE 76; TEMP 36.7; O2SAT 97
[2017-10-28] VITALS (13 sets, daily range): BP systolic 91–163; BP diastolic 52–93; PULSE 62–77; TEMP 36.4–36.8; O2SAT 94–100
[2017-10-28 06:23] LABS: HEMATOCRIT 23.4 % (37-47); HEMOGLOBIN 7.6 g/dL (12.0-16.0); MEAN CELL VOLUME 99.2 fL (80-100); MEAN CORPUSCULAR HEMOGLOBIN 32.2 pg (25-34); MEAN CORPUSCULAR HGB CONC 32.5 g/dl (32-36); MEAN PLATELET VOLUME 9.2 fL (7.4-10.4); NUCLEATED RED BLOOD CELL ABS 0.04 K/uL (0-0); PLATELET COUNT 178 K/uL (130-400); RED CELL DISTRIBUTION WIDTH CV 19.1 % (11.5-14.5); WHITE BLOOD COUNT 10.29 K/uL (4.8-10.8)
[2017-10-28 06:56] LABS: CALCIUM 8.5 mg/dl (8.5-10.1); CREATININE 1.09 mg/dl (0.60-1.20); POTASSIUM 3.5 mmol/L (3.5-5.1)
--- NOTE | 2017-10-28 07:45 | PROGRESS NOTE ---
DATE: 10/27/2017 SUBJECTIVE: The patient is seen at bedside. Notes left hallux. No problems. Right leg pain continues. Chart reviewed. PHYSICAL EXAMINATION: VITAL SIGNS: Stable and afebrile. EXTREMITIES: Lower extremity vascular, digital pulses are faintly palpable bilaterally. Pitting chronic lymphedema still present, mildly improved to the right with compressive dressing. DERMATOLOGIC: Bullous lesions have resolved to the right leg. The erythema is blanchable and appears more secondary to swelling rather than local infective process. Temperature is within normal limits to the right leg. Left hallux nail bed shows mild serosanguineous drainage still present. No erythema. Absence of the nail. NEUROLOGIC: Epicritic sensation grossly intact. MUSCULOSKELETAL: Pain, right leg. IMPRESSION: 1. Cellulitis, right lower extremity. 2. Chronic lymphedema, right leg. 3. Status post total nail avulsion, left first with history of left contusion. 4. History of blood blisters, right leg, resolved. 5. Morbid obesity. TREATMENT: 1. A dry sterile dressing was changed to the left hallux, may discontinue and continue with sock, reapplied today at patient's request. 2. Continue Keflex and doxycycline per hospitalist recommendation; currently scheduled for an additional week. Diop compressive dressing reapplied to the right lower extremity. Overall, Diop compression overnight with elevation did improve the lymphedema and no blood blisters are present on today's exam. Diop reapplied. I instructed the patient and recommended a compressive stocking and/or dressing be applied as an outpatient. Reconsulted as needed.
[2017-10-28 08:01] LABS: HEMATOCRIT 23.9 % (37-47); HEMOGLOBIN 7.7 g/dL (12.0-16.0)
[2017-10-28] MEDS: METOPROLOL SUCC 50MG EXT REL TAB PO SCH (09:00)
[2017-10-28] MEDS: NYSTATIN SUSP 500,000 U/5 ML UDC PO SCH ×4 (10:34→22:09)
[2017-10-28] MEDS: CEPHALEXIN MONOHYDRATE 500 MG CAP PO SCH ×4 (10:34→22:09)
[2017-10-28] MEDS: DOXYCYCLINE HYCLATE 100 MG CAP PO SCH ×2 (10:34→22:10)
[2017-10-28] MEDS: DOCUSATE SODIUM 100 MG CAP PO SCH ×2 (10:35→22:11)
[2017-10-28] MEDS: RIVAROXABAN TAB 15 MG TAB PO SCH (10:35)
[2017-10-28] MEDS: ASPIRIN 81 MG ECTAB PO SCH (10:35)
[2017-10-28] MEDS: PYRIDOXINE HCL 50 MG TAB PO SCH (10:35)
[2017-10-28] MEDS: FUROSEMIDE 40 MG TAB PO SCH ×2 (10:35→17:17)
[2017-10-28] MEDS: AMIODARONE 200 MG TAB PO SCH ×2 (10:35→22:11)
[2017-10-28] MEDS ORDERED: PANTOprazole INJ 40 MG in SYRINGE 0 ML IV ONE (12:15)
[2017-10-28 12:28] LABS: HEMATOCRIT 24.2 % (37-47); HEMOGLOBIN 7.9 g/dL (12.0-16.0)
[2017-10-28] MEDS: SUCRALFATE 1 GM/10 ML UDC PO SCH ×3 (12:45→22:09)
--- NOTE | 2017-10-28 16:17 | Orthopedic Consultation ---
Orthopedic Consultation Date of Consultation: Oct 28, 2017. Attending Physician: Steve Edgar MD Reason for Consultation: Right lower leg blood blister History of Present Illness Ms. Brown is an 86-year-old female who is currently admitted for treatment of right leg cellulitis with progressive improvement. She developed a right leg blood blister, but she is unsure of when it first appeared. Upon chart review, it looks like Dr. Simon from podiatry was initially consulted for the same issue. During Dr. Simon's initial consultation on 10/25, she notes that the blood blister was inadvertently drained during her examination and dressing change. The patient has been followed by wound care with daily dressing changes. A new consultation was placed today to ensure that the blood blister did not require further debridement. Past Medical/Surgical History Medical Problems: (1) Anterior epistaxis Status: Acute (2) Fever Status: Acute Family History No pertinent family history Social History Smoking Status: Never Smoker Drug Use: none Marital Status: single Housing Status: [facility] Occupation Status: retired Allergies Coded Allergies: Penicillins (Verified Allergy, Mild, HIVES, 10/19/17) Adhesives (Verified Allergy, Unknown, LOCAL SKIN IRRITATION, 10/19/17) Terazosin (Verified Allergy, Unknown, PT UNSURE, 10/19/17) Home Medications Scheduled Albuterol Sulf (Proventil 0.083% 2.5MG/3ML), 2.5 MG INH QID Aspirin (Aspirin Chewable), 81 MG PO QAM Cholecalciferol (Vitamin D), 1.5 TAB PO DAILY Cyclosporine (Ophth) (Restasis), 1 DROP OPB BID Docusate Sodium (Colace), 100 MG PO BID Doxycycline Hyclate (Doxycycline Hyclate), 50 MG PO BID Ferrous Sulfate (Ferrous Sulfate), 325 MG PO BID Furosemide (Lasix), 60 MG PO BID Lactobacillus (Probiotic), 1 CAP PO BID Metoprolol Succinate (Toprol Xl), 100 MG PO DAILY Multiple Vitamins W/ Minerals (Prosight), 1 TAB PO BID Niacinamide (Niacinamide), 500 MG PO TID Omeprazole (Prilosec), 20 MG PO QAM Potassium Chloride (K-Tabs), 20 MEQ PO QAM Prednisone (Prednisone), 5 MG PO QAM Pyridoxine (Vitamin B6), 100 MG PO QAM Rivaroxaban (Xarelto), 15 MG PO QAM Scheduled PRN Acetaminophen (Tylenol), 650 MG PO Q4H PRN for PRN Bisacodyl (Dulcolax), 1 SUPP GA Q3D PRN for Constipation Guaifenesin (Ra Tussin), 10 ML PO Q6 PRN for Cough Magnesium Hydroxide (Milk Of Magnesia), 30 ML PO DAILY PRN for Constipation Sodium Phosphate/Biphosphate (Fleet Enema), 1 EA GA Q4DAYS PRN for Constipation Triamcinolone Acet (Aristocort 0.1%), 1 APPLN TOP Q12 PRN for BULLOUS PEMPHLAGOID LESIONS Current Inpatient Medications Current Inpatient Medications Medications (Trade) Dose Ordered Sig/Carrol Route Start Time Stop Time Status Last Admin Dose Admin Acetaminophen (Tylenol Tab) 650 mg Q4H PRN PO 10/19/17 09:00 11/18/17 08:59 10/27/17 21:17 650 MG Ondansetron HCl (Zofran Inj) 4 mg Q6H PRN IV 10/19/17 09:00 11/18/17 08:59 Polyethylene (Miralax Powder Packet) 17 gm DAILY PRN PO 10/19/17 09:00 11/18/17 08:59 Aspirin (Ecotrin Tab) 81 mg QAM PO 10/19/17 11:30 11/18/17 11:29 Future Hold 10/28/17 10:35 81 MG Docusate Sodium (coLACE CAP) 100 mg BID PO 10/19/17 11:30 11/18/17 11:29 10/28/17 10:35 100 MG Prednisone (PredniSONE TAB) 5 mg QAM PO 10/19/17 11:30 11/18/17 11:29 10/28/17 10:34 5 MG Pyridoxine HCl (Vitamin B-6 Tab) 100 mg QAM PO 10/19/17 11:30 11/18/17 11:29 10/28/17 10:35 100 MG Rivaroxaban (Xarelto Tab) 15 mg QAM PO 10/19/17 11:30 11/18/17 11:29 Future Hold 10/28/17 10:35 15 MG Metoprolol Tartrate (Lopressor Iv) 5 mg Q6 PRN IV 10/19/17 14:30 11/18/17 14:29 10/19/17 17:05 5 MG Sodium Chloride (Mercer Nasal [place]) 1 sprays PRN PRN NA 10/21/17 21:30 11/20/17 21:29 10/21/17 21:58 1 SPRAYS Furosemide (Lasix Tab) 40 mg BID17 PO 10/22/17 09:00 11/21/17 08:59 10/28/17 10:35 40 MG Albuterol Sulfate (Ventolin 0.083% 2.5MG/3ML Neb) 2.5 mg Q2H PRN INH 10/22/17 07:45 11/21/17 07:44 Metoprolol Succinate (Toprol Xl Tab) 150 mg DAILY PO 10/23/17 09:00 11/18/17 11:29 10/27/17 08:45 150 MG Doxycycline Hyclate (Vibramycin Cap) 100 mg BID PO 10/23/17 21:00 11/02/17 20:59 10/28/17 10:34 100 MG Cephalexin Monohydrate (Keflex Cap) 500 mg QID PO 10/23/17 21:00 10/30/17 20:59 10/28/17 12:45 500 MG Amiodarone HCl (Cordarone Tab) 200 mg BID PO 10/25/17 21:00 11/24/17 20:59 10/28/17 10:35 200 MG Digoxin (Lanoxin Tab) 0.125 mg Q48H PO 10/27/17 16:00 11/20/17 15:59 10/27/17 16:58 0.125 MG Nystatin (Mycostatin Susp) 5 ml QID PO 10/26/17 21:00 11/05/17 20:59 10/28/17 12:45 5 ML Pantoprazole Sodium 40 mg/ Syringe 10 ml @ 5 mls/min DAILY@ IV 10/28/17 21:00 11/27/17 20:59 Sucralfate (Carafate Susp) 1 gm QID PO 10/28/17 13:00 11/27/17 12:59 10/28/17 12:45 1 GM Physical Exam Date Time Temp Pulse Resp B/P (MAP) Pulse Ox O2 Delivery O2 Flow Rate FiO2 10/28/17 15:01 74 24 100 10/28/17 14:46 36.5 64 16 163/93 95 10/28/17 14:31 36.5 71 18 162/81 95 10/28/17 14:30 74 18 98 10/28/17 14:19 36.7 68 16 120/65 94 10/28/17 12:20 36.6 69 18 91/56 (68) 95 Room Air 10/28/17 10:37 91/56 (68) 10/28/17 08:00 Room Air 10/28/17 07:02 36.5 72 18 108/53 (71) 99 Room Air 10/28/17 04:30 36.7 77 18 93/52 (66) 96 Room Air 10/27/17 23:42 36.7 76 16 147/63 (91) 97 Room Air 10/27/17 20:00 Room Air 10/27/17 18:50 36.5 75 16 97/58 (71) 98 Room Air 10/27/17 16:58 84 Right leg: She has significant diffuse pitting edema in both legs, but evidence of treated cellulitis on her right lower leg. She has diffuse ecchymosis in this area, with some areas coalescing into what appear to be very small blood blisters. There is 1 large blood blister that has obviously ruptured, but still has coagulated blood within the blister below the epidermis. No evidence of purulence or infection of this blood blister. No obvious purulence or focal fluid collections anywhere else around her cellulitic lower leg. She has evidence of well-healed surgical incisions over both knees, consistent with her history of bilateral total knee arthroplasty. There is no evidence of infection of either one of these incisions, and her area of cellulitis is below her right total knee incision. Her foot is warm well perfused. Motor and sensory function is intact distally. Laboratory Results Last 24 Hours Test 10/28/17 05:43 10/28/17 07:46 10/28/17 11:55 10/28/17 12:08 White Blood Count 10.29 K/uL Red Blood Count 2.36 M/uL Hemoglobin 7.6 g/dL 7.7 g/dL 7.9 g/dL Hematocrit 23.4 % 23.9 % 24.2 % Mean Corpuscular Volume 99.2 fL Mean Corpuscular Hemoglobin 32.2 pg Mean Corpuscular Hemoglobin Concent 32.5 g/dl RDW Standard Deviation 67.0 fL RDW Coefficient of Variation 19.1 % Platelet Count 178 K/uL Mean Platelet Volume 9.2 fL Nucleated RBC Absolute Count (auto) 0.04 K/uL Nucleated Red Blood Cells % 0.4 % Sodium Level 142 mmol/L Potassium Level 3.5 mmol/L Chloride Level 106 mmol/L Carbon Dioxide Level 29 mmol/L Anion Gap 7.0 mmol/L Blood Urea Nitrogen 47 mg/dl Creatinine 1.09 mg/dl Est Creatinine Clear Calc Drug Dose 36.6 ml/min Estimated GFR () 52.5 Estimated GFR (Non- 45.3 BUN/Creatinine Ratio 43.4 Random Glucose 75 mg/dl Calcium Level 8.5 mg/dl Stool Occult Blood POSITIVE Radiology: Right lower leg x-ray and CT scan were reviewed. They show a right total knee arthroplasty in place without evidence of hardware failure or loosening. On the CT scan, there is extensive soft tissue edema, consistent with cellulitis. No focal fluid collections are seen. No evidence of osteomyelitis. Assessment & Plan (1) Left leg cellulitis Assessment & Plan: She has a blood blister on her right lower leg in the setting of cellulitis. Her cellulitis by chart review and physical exam appears to be progressively improving. Her blood blister ruptured during initial podiatry consultation 3 days ago. There is no evidence of purulence or infection around this blood blister. No evidence of abscess or osteomyelitis anywhere on her right lower leg. I do not see any indication for acute orthopedic surgery intervention at this point. I would recommend continued wound care for her blistering associated with the cellulitis. Orthopedics will sign off, please call with questions. I am covering Orthopedic Surgery call for Dr. Vasquez, who is unavailable. Geovanny Rivera MD
[2017-10-28 17:29] LABS: HEMATOCRIT 26.8 % (37-47); HEMOGLOBIN 8.9 g/dL (12.0-16.0)
--- NOTE | 2017-10-28 18:23 | Progress Note ---
Subjective Date of Service: Oct 28, 2017. Subjective Pt evaluation today including: conversation w/ patient, physical exam, chart review, lab review, conversation w/ consultant teacher (GI, ortho), review of inpatient medication list Pain: RLE - mild PO Intake: poor appetite tele with rate-controlled a fib staff report dark stool this AM and stool was fecal occult blood positive she says "I just have no appetite" BPs low this am no other new issues records reviewed - EGD 2015 with gastritis/esophagitis Problem List Medical Problems: (1) Anterior epistaxis Status: Acute (2) Fever Status: Acute Review of Systems Constitutional: No fever Respiratory: No cough, No shortness of breath Cardiac: No chest pain Abdomen: No pain, No nausea, No vomiting Objective Vital Signs Date Time Temp Pulse Resp B/P (MAP) Pulse Ox O2 Delivery O2 Flow Rate FiO2 10/28/17 10:37 91/56 (68) 10/28/17 08:00 Room Air 10/28/17 07:02 36.5 72 18 108/53 (71) 99 Room Air 10/28/17 04:30 36.7 77 18 93/52 (66) 96 Room Air 10/27/17 23:42 36.7 76 16 147/63 (91) 97 Room Air 10/27/17 20:00 Room Air 10/27/17 18:50 36.5 75 16 97/58 (71) 98 Room Air 10/27/17 16:58 84 10/27/17 15:17 36.8 68 20 132/75 (94) 97 Room Air 10/27/17 12:58 36.8 74 20 110/86 (94) 98 Room Air Physical Exam General Appearance: no apparent distress, + obese ENT: pharynx normal Neck: no JVD Respiratory/Chest: lungs clear, no respiratory distress, no accessory muscle use Cardiovascular: no gallop, + systolic murmur (2/6 RUSB ), + irregularly irregular Abdomen: normal bowel sounds, non tender, soft, no organomegaly Extremities: + pedal edema, + swelling (severe lymphedema of both legs; b/l TKR scars) Neurologic/Psychiatric: alert, oriented x 3 Skin: + pertinent finding (dressings intact RLE and left great toe) Laboratory Results Last 24 Hours Test 10/28/17 05:43 10/28/17 07:46 10/28/17 11:55 White Blood Count 10.29 K/uL Red Blood Count 2.36 M/uL Hemoglobin 7.6 g/dL 7.7 g/dL Hematocrit 23.4 % 23.9 % Mean Corpuscular Volume 99.2 fL Mean Corpuscular Hemoglobin 32.2 pg Mean Corpuscular Hemoglobin Concent 32.5 g/dl RDW Standard Deviation 67.0 fL RDW Coefficient of Variation 19.1 % Platelet Count 178 K/uL Mean Platelet Volume 9.2 fL Nucleated RBC Absolute Count (auto) 0.04 K/uL Nucleated Red Blood Cells % 0.4 % Sodium Level 142 mmol/L Potassium Level 3.5 mmol/L Chloride Level 106 mmol/L Carbon Dioxide Level 29 mmol/L Anion Gap 7.0 mmol/L Blood Urea Nitrogen 47 mg/dl Creatinine 1.09 mg/dl Est Creatinine Clear Calc Drug Dose 36.6 ml/min Estimated GFR () 52.5 Estimated GFR (Non- 45.3 BUN/Creatinine Ratio 43.4 Random Glucose 75 mg/dl Calcium Level 8.5 mg/dl Assessment and Plan 86yo female - 1. RLE cellulitis - day #10 of abx - resolved. Currently on keflex/doxy. Continue with 4 more days of abx then stop. CT leg without osteomyelitis, nec fasc, abscess, etc. Continue current care plan. 2. RLE blood blister/hematoma - likely traumatic in nature. This spontaneously ruptured on Friday evening and has gotten smaller since then. Wound care nurse evaluated the region & recommended orthopedic consult to ensure no debridement needed. Ortho consult appreciated; no surgical intervention necessary. Cont local wound care. 3. atrial fibrillation - rates much improved s/p digoxin and amiodarone 200mg BID. This will need to be reduced in the outpatient setting. Holding xarelto due to GI bleeding and holding toprol xl due to same/ hypotension. 4. avulsed left great toenail - s/p removal of nail by Dr. Adamson. Continue local wound care. 5. acute kidney injury - resolved. 6. sick sinus syndrome s/p pacemaker placement in the past - good function of pacer per cardiology. 7. acute on chronic diastolic CHF - continues to appear euvolemic (clear lungs , no JVD, etc). 8. Elevated troponin at admission - likely myocardial demand ischemia. 9. chronic anemia - b12/folate/tsh all wnl. Follow. H/H stable. 10. severe aortic stenosis - last echocardiogram 2013 showed severe ; has declined intervention in the past. 11. morbid obesity with BMI 43. 12. 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 Also takes niacinamide 500 mg TID. Resume at d/c. Received stress dose steroids earlier in this stay in the setting of her RLE cellulitis. Continue oral prednisone daily. 13. CKD stage 3 - creatinine relatively stable. 14. hypokalemia - resolved. 15. acute blood loss anemia likely due to upper GI bleeding - NPO, Tx 1 unit PRBCs, serial H/H's, IV PPI twice daily. Hold asa and xarelto. GI consult for the am. dispo - [facility] Continued [facility] stay due to: other (RLE wound care, ortho consult, suspected GI bleeding) Discharge planning: correction facility
[2017-10-28] MEDS: PANTOprazole INJ 40 MG in SYRINGE 0 ML IV SCH (22:09)
[2017-10-29] VITALS (11 sets, daily range): BP systolic 97–129; BP diastolic 49–86; PULSE 65–73; TEMP 36.4–37.2; O2SAT 94–99
[2017-10-29] MEDS: ACETAMINOPHEN 325 MG TAB PO PRN (05:19)
[2017-10-29 05:22] LABS: HEMOGLOBIN 8.3 g/dL (12.0-16.0); MEAN CORPUSCULAR HEMOGLOBIN 32.5 pg (25-34); MEAN CORPUSCULAR HGB CONC 33.2 g/dl (32-36); NUCLEATED RED BLOOD CELL ABS 0.03 K/uL (0-0); PLATELET COUNT 184 K/uL (130-400); RED CELL DISTRIBUTION WIDTH CV 18.8 % (11.5-14.5); RED CELL DISTRIBUTION WIDTH SD 64.6 fL (36.4-46.3); WHITE BLOOD COUNT 11.86 K/uL (4.8-10.8)
[2017-10-29 05:47] LABS: CALCIUM 8.5 mg/dl (8.5-10.1); CREATININE 1.06 mg/dl (0.60-1.20); POTASSIUM 3.6 mmol/L (3.5-5.1)
[2017-10-29] MEDS: PANTOprazole INJ 40 MG in SYRINGE 0 ML IV SCH ×2 (08:56→20:50)
[2017-10-29] MEDS: CEPHALEXIN MONOHYDRATE 500 MG CAP PO SCH ×4 (09:00→20:50)
[2017-10-29] MEDS: METOPROLOL SUCC 50MG EXT REL TAB PO SCH (09:00)
[2017-10-29] MEDS: FUROSEMIDE 40 MG TAB PO SCH ×2 (09:00→18:08)
[2017-10-29] MEDS: NYSTATIN SUSP 500,000 U/5 ML UDC PO SCH ×4 (09:00→20:51)
[2017-10-29] MEDS: PYRIDOXINE HCL 50 MG TAB PO SCH (09:00)
[2017-10-29] MEDS: DOXYCYCLINE HYCLATE 100 MG CAP PO SCH (09:00)
--- NOTE | 2017-10-29 09:44 | Gastrointestinal Consultation ---
Gastrointestinal Consultation Date of Consultation: Oct 29, 2017 Attending Physician: Dr. Edgar Consulting Physician: Emily King PA-C Reason for Consultation: melena, anemia History of Present Illness Patient is a 86 year old female with multiple medical comorbidities noted below who is presently hospitalized with cellulitis. GI has been consulted for further evaluation of melena. The patient has been hospitalized for 10 days for management of multiple medical issues, but was noted to have melena yesterday. The stool was reportedly FOBT +. Her hemoglobin and hematocrit at present are 8.3 and 25.0 respectively. She is receiving a blood transfusion at the time of my visit. She denies abdominal pain or heartburn at present. She does have a history of esophagitis. She takes Omeprazole 20 mg daily for reflux. Her last EGD was in 2015 and indicated esophagitis and gastritis, which at that time was attributed to NSAID use. She takes Xarelto for atrial fibrillation. This is presently on hold. The patient denies a family history of GI malignancy. She requests that I speak with her family members prior to her making the decision regarding possible endoscopy. Past Medical/Surgical History Medical Problems: (1) Anterior epistaxis Status: Acute (2) Fever Status: Acute Past Medical History: Medical Problems: (1) Anterior epistaxis (2) Aortic stenosis (3) Atrial dysrhythmia (4) Atrial fibrillation with RVR (5) cellulitis (6) Cellulitis (7) CVA (cerebral vascular accident) (8) Deep vein thrombosis (9) DVT prophylaxis (10) Hypertension (11) Hypokalemia (12) LE edema (13) Left leg cellulitis (14) Lower extremity pain, left (15) Lower extremity pain, left (16) Osteoporosis (17) Polyarthritis (18) Presence of IVC filter (19) Status post bilateral knee replacements (20) Syncope Past Surgical History: Surgical Problems: (1) S/P carpal tunnel release (2) S/P cholecystectomy (3) S/P hemorrhoidectomy (4) S/P tonsillectomy (5) S/P colonoscopy (6) S/P EGD Family History No pertinent family history Social History Smoking Status: Never Smoker Drug Use: none Marital Status: single Housing Status: longterm Occupation Status: retired Allergies Coded Allergies: Penicillins (Verified Allergy, Mild, HIVES, 10/19/17) Adhesives (Verified Allergy, Unknown, LOCAL SKIN IRRITATION, 10/19/17) Terazosin (Verified Allergy, Unknown, PT UNSURE, 10/19/17) Current Medications Home Meds and Scripts Medications Dose Route/Sig Max Daily Dose Days Date Category Dose Instructions Proventil 0.083% 2.5MG/3ML (Albuterol Sulf) 2.5 Mg/3 Ml Nebu 2.5 Mg INH QID 10/19/17 Reported Xarelto (Rivaroxaban) 15 Mg Tab 15 Mg PO QAM 10/19/17 Reported Vitamin D (Cholecalciferol) 2,000 Unit Tab 1.5 Tab PO DAILY 10/19/17 Reported Aristocort 0.1% (Triamcinolone Acet) 90 Appln/30 Gm Cr 1 Appln TOP Q12 PRN 10/19/17 Reported Restasis (Cyclosporine (Ophth)) 0.05 % Emu 1 Drop OPB BID 10/19/17 Reported Prosight (Multiple Vitamins W/ Minerals) 1 Tab Tab 1 Tab PO BID 10/19/17 Reported Probiotic (Lactobacillus) 1 Cap Cap 1 Cap PO BID 10/19/17 Reported Prednisone 5 Mg Tab 5 Mg PO QAM 10/19/17 Reported Niacinamide 100 Mg Tab 500 Mg PO TID 10/19/17 Reported Lasix (Furosemide) 20 Mg Tab 60 Mg PO BID 10/19/17 Reported Ra Tussin (Guaifenesin) 100 Mg/5 Ml Syp 10 Ml PO Q6 PRN 10/19/17 Reported Doxycycline Hyclate 50 Mg Tab 50 Mg PO BID 10/19/17 Reported HOLD FROM 10/11/17-10/20/17. START DATE 10/21/17 Colace (Docusate Sodium) 100 Mg Cap 100 Mg PO BID 10/19/17 Reported Prilosec (Omeprazole) 20 Mg Capcr 20 Mg PO QAM 06/18/16 Reported Vitamin B6 (Pyridoxine HCl) 100 Mg Tab 100 Mg PO QAM 06/18/16 Reported K-Tabs (Potassium Chloride) 10 Meq Tab 20 Meq PO QAM 06/18/16 Reported TWO 10 MEQ TABLETS EVERY DAY SHIFT Fleet Enema (Sodium Phosphate/Biphosphate) Marybeth 1 Ea AL Q4DAYS PRN 05/08/16 Reported Dulcolax (Bisacodyl) 10 Mg Sup 1 Supp AL Q3D PRN 05/08/16 Reported Milk Of Magnesia (Magnesium Hydroxide) 30 Ml Susp 30 Ml PO DAILY PRN 05/08/16 Reported Aspirin Chewable (Aspirin) 81 Mg Chew 81 Mg PO QAM 08/23/15 Reported Tylenol (Acetaminophen) 325 Mg Tab 650 Mg PO Q4H PRN 10/25/13 Reported NOT TO EXCEED 3000 MG APAP IN 24 HOURS. Ferrous Sulfate 325 Mg Tab 325 Mg PO BID 10/25/13 Reported TAKE ONE TABLET WITH BREAKFAST AND ONE TABLET WITH EVENING MEAL EVERY DAY. Toprol Xl (Metoprolol Succinate) 100 Mg Tab 100 Mg PO DAILY 03/28/13 Reported IN THE AFTERNOON Review of Systems Constitutional: No fever, No chills Eyes: No problem reported Respiratory: No cough, No shortness of breath, No dyspnea on exertion Abdomen: + GI bleeding, No pain, No nausea, No vomiting, No diarrhea Musculoskeletal: + joint pain Neuro: No problem reported Psych: No problem reported Heme: + abnormal bleeding/bruising Endo: No problem reported Skin: + problem reported (bruising) Physical Exam Date Time Temp Pulse Resp B/P (MAP) Pulse Ox O2 Delivery O2 Flow Rate FiO2 10/29/17 09:10 36.8 73 14 114/58 97 10/29/17 07:55 36.4 67 16 97/49 (65) 97 Room Air 10/29/17 04:00 36.7 70 20 104/53 (70) 95 Room Air 10/28/17 23:59 36.4 63 20 157/73 (101) 100 Room Air 10/28/17 20:00 Room Air 10/28/17 19:03 36.4 62 16 100/66 (77) 100 Room Air 10/28/17 16:03 36.8 77 18 127/71 98 10/28/17 16:00 Room Air 10/28/17 15:36 36.6 67 18 125/65 96 10/28/17 15:01 74 24 100 10/28/17 14:46 36.5 64 16 163/93 95 10/28/17 14:31 36.5 71 18 162/81 95 10/28/17 14:30 74 18 98 10/28/17 14:19 36.7 68 16 120/65 94 10/28/17 12:20 36.6 69 18 91/56 (68) 95 Room Air 10/28/17 10:37 91/56 (68) General Appearance: WD/WN, no apparent distress Eyes: normal inspection, PERRL ENT: + pertinent finding Respiratory/Chest: lungs clear, normal breath sounds Cardiovascular: + systolic murmur Abdomen: normal bowel sounds, non tender, soft Extremities: non-tender Neurologic/Psych: alert Skin: + pertinent finding (bruising ) Laboratory Results Last 24 Hours Test 10/28/17 11:55 10/28/17 12:08 10/28/17 17:14 10/28/17 22:52 Stool Occult Blood POSITIVE Hemoglobin 7.9 g/dL 8.9 g/dL 8.7 g/dL Hematocrit 24.2 % 26.8 % Test 10/29/17 05:04 White Blood Count 11.86 K/uL Red Blood Count 2.55 M/uL Hemoglobin 8.3 g/dL Hematocrit 25.0 % Mean Corpuscular Volume 98.0 fL Mean Corpuscular Hemoglobin 32.5 pg Mean Corpuscular Hemoglobin Concent 33.2 g/dl RDW Standard Deviation 64.6 fL RDW Coefficient of Variation 18.8 % Platelet Count 184 K/uL Mean Platelet Volume 9.0 fL Nucleated RBC Absolute Count (auto) 0.03 K/uL Nucleated Red Blood Cells % 0.3 % Sodium Level 141 mmol/L Potassium Level 3.6 mmol/L Chloride Level 106 mmol/L Carbon Dioxide Level 30 mmol/L Anion Gap 5.0 mmol/L Blood Urea Nitrogen 43 mg/dl Creatinine 1.06 mg/dl Est Creatinine Clear Calc Drug Dose 37.7 ml/min Estimated GFR () 54.3 Estimated GFR (Non- 46.8 BUN/Creatinine Ratio 40.5 Random Glucose 77 mg/dl Calcium Level 8.5 mg/dl Impression Patient is a 86 year old female with melena. Her H/H is 8.3/25.0 and she is presently receiving a unit of blood. She takes Omeprazole daily at home (20 mg) daily. She is typically on Xarelto for Afib. She reports NSAID use as well. Plan 1) Protonix 40 mg IV BID. 2) Keep NPO for EGD today. 3) Continue to monitor H/H. 4) Further recommendations pending results of EGD. Thank you for allowing us to participate in the care of this patient. If you should have any further questions or concerns, do not hesitate to contact us. Agree with DAYLIN Jones as above Abd: Soft, NT, ND, +BS Continue current therapy Proceed with EGD today
[2017-10-29] MEDS: DOCUSATE SODIUM 100 MG CAP PO SCH ×2 (09:56→18:08)
[2017-10-29] MEDS: AMIODARONE 200 MG TAB PO SCH ×2 (09:56→18:08)
[2017-10-29] MEDS: SUCRALFATE 1 GM/10 ML UDC PO SCH ×5 (09:56→20:50)
[2017-10-29 14:03] LABS: HEMATOCRIT 27.8 % (37-47); HEMOGLOBIN 9.1 g/dL (12.0-16.0)
[2017-10-29] MEDS ORDERED: PROPOFOL IV EMULSION 10 MG/ML 20 ML VIAL ONE (15:29)
[2017-10-29] MEDS ORDERED: LIDOCAINE HCL 2% 2 ML VIAL (20MG/ML) ONE (15:29)
[2017-10-29] MEDS: DIGOXIN 0.125 MG TAB PO SCH (16:00)
--- NOTE | 2017-10-29 16:30 | Anesthesiology Progress Note ---
Anesthesia Post Op Note Date & Time Oct 29, 2017 at 16:30 Vital Signs Pain Intensity: 0.0 Vital Signs Past 12 Hours Date Time Temp Pulse Resp B/P (MAP) Pulse Ox O2 Delivery O2 Flow Rate FiO2 10/29/17 16:28 67 18 125/66 (85) 99 Room Air 10/29/17 16:14 37 80 18 104/46 (65) 98 Room Air 10/29/17 14:54 37 65 18 139/54 (82) 98 Room Air 10/29/17 11:54 36.7 72 95 118/76 (90) 10/29/17 11:00 36.4 70 18 113/50 96 10/29/17 10:00 36.7 65 16 107/53 95 10/29/17 09:45 36.7 65 14 107/51 97 10/29/17 09:10 36.8 73 14 114/58 97 10/29/17 08:30 Room Air 10/29/17 07:55 36.4 67 16 97/49 (65) 97 Room Air Notes Mental Status: alert / awake / arousable, participated in evaluation Pt Amnestic to Procedure: Yes Nausea / Vomiting: adequately controlled Pain: adequately controlled Airway Patency, RR, SpO2: stable & adequate BP & HR: stable & adequate Hydration State: stable & adequate Anesthetic Complications: no major complications apparent
[2017-10-29] MEDS: METHYLPREDNISOLONE IV 40 MG in SYRINGE 0 ML IV SCH (18:07)
--- NOTE | 2017-10-29 23:17 | Progress Note ---
Subjective Date of Service: Oct 29, 2017. 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 no other new complaints Problem List Medical Problems: (1) Anterior epistaxis Status: Acute (2) Fever Status: Acute Review of Systems Constitutional: No fever Respiratory: No shortness of breath Cardiac: No chest pain, No orthopnea Abdomen: No pain, No nausea, No vomiting Objective Vital Signs Date Time Temp Pulse Resp B/P (MAP) Pulse Ox O2 Delivery O2 Flow Rate FiO2 10/29/17 20:00 98 Room Air 10/29/17 19:15 37.2 73 18 115/79 (91) 99 Room Air 10/29/17 16:51 36.5 68 17 129/57 (81) 98 Room Air 10/29/17 16:43 70 20 101/64 (76) 99 Room Air 10/29/17 16:28 67 18 125/66 (85) 99 Room Air 10/29/17 16:14 37 80 18 104/46 (65) 98 Room Air 10/29/17 14:54 37 65 18 139/54 (82) 98 Room Air 10/29/17 11:54 36.7 72 95 118/76 (90) 10/29/17 11:00 36.4 70 18 113/50 96 10/29/17 10:00 36.7 65 16 107/53 95 10/29/17 09:45 36.7 65 14 107/51 97 10/29/17 09:10 36.8 73 14 114/58 97 10/29/17 08:30 Room Air 10/29/17 07:55 36.4 67 16 97/49 (65) 97 Room Air 10/29/17 04:00 36.7 70 20 104/53 (70) 95 Room Air 10/28/17 23:59 36.4 63 20 157/73 (101) 100 Room Air Physical Exam General Appearance: no apparent distress, + obese ENT: pharynx normal Neck: no JVD Respiratory/Chest: lungs clear, no respiratory distress, no accessory muscle use Cardiovascular: no gallop, + systolic murmur (2/6 RUSB), + irregularly irregular Abdomen: normal bowel sounds, non tender, soft, no organomegaly, + hernia ( upper abdomen - reducible ) Extremities: + pedal edema, + swelling (severe lymphedema b/l ) Neurologic/Psychiatric: alert, oriented x 3 Skin: + pertinent finding (dressings intact RLE - these were not removed today) Laboratory Results Last 24 Hours Test 10/29/17 05:04 10/29/17 13:56 White Blood Count 11.86 K/uL Red Blood Count 2.55 M/uL Hemoglobin 8.3 g/dL 9.1 g/dL Hematocrit 25.0 % 27.8 % Mean Corpuscular Volume 98.0 fL Mean Corpuscular Hemoglobin 32.5 pg Mean Corpuscular Hemoglobin Concent 33.2 g/dl RDW Standard Deviation 64.6 fL RDW Coefficient of Variation 18.8 % Platelet Count 184 K/uL Mean Platelet Volume 9.0 fL Nucleated RBC Absolute Count (auto) 0.03 K/uL Nucleated Red Blood Cells % 0.3 % Sodium Level 141 mmol/L Potassium Level 3.6 mmol/L Chloride Level 106 mmol/L Carbon Dioxide Level 30 mmol/L Anion Gap 5.0 mmol/L Blood Urea Nitrogen 43 mg/dl Creatinine 1.06 mg/dl Est Creatinine Clear Calc Drug Dose 37.7 ml/min Estimated GFR () 54.3 Estimated GFR (Non- 46.8 BUN/Creatinine Ratio 40.5 Random Glucose 77 mg/dl Calcium Level 8.5 mg/dl Assessment and Plan 86yo female - 1. RLE cellulitis - day #11 of abx - resolved. Currently on keflex/doxy. CT leg without osteomyelitis, nec fasc, abscess, etc. In light of esophagitis on EGD will d/c doxy. Cont with keflex only for now. 2. RLE blood blister/hematoma - likely traumatic in nature. This spontaneously ruptured on Friday evening and has gotten smaller since then. Wound care nurse evaluated the region & recommended orthopedic consult to ensure no debridement needed. Ortho consult appreciated; no surgical intervention necessary. Cont local wound care. 3. atrial fibrillation - rates controlled with digoxin and amiodarone 200mg BID. The latter will need to be reduced in the outpatient setting. Holding xarelto due to GI bleeding. 4. avulsed left great toenail - s/p removal of nail by Dr. Adamson. 5. acute kidney injury - resolved. 6. sick sinus syndrome s/p pacemaker placement in the past - good function of pacer per cardiology. 7. acute on chronic diastolic CHF - continues to appear euvolemic. Remains on lasix 40 BID. 8. Elevated troponin at admission - likely myocardial demand ischemia. 9. acute/chronic anemia - acute component 2nd to acute blood loss anemia. H/H dropped again overnight suggesting ongoing bleeding; 1 additional unit of PRBCs given today. Repeat H/H after PRBCs was stable. 10. severe aortic stenosis - last echocardiogram 2013 showed severe ; has declined intervention in the past. 11. morbid obesity with BMI 42. 12. 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 Also takes niacinamide 500 mg TID. Resume at d/c. Now with esophageal involvement. Literature suggests 0.75mg/kg/day of prednisone for such. Restart solumedrol 40mg IV q12h. Will reach out to [facility] tomorrow for additional recommendations. 13. CKD stage 3 - creatinine relatively stable. 14. hypokalemia - resolved. 15. 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 carafate qid. hold asa hold anticoagulation appreciate GI consult and assistance with EGD 16. FEN - allow clears; BMP am dispo - [facility] Continued [facility] stay due to: other (RLE wound care, ortho consult, suspected GI bleeding) Discharge planning: [facility]dc facility
[2017-10-30] VITALS (7 sets, daily range): BP systolic 121–142; BP diastolic 49–83; PULSE 66–83; TEMP 36.6–37.1; O2SAT 92–98
[2017-10-30] MEDS: METHYLPREDNISOLONE IV 40 MG in SYRINGE 0 ML IV SCH ×2 (05:21→16:37)
[2017-10-30 05:46] LABS: HEMATOCRIT 30.2 % (37-47); HEMOGLOBIN 9.9 g/dL (12.0-16.0); MEAN CELL VOLUME 96.5 fL (80-100); MEAN CORPUSCULAR HEMOGLOBIN 31.6 pg (25-34); MEAN CORPUSCULAR HGB CONC 32.8 g/dl (32-36); MEAN PLATELET VOLUME 9.2 fL (7.4-10.4); PLATELET COUNT 203 K/uL (130-400); RED CELL DISTRIBUTION WIDTH CV 19.8 % (11.5-14.5); RED CELL DISTRIBUTION WIDTH SD 66.8 fL (36.4-46.3); WHITE BLOOD COUNT 10.79 K/uL (4.8-10.8)
[2017-10-30 06:12] LABS: CALCIUM 8.8 mg/dl (8.5-10.1); CREATININE 0.95 mg/dl (0.60-1.20); POTASSIUM 3.4 mmol/L (3.5-5.1)
[2017-10-30] MEDS ORDERED: POTASSIUM CHLORIDE 10 MEQ TABCR PO ONE (07:30)
[2017-10-30] MEDS: PYRIDOXINE HCL 50 MG TAB PO SCH (09:12)
[2017-10-30] MEDS: FUROSEMIDE 40 MG TAB PO SCH ×2 (09:13→16:38)
[2017-10-30] MEDS: CEPHALEXIN MONOHYDRATE 500 MG CAP PO SCH ×3 (09:13→16:38)
[2017-10-30] MEDS: PANTOprazole INJ 40 MG in SYRINGE 0 ML IV SCH (09:13)
[2017-10-30] MEDS: DOCUSATE SODIUM 100 MG CAP PO SCH ×2 (09:13→21:09)
[2017-10-30] MEDS: NYSTATIN SUSP 500,000 U/5 ML UDC PO SCH ×4 (09:14→21:08)
[2017-10-30] MEDS: SUCRALFATE 1 GM/10 ML UDC PO SCH ×4 (09:14→21:07)
[2017-10-30] MEDS: METOPROLOL SUCC 50MG EXT REL TAB PO SCH (09:14)
[2017-10-30] MEDS: AMIODARONE 200 MG TAB PO SCH (09:15)
--- NOTE | 2017-10-30 09:27 | Gastroenterology Progress Note ---
Progress Note Date of Service: Oct 30, 2017 Subjective Pt evaluation today including: conversation w/ patient, physical exam Patient is an 86 yo female who underwent an EGD for melena & anemia yesterday. She was noted to have bullous pemphigoid lesions in the esophagus as well as esophagitis. She is now on IV steroid therapy per the primary team. Today she denies any issues with swallowing. She tolerated her breakfast well. She denies abdominal pain or further melena. Her H/H is 9.9/30.2. She is on IV Protonix 40 mg BID as well as Carafate 1 gm four times daily. Review of Systems Constitutional: No chills Eyes: No problem reported ENT: No problem reported Respiratory: No cough, No shortness of breath Cardiac: No chest pain Abdomen: No pain, No nausea, No vomiting, No GI bleeding Musculoskeletal: No joint pain Psych: No problem reported Skin: No problem reported Medications Current Inpatient Medications Medications (Trade) Dose Ordered Sig/Carrol Route Start Time Stop Time Status Last Admin Dose Admin Acetaminophen (Tylenol Tab) 650 mg Q4H PRN PO 10/19/17 09:00 11/18/17 08:59 10/29/17 05:19 650 MG Ondansetron HCl (Zofran Inj) 4 mg Q6H PRN IV 10/19/17 09:00 11/18/17 08:59 Polyethylene (Miralax Powder Packet) 17 gm DAILY PRN PO 10/19/17 09:00 11/18/17 08:59 Aspirin (Ecotrin Tab) 81 mg QAM PO 10/19/17 11:30 11/18/17 11:29 Future Hold 10/28/17 10:35 81 MG Docusate Sodium (coLACE CAP) 100 mg BID PO 10/19/17 11:30 11/18/17 11:29 10/28/17 22:11 100 MG Prednisone (PredniSONE TAB) 5 mg QAM PO 10/19/17 11:30 11/18/17 11:29 Future Hold 10/28/17 10:34 5 MG Pyridoxine HCl (Vitamin B-6 Tab) 100 mg QAM PO 10/19/17 11:30 11/18/17 11:29 10/28/17 10:35 100 MG Rivaroxaban (Xarelto Tab) 15 mg QAM PO 10/19/17 11:30 11/18/17 11:29 Future Hold 10/28/17 10:35 15 MG Metoprolol Tartrate (Lopressor Iv) 5 mg Q6 PRN IV 10/19/17 14:30 11/18/17 14:29 10/19/17 17:05 5 MG Sodium Chloride ([place] Nasal [place]) 1 sprays PRN PRN NA 10/21/17 21:30 11/20/17 21:29 10/21/17 21:58 1 SPRAYS Furosemide (Lasix Tab) 40 mg BID17 PO 10/22/17 09:00 11/21/17 08:59 10/29/17 18:08 40 MG Albuterol Sulfate (Ventolin 0.083% 2.5MG/3ML Neb) 2.5 mg Q2H PRN INH 10/22/17 07:45 11/21/17 07:44 Cephalexin Monohydrate (Keflex Cap) 500 mg QID PO 10/23/17 21:00 10/30/17 20:59 10/29/17 20:50 500 MG Amiodarone HCl (Cordarone Tab) 200 mg BID PO 10/25/17 21:00 11/24/17 20:59 10/28/17 22:11 200 MG Digoxin (Lanoxin Tab) 0.125 mg Q48H PO 10/27/17 16:00 11/20/17 15:59 10/27/17 16:58 0.125 MG Nystatin (Mycostatin Susp) 5 ml QID PO 10/26/17 21:00 11/05/17 20:59 10/29/17 20:51 5 ML Pantoprazole Sodium 40 mg/ Syringe 10 ml @ 5 mls/min DAILY@09,21 IV 10/28/17 21:00 11/27/17 20:59 10/29/17 20:50 5 MLS/MIN Sucralfate (Carafate Susp) 1 gm QID PO 10/28/17 13:00 11/27/17 12:59 10/29/17 20:50 1 GM Methylprednisolone Sodium Succinate 40 mg/Syringe 0.64 ml @ 1.5 mls/min Q12H IV 10/29/17 17:15 11/28/17 17:14 10/30/17 05:21 1.5 MLS/MIN Potassium Chloride (Klor-Con Tab) 20 meq TODAY@1400 PO 10/30/17 14:00 11/29/17 13:59 Metoprolol Succinate (Toprol Xl Tab) 100 mg DAILY PO 10/30/17 09:00 11/18/17 11:29 Objective Vital Signs Date Time Temp Pulse Resp B/P (MAP) Pulse Ox O2 Delivery O2 Flow Rate FiO2 10/30/17 08:04 36.6 83 16 138/83 (101) 92 Room Air 10/30/17 03:50 37.1 75 22 125/63 (83) 94 Room Air 10/29/17 23:32 36.8 69 22 124/86 (99) 94 Room Air 10/29/17 20:00 98 Room Air 10/29/17 19:15 37.2 73 18 115/79 (91) 99 Room Air 10/29/17 16:51 36.5 68 17 129/57 (81) 98 Room Air 10/29/17 16:43 70 20 101/64 (76) 99 Room Air 10/29/17 16:28 67 18 125/66 (85) 99 Room Air 10/29/17 16:14 37 80 18 104/46 (65) 98 Room Air 10/29/17 14:54 37 65 18 139/54 (82) 98 Room Air 10/29/17 11:54 36.7 72 95 118/76 (90) 10/29/17 11:00 36.4 70 18 113/50 96 10/29/17 10:00 36.7 65 16 107/53 95 10/29/17 09:45 36.7 65 14 107/51 97 Physical Exam General Appearance: WD/WN, no apparent distress Eyes: normal inspection, PERRL ENT: hearing grossly normal Respiratory/Chest: chest non-tender, lungs clear Cardiovascular: regular rate, rhythm Abdomen: normal bowel sounds, non tender, soft Neurologic/Psych: alert, oriented x 3 Skin: + pertinent finding (bruising, pemphigoid lesions) Laboratory Results Last 24 Hours Test 10/29/17 13:56 10/30/17 05:12 Hemoglobin 9.1 g/dL 9.9 g/dL Hematocrit 27.8 % 30.2 % White Blood Count 10.79 K/uL Red Blood Count 3.13 M/uL Mean Corpuscular Volume 96.5 fL Mean Corpuscular Hemoglobin 31.6 pg Mean Corpuscular Hemoglobin Concent 32.8 g/dl RDW Standard Deviation 66.8 fL RDW Coefficient of Variation 19.8 % Platelet Count 203 K/uL Mean Platelet Volume 9.2 fL Sodium Level 144 mmol/L Potassium Level 3.4 mmol/L Chloride Level 106 mmol/L Carbon Dioxide Level 30 mmol/L Anion Gap 7.0 mmol/L Blood Urea Nitrogen 35 mg/dl Creatinine 0.95 mg/dl Est Creatinine Clear Calc Drug Dose 41.6 ml/min Estimated GFR () 62.0 Estimated GFR (Non- 53.5 BUN/Creatinine Ratio 36.8 Random Glucose 96 mg/dl Calcium Level 8.8 mg/dl Assessment and Plan Patient is an 86 yo female s/p EGD on 10/29 that indicated bullous pemphigoid lesions of the esophagus and esophagitis. Her anemia is improving since receiving a blood transfusion on 10/29. At present it is 9.9/30.2. 1) Continue Protonix 40 mg BID. 2) Carafate 1 gm four times daily before meals and at bedtime x 10 days. 3) Treatment of bullous pemphigoid per primary team. The patient is currently on IV steroids. 4) Continue diet as tolerated. Supportive care per primary team. Thank you for allowing us to participate in the care of this patient. If you should have any further questions or concerns, do not hesitate to contact us. Agree with DAYLIN Jones as above Abd: Soft, NT, ND, +BS No further melena and feeling better today Continue current therapy Continue supportive care
--- NOTE | 2017-10-30 09:39 | Cardiology Follow-Up ---
Subjective Date of Service: Oct 29, 2017. Pt evaluation today including: conversation w/ patient, physical exam, lab review, review of studies, review of inpatient medication list History of Present Illness This is a very pleasant 86-year-old woman who has a history of aortic stenosis and periodic syncope. She was admitted to [facility] with an episode of syncope, on monitoring she was observed to have periods of bradycardia associated with sudden heart rate drop with heart rates in the low 40s and occasionally in the high 30s. 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 She therefore underwent dual-chamber pacemaker implantation on February 01, 2010. That device reached [facility] and was replaced on 08/05/2017 using the chronic leads. She has had cardiac catheterization to look at her coronary anatomy 02/02/2010 and she did not have evident coronary artery disease. She has refused aortic valve replacement although she has had severe aortic stenosis. 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 She was anticoagulated but developed a retroperitoneal bleed and anticoagulation was discontinued, and IVC filter was placed. Historically she has had rare episodes of atrial fibrillation that were brief ( less than 6 hours) therefore she was not initially on an anticoagulant. After her pacemaker replacement however she was seen in the office on September 17, 2017 and although she felt well she had been in atrial fibrillation since the end of August was fully. She was started on Xarelto 15 mg daily. We had planned on reevaluating her in 3 months to see whether she remained in atrial fibrillation. She is now admitted with cellulitis, however she was in atrial fibrillation and at times has rapid heart rates. Symptomatically she is doing well from the cardiovascular standpoint, she was short of breath but was unaware of palpitations and had no lightheadedness or dizziness. She seems unaware of the arrhythmia. I thought it would be reasonable to try to return her to sinus rhythm, however with her severe aortic stenosis anesthesia may be risky. I therefore started her on amiodarone IV, now transitioned to oral. She appears to have developed a GI bleed, her hemoglobin has dropped and she is receiving a blood transfusion. She had EGD performed for evaluation. Her anticoagulation is on hold. Social History Smoking Status: Never Smoker History of Alcohol Use: No Review of Systems Respiratory: No cough, No shortness of breath Cardiac: No chest pain Leg pain Medications Cardiovascular: Item Value Date Time Digoxin 0.125 mg 10/27/17 1600 (Lanoxin Tab) Q48H/PO 10/27/17 1658 Amiodarone HCl 200 mg 10/25/17 2100 (Cordarone Tab) BID/PO 10/28/17 2211 Metoprolol 150 mg 10/23/17 0900 Succinate DAILY/PO (Toprol Xl Tab) Furosemide 40 mg 10/22/17 0900 (Lasix Tab) BID17/PO 10/28/17 1717 Objective Vital Signs Past 12 Hours Date Time Temp Pulse Resp B/P (MAP) Pulse Ox O2 Delivery O2 Flow Rate FiO2 10/29/17 09:10 36.8 73 14 114/58 97 10/29/17 07:55 36.4 67 16 97/49 (65) 97 Room Air 10/29/17 04:00 36.7 70 20 104/53 (70) 95 Room Air 10/28/17 23:59 36.4 63 20 157/73 (101) 100 Room Air Last Recorded Weight-Kilograms: 96.100 Physical Exam Constitutional: General Apperance: overweight Level of Distress: NAD Lungs: Respiratory effort: no dyspnea, good air movement Auscultation: breath sounds normal, no wheezing Cardiovascular: Heart Auscultation: no rubs, no gallops, III/ PALLAVI, irregular rate rhythm Peripheral Pulses: Bruits: none appreciated Extremities: no edema Data Laboratory Results: Last 24 Hours Test 10/28/17 11:55 10/28/17 12:08 10/28/17 17:14 10/28/17 22:52 Stool Occult Blood POSITIVE Hemoglobin 7.9 g/dL 8.9 g/dL 8.7 g/dL Hematocrit 24.2 % 26.8 % Test 10/29/17 05:04 White Blood Count 11.86 K/uL Red Blood Count 2.55 M/uL Hemoglobin 8.3 g/dL Hematocrit 25.0 % Mean Corpuscular Volume 98.0 fL Mean Corpuscular Hemoglobin 32.5 pg Mean Corpuscular Hemoglobin Concent 33.2 g/dl RDW Standard Deviation 64.6 fL RDW Coefficient of Variation 18.8 % Platelet Count 184 K/uL Mean Platelet Volume 9.0 fL Nucleated RBC Absolute Count (auto) 0.03 K/uL Nucleated Red Blood Cells % 0.3 % Sodium Level 141 mmol/L Potassium Level 3.6 mmol/L Chloride Level 106 mmol/L Carbon Dioxide Level 30 mmol/L Anion Gap 5.0 mmol/L Blood Urea Nitrogen 43 mg/dl Creatinine 1.06 mg/dl Est Creatinine Clear Calc Drug Dose 37.7 ml/min Estimated GFR () 54.3 Estimated GFR (Non- 46.8 BUN/Creatinine Ratio 40.5 Random Glucose 77 mg/dl Calcium Level 8.5 mg/dl Telemetry reviewed: Atrial fibrillation with a well-controlled heart rate Assessment and Plan 1. Atrial fibrillation: She has remained in atrial fibrillation since September 03, 2017 (confirmed by pacemaker monitoring), on amiodarone since October 23, 2017, initially IV but now on oral. She remains in atrial fibrillation although the rate is now well controlled. I remain reluctant to consider electrical cardioversion due to her anesthesia risk as well as now lack of anticoagulation , although we could consider it in the future if she remains in atrial fibrillation. Since her heart rate is well controlled and she feels well I probably would not do that. I am concerned that we cannot anticoagulate currently, but agree that we need to hold the anticoagulation for now. As soon as it is felt safe to anticoagulate I would resume anticoagulation. 2. Amiodarone therapy: She is on amiodarone, we were using it both for rate control and with thoughts that it may help convert her to sinus rhythm. Now off of anticoagulation I am concerned about trying to convert her rhythm and think we should discontinue it. It may be helping with rate control, as the amiodarone is metabolized we may have to increase other rate control medications. I am going to discontinue it today. 3. Aortic stenosis: She has severe aortic stenosis but has refused valve replacement in the past. I did not readdress that issue. 4. Dual-chamber pacemaker: Her pacemaker is functioning well, interrogation demonstrated continuous atrial fibrillation since September 03, 2017, overall heart rate is somewhat fast. Battery voltage excellent. Thank you for allowing me to participate in her care.
--- NOTE | 2017-10-30 10:41 | GI REPORT ---
Patient Name: Rhina Brown Procedure Date: 10/29/2017 3:55 PM Date of : 1930 Admit Type: Inpatient Age: 86 Gender: Female Attending MD: Conrado Neri DO Procedure: Upper GI endoscopy Providers: Conrado Neri DO Referring MD: Steve Edgar Indications: Melena Medicines: Monitored Anesthesia Care Complications: No immediate complications. Estimated Blood Loss: Estimated blood loss: none. Procedure: Pre-Anesthesia Assessment: - Prior to the procedure, a History and Physical was performed, and patient medications and allergies were reviewed. The patient's tolerance of previous anesthesia was also reviewed. The risks and benefits of the procedure and the sedation options and risks were discussed with the patient. All questions were answered, and informed consent was obtained. Prior Anticoagulants: The patient has taken Xarelto (rivaroxaban), last dose was 1 day prior to procedure. ASA Grade Assessment: IV - A patient with severe systemic disease that is a constant threat to life. After reviewing the risks and benefits, the patient was deemed in satisfactory condition to undergo the procedure. After obtaining informed consent, the endoscope was passed under direct vision. Throughout the procedure, the patient's blood pressure, pulse, and oxygen saturations were monitored continuously. The scope was introduced through the mouth, and advanced to the second part of duodenum. The upper GI endoscopy was accomplished without difficulty. The patient tolerated the procedure well. Findings: Scattered severe mucosal changes characterized by erythema, inflammation, sloughing and ulceration were found in the entire esophagus. Biopsies were taken with a cold forceps for histology. The stomach was normal. The examined duodenum was normal. Impression: - Erythematous, inflamed, ulcerated mucosa in the esophagus. Biopsied. - Normal stomach. - Normal examined duodenum. Recommendation: - [facility]. - Advance diet as tolerated. - Await pathology results. - Continue present medications. Conrado Neri DO 10/29/2017 4:14:44 PM This report has been signed electronically. Note Initiated On: 10/29/2017 3:55 PM Number of Addenda: 0 I attest to the content of the Intraoperative Record and orders documented therein, exceptions below {[id number]}
[2017-10-30] MEDS: ACETAMINOPHEN 325 MG TAB PO PRN (11:37)
[2017-10-30] MEDS ORDERED: POTASSIUM CHLORIDE 20 MEQ TABCR PO SCH (14:00)
[2017-10-30] MEDS ORDERED: NURSING VERBAL MED ORDER ONE (14:45)
[2017-10-30] MEDS ORDERED: POTASSIUM CHLORIDE PWD 20 MEQ PACK PO ONE (15:00)
[2017-10-30] MEDS: BOOST BREEZE NUTRITION DRINK 1 BOX PO SCH (16:42)
[2017-10-30] MEDS ORDERED: PANTOprazole SOD 40 MG TAB PO SCH (21:00)
[2017-10-30] MEDS: PANTOprazole SOD 40 MG TAB PO SCH (21:10)
[2017-10-31 04:29] VITALS: BP 141/99; PULSE 71; TEMP 36.6; O2SAT 98
[2017-10-31] MEDS ORDERED: METHYLPREDNISOLONE IV 30 MG in SYRINGE 0 ML IV SCH (05:15)
[2017-10-31 07:14] VITALS: BP 141/68; PULSE 71; TEMP 36.6; O2SAT 97
--- NOTE | 2017-10-31 08:00 | Progress Note ---
Subjective Date of Service: Oct 30, 2017. Subjective Pt evaluation today including: conversation w/ patient, conversation w/ family (brother, sister - at bedside), physical exam, chart review, lab review, review of inpatient medication list Pain: RLE - but improved PO Intake: tolerating clears Voiding: no voiding problems tele with rate-controlled a. fib or paced rhythm feels good no dyspnea no GI bleeding no abd pain pain in legs much better Problem List Medical Problems: (1) Anterior epistaxis Status: Acute (2) Fever Status: Acute Review of Systems Constitutional: No fever Respiratory: No cough, No shortness of breath, No dyspnea on exertion Cardiac: + edema, No chest pain, No orthopnea Abdomen: No pain, No nausea, No vomiting Objective Vital Signs Date Time Temp Pulse Resp B/P (MAP) Pulse Ox O2 Delivery O2 Flow Rate FiO2 10/30/17 19:22 36.8 66 18 121/64 (83) 96 Room Air 10/30/17 16:15 Room Air 10/30/17 15:26 36.7 66 18 142/59 (86) 98 Room Air 10/30/17 12:04 36.6 68 16 140/49 (79) 96 Room Air 10/30/17 08:04 36.6 83 16 138/83 (101) 92 Room Air 10/30/17 08:00 Room Air 10/30/17 03:50 37.1 75 22 125/63 (83) 94 Room Air 10/29/17 23:32 36.8 69 22 124/86 (99) 94 Room Air Physical Exam General Appearance: no apparent distress, + obese ENT: pharynx normal Neck: no JVD Respiratory/Chest: lungs clear, no respiratory distress, no accessory muscle use Cardiovascular: no gallop, + systolic murmur (2/6 RUSB), + irregularly irregular Abdomen: normal bowel sounds, non tender, soft, no organomegaly Extremities: + swelling (lymphedema L>R; the edema on right leg is improved due to use of compressive sleeve/NADIRA) Neurologic/Psychiatric: alert, oriented x 3 Skin: + pertinent finding (hyperpigmentation of the entire wright of right leg; no cellulitis seen; there is old, black eschar skin and old small hematoma on the lateral aspect of right wright; this entire area is markedly improved from prior and markedly LESS TENDER than previous ) Laboratory Results Last 24 Hours Test 10/30/17 05:12 White Blood Count 10.79 K/uL Red Blood Count 3.13 M/uL Hemoglobin 9.9 g/dL Hematocrit 30.2 % Mean Corpuscular Volume 96.5 fL Mean Corpuscular Hemoglobin 31.6 pg Mean Corpuscular Hemoglobin Concent 32.8 g/dl RDW Standard Deviation 66.8 fL RDW Coefficient of Variation 19.8 % Platelet Count 203 K/uL Mean Platelet Volume 9.2 fL Sodium Level 144 mmol/L Potassium Level 3.4 mmol/L Chloride Level 106 mmol/L Carbon Dioxide Level 30 mmol/L Anion Gap 7.0 mmol/L Blood Urea Nitrogen 35 mg/dl Creatinine 0.95 mg/dl Est Creatinine Clear Calc Drug Dose 41.6 ml/min Estimated GFR () 62.0 Estimated GFR (Non- 53.5 BUN/Creatinine Ratio 36.8 Random Glucose 96 mg/dl Calcium Level 8.8 mg/dl Assessment and Plan 86yo female - 1. RLE cellulitis - day #12 of abx - resolved. Currently on keflex. Doxy d/c due to severe esophagitis. CT leg without osteomyelitis, nec fasc, abscess, etc. Cont with keflex. 2. RLE blood blister/hematoma - likely traumatic in nature. This spontaneously ruptured last Friday evening and has gotten smaller since then. Wound care nurse evaluated the region & recommended orthopedic consult to ensure no debridement needed. Ortho consult appreciated; no surgical intervention necessary. Cont local wound care. This continues to improve day to day. 3. atrial fibrillation - rates controlled with digoxin and amiodarone 200mg BID. The latter will need to be reduced in the outpatient setting. Holding xarelto due to GI bleeding. 4. avulsed left great toenail - s/p removal of nail by Dr. Adamson. 5. acute kidney injury - resolved. 6. sick sinus syndrome s/p pacemaker placement in the past - good function of pacer per cardiology. 7. acute on chronic diastolic CHF - continues to appear compensated. Remains on lasix 40 BID. 8. Elevated troponin at admission - likely myocardial demand ischemia. 9. acute/chronic anemia - acute component 2nd to acute blood loss anemia from GI bleeding (esophageal) and probably some bleeding from RLE. H/H stable today. 10. severe aortic stenosis - last echocardiogram 2013 showed severe ; has declined intervention in the past. 11. morbid obesity with BMI 41. 12. 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 Also takes niacinamide 500 mg TID. Resume at d/c. Now with esophageal involvement. Literature suggests 0.75mg/kg/day of prednisone for such. Continue solumedrol but lower to 30mg IV q12h. I have placed a call to Dr. Murry - [facility] - awaiting call back. 13. CKD stage 3 - creatinine relatively stable. 14. hypokalemia - replaced. 15. 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 carafate qid. hold asa hold anticoagulation stop doxycycline appreciate GI consult and assistance with EGD 16. FEN - advance diet to full liquids; probably regular diet tomorrow. BMP in am. dispo - [facility] - maybe tomorrow Continued [facility] stay due to: other (IV steroids for bullous disease in esophagus ) Discharge planning: jail facility
[2017-10-31 08:28] LABS: HEMATOCRIT 31.3 % (37-47); HEMOGLOBIN 10.4 g/dL (12.0-16.0); MEAN CELL VOLUME 97.2 fL (80-100); MEAN CORPUSCULAR HEMOGLOBIN 32.3 pg (25-34); MEAN CORPUSCULAR HGB CONC 33.2 g/dl (32-36); MEAN PLATELET VOLUME 9.2 fL (7.4-10.4); PLATELET COUNT 230 K/uL (130-400); RED CELL DISTRIBUTION WIDTH CV 19.9 % (11.5-14.5); RED CELL DISTRIBUTION WIDTH SD 68.9 fL (36.4-46.3); WHITE BLOOD COUNT 12.19 K/uL (4.8-10.8)
[2017-10-31] MEDS: PANTOprazole SOD 40 MG TAB PO SCH (08:34)
[2017-10-31] MEDS: DOCUSATE SODIUM 100 MG CAP PO SCH (08:34)
[2017-10-31] MEDS: NYSTATIN SUSP 500,000 U/5 ML UDC PO SCH ×2 (08:34→15:26)
[2017-10-31] MEDS: PYRIDOXINE HCL 50 MG TAB PO SCH (08:34)
[2017-10-31] MEDS: METOPROLOL SUCC 50MG EXT REL TAB PO SCH (08:34)
[2017-10-31] MEDS: FUROSEMIDE 40 MG TAB PO SCH (08:34)
[2017-10-31] MEDS: BOOST BREEZE NUTRITION DRINK 1 BOX PO SCH ×2 (08:34→15:27)
[2017-10-31 08:52] LABS: CALCIUM 9.2 mg/dl (8.5-10.1); CREATININE 1.07 mg/dl (0.60-1.20); POTASSIUM 3.6 mmol/L (3.5-5.1)
[2017-10-31] MEDS: SUCRALFATE 1 GM/10 ML UDC PO SCH ×2 (10:34→15:26)
[2017-10-31 12:07] VITALS: BP 113/95; PULSE 71; TEMP 36.8; O2SAT 96
[2017-10-31 15:10] VITALS: BP 130/49; PULSE 66; TEMP 36.5; O2SAT 97
[2017-10-31] MEDS: DIGOXIN 0.125 MG TAB PO SCH (15:27)
[2017-10-31] MEDS ORDERED: Boost Nutritional Drink PO (15:33)
[2017-10-31] MEDS ORDERED: PRED10TA PO (15:33)
[2017-10-31] MEDS ORDERED: LNX125 PO (15:33)
[2017-10-31] MEDS ORDERED: NYSS5 PO (15:33)
[2017-10-31] MEDS ORDERED: CRFUDL PO (15:33)
[2017-10-31] MEDS ORDERED: SALI0.6510 (15:33)
[2017-10-31] MEDS ORDERED: PANT1TAB4 PO (15:33)
[2017-10-31] MEDS ORDERED: FURO-85 PO (15:33)
[2017-10-31] MEDS ORDERED: CEPH500C PO (15:34)
--- NOTE | 2017-10-31 15:45 | Discharge Instructions ---
Discharge Instructions Date of Service Oct 31, 2017. Admission Reason for Admission: RLE cellulitis, a. fib Discharge Discharge Diagnosis / Problem: RLE cellulitis, traumatic hematoma of RLE, a. fib, upper GI bleed Discharge Goals Goal(s): Decrease discomfort, Improve disease control, Improve nutritional status, Learn about illness, Diagnostic testing, Therapeutic intervention Activity Recommendations Activity Level: Assistance Required Therapies: Physical Therapy, Occupational Therapy . Additional Information Patient informed of condition: Yes Advance Directives: Yes DNR: Yes Level of Care: Skilled Communicable Disease: No Prognosis: Stable Oxygen at (LPM): none Instructions / Follow-Up Instructions / Follow-Up Follow-up appointments: 1. Dr. Efrain Murry - [facility] D[facility] at the [facility] - November 12 at 1000am 2. See the [facility] within 1 week 3. See the medical staff coordinator of SNF within [address] Conrado Neri or his physician assistants within 2 weeks ([facility] gastroenterology) Current Hospital Diet Patient's current hospital diet: AHA Diet (Heart Healthy) Discharge Diet Recommended Diet: AHA Diet (Heart Healthy) Procedures Procedures Performed: 1. RLE CAT scan with cellulitis but no abscess or other pathology 2. EGD with severe esophagitis and bullous pemphigoid of the esophagus Pending Studies Studies pending at discharge: no Physician Orders On Transfer Dressing Changes: RLE wounds - 1. place adaptic to the wounds (mainly the black appearing skin) 2. cover with "[place]rel" material (encircle the leg with this material) 3. then cover with large NADIRA wrap with gentle/mild compression Left great toe - 1. Cover with Optifoam 2. Change every other day IV Therapy: none Vital Signs: per routine Weigh: every morning on STANDING SCALE, if possible notify MD/medical staff coordinator if any weight gain of more than 2-3 pounds over 1-2 days Additional Orders: 1. CBC and BMP along with magnesium level in 3 days 2. Digoxin level in 3 days 3. May resume Xarelto in 5 days (xarelto 15mg once daily) POLST Discussion: Not Applicable Medical Emergencies . Who to Call and When: Medical Emergencies: If at any time you feel your situation is an emergency, please call 911 immediately. . Non-Emergent Contact Non-Emergency issues call your: Primary Care Provider Call Non-Emergent contact if: temperature is above 100.5, your pain is not controlled, your pain is worsening, your pain is unusual for you, your pain is concerning you, wound has increased drainage, wound has increased redness, wound has increased pain, you have any medication questions . . "Provider Documentation" section prepared by Steve Edgar. . Core Measure Problem Core Measures: None
[2017-10-31 15:48] VITALS: BP 130/49; PULSE 78; TEMP 36.5; O2SAT 97
--- NOTE | 2017-11-01 21:59 | Discharge Summary ---
Discharge Summary Date of Service Oct 31, 2017. Discharge Summary Admission Date: Oct 19, 2017 at 08:57 Discharge Date: Oct 31, 2017 Discharge Disposition: jail facility ([facility] ) Principal Diagnosis: RLE cellulitis Problems/Secondary Diagnoses: 1. acute kidney injury - resolved 2. CKD stage 3 3. morbid obesity with BMI 41.8 4. left great toenail avulsion injury - s/p removal of toenail by podiatry 5. traumatic hematoma of right distal leg 6. acute blood loss anemia 2nd to severe esophagitis and ulcerations 7. bullous pemphigoid with involvement of the esophagus 8. atrial fibrillation 9. sick sinus syndrome s/p pacemaker placement 10. acute on chronic diastolic CHF 11. elevated troponin - likely myocardial demand ischemia 12. severe aortic stenosis 13. hypokalemia 14. upper GI bleeding 2nd to #6 15. thrush Immunizations: Have You Had Influenza Vaccine: No History of Tetanus Vaccine?: Yes History of Pneumococcal: Yes History of Hepatitis B Vaccine: Yes Procedures: 1. RLE CT - IMPRESSION: 1. Extensive subcutaneous edema within the right lower leg and visualized portions of the left lower leg. No definite loculated fluid collections on this noncontrast study to suggest an abscess. No significant deep soft tissue edema. 2. A slightly hyperdense skin blister at the lateral right lower leg. 3. No CT evidence for osteomyelitis. 4. No fracture or dislocation. 2. EGD - Dr. Conrado Neri - Scattered severe mucosal changes characterized by erythema, inflammation, sloughing and ulceration were found in the entire esophagus. Biopsies were taken with a cold forceps for histology. The stomach was normal. The examined duodenum was normal. 3. removal of left great toe toenail - Dr. Ciarra Simon 4. PRBCs x 2 units Consultations: cardiology - Román Zendejas MD orthopedics podiatry - Ciarra Simon DPM gastroenterology - Conrado Neri, DO PT, OT wound care team Medication Reconciliation New Medications: Cephalexin Monohydrate (Keflex) 500 Mg Cap 500 MG PO DAILY for 30 Days, #30 CAP 0 Refills Digoxin (Digoxin) 0.125 Mg Tab 0.125 MG PO Q48H, #15 TAB 5 Refills first dose 11/02/2017 Nystatin (Nystatin) 5 Ml Susp 5 ML PO QID for 7 Days, #140 ML 0 Refills Pantoprazole (Pantoprazole Sodium) 40 Mg Tab 40 MG PO BID, #60 TAB 5 Refills Saline ([place] Nasal [place]) 0.65 % Spr 1 SPRAYS NA PRN PRN for DRYNESS, #1 BTL 0 Refills Sucralfate (Sucralfate) 1 Gm/10 Ml Susp 1 GM PO QID for 7 Days, #280 ML 0 Refills [Boost Nutritional Drink] () 1 BOX LIQD 1 BOX PO TIDM, #90 BOX 2 Refills Changed Medications: Furosemide (Lasix) 20 Mg Tab 40 MG PO BID, #60 TABS 2 Refills (Changed from: 60 MG; Refills: ) Prednisone Tab (Prednisone) 10 Mg Tab 40 MG PO DAILY for 30 Days, #120 TAB 0 Refills (Changed from: Prednisone 5 Mg Tab 5 Mg PO QAM) first dose 11/01/17 Continued Medications: Acetaminophen (Tylenol) 325 Mg Tab 650 MG PO Q4H PRN for PRN, TAB NOT TO EXCEED 3000 MG APAP IN 24 HOURS. Albuterol Sulf (Proventil 0.083% 2.5MG/3ML) 2.5 Mg/3 Ml Nebu 2.5 MG INH QID Bisacodyl (Dulcolax) 10 Mg Sup 1 SUPP MO Q3D PRN for Constipation, SUP Cholecalciferol (Vitamin D) 2,000 Unit Tab 1.5 TAB PO DAILY Cyclosporine (Ophth) (Restasis) 0.05 % Emu 1 DROP OPB BID Docusate Sodium (Colace) 100 Mg Cap 100 MG PO BID Ferrous Sulfate (Ferrous Sulfate) 325 Mg Tab 325 MG PO BID TAKE ONE TABLET WITH BREAKFAST AND ONE TABLET WITH EVENING MEAL EVERY DAY. Guaifenesin (Ra Tussin) 100 Mg/5 Ml Syp 10 ML PO Q6 PRN for Cough Lactobacillus (Probiotic) 1 Cap Cap 1 CAP PO BID Magnesium Hydroxide (Milk Of Magnesia) 30 Ml Susp 30 ML PO DAILY PRN for Constipation, ML Metoprolol Succinate (Toprol Xl) 100 Mg Tab 100 MG PO DAILY IN THE AFTERNOON Multiple Vitamins W/ Minerals (Prosight) 1 Tab Tab 1 TAB PO BID Niacinamide (Niacinamide) 100 Mg Tab 500 MG PO TID Potassium Chloride (K-Tabs) 10 Meq Tab 20 MEQ PO QAM TWO 10 MEQ TABLETS EVERY DAY SHIFT Pyridoxine (Vitamin B6) 100 Mg Tab 100 MG PO QAM, TAB Sodium Phosphate/Biphosphate (Fleet Enema) Marybeth 1 EA MO Q4DAYS PRN for Constipation, BTL Triamcinolone Acet (Aristocort 0.1%) 90 Appln/30 Gm Cr 1 APPLN TOP Q12 PRN for BULLOUS PEMPHLAGOID LESIONS Discontinued Medications: Aspirin (Aspirin Chewable) 81 Mg Chew 81 MG PO QAM Doxycycline Hyclate (Doxycycline Hyclate) 50 Mg Tab 50 MG PO BID HOLD FROM 10/11/17-10/20/17. START DATE 10/21/17 Omeprazole (Prilosec) 20 Mg Capcr 20 MG PO QAM, CAP Rivaroxaban (Xarelto) 15 Mg Tab 15 MG PO QAM Discharge Exam Physical Exam: General Appearance: no apparent distress, + obese ENT: pharynx normal Neck: no JVD Respiratory/Chest: lungs clear, no respiratory distress, no accessory muscle use Cardiovascular: no gallop, normal peripheral pulses, + systolic murmur (2/6 RUSB), + irregularly irregular Abdomen / GI: normal bowel sounds, non tender, soft, no organomegaly, + hernia (midline, above umbilicus ) Extremities: + pedal edema, + swelling (lymphedema, left leg worse than right leg ) Neurologic/Psychiatric: alert, oriented x 3 Skin: + pertinent finding (RLE - resolved cellulitis; hyperpigmentation of the calf and wright region; there is a 1-2cm resolved hematoma on the lateral aspect of the distal leg; there are several other smaller areas of black/ necrotic type skin on the wright; left great toe - toenail absent, nailbed clean) Hospital Course HISTORY OF PRESENT ILLNESS: 86 yo female who presents to the ED from [facility] due to right leg pain, swelling, redness. She has also been experiencing fever/chills, sweats, lethargy, poor appetite and weakness. Poor intake of fluids past two days. She has been compliant with her medications. She has some chronic lower extremity swelling, edema and has had cellulitis before but she does not believe this bad. The pain is rated 7 out of 10 at its worst. She describes an area of skin that has opened and is draining clear fluid. Changes in the skin started a few days ago and then systemic symptoms occurred yesterday. No injury or break in skin over right leg that she can recall. She denies chest pain, pressure, dyspnea. No nausea/vomiting, she had a BM this morning. No issues urinating. In the ED she was found to have WBC of 15k with 86% neutrophils, Hb 10.0, K low at 3.4 and Cr up from baseline at 1.47. Troponin was minimally elevated. CXR negative. EKG showed atrial fibrillation. She received Rocephin, Vancomycin and Levaquin. HOSPITAL COURSE: 1. RLE cellulitis - the patient took an extended course of IV/PO antibiotics while hospitalized. Blood cultures were negative. Her RLE cellulitis improved with the antibiotics and supportive care. She was ultimately transitioned to oral keflex and doxycycline. CT leg failed to demonstrate osteomyelitis, nec fasc, abscess, etc. She was seen in consult by the wound care team and orthopedics. The wound care team provided recommendations for her hematoma (see below). Due to the severe esophagitis seen on EGD the doxycycline was discontinued. She will remain on keflex - perhaps indefinitely - for prevention of skin infection in the setting of her bullous pemphigoid. 2. RLE blood blister/hematoma - about jail through her stay the patient developed this on the lateral aspect of her distal right leg. Fortunately the hematoma spontaneously ruptured and gradually improved over time and with supportive care. Orthopedics was consulted and felt it did NOT require debridement. At time of discharge Adaptic was being placed directly to the skin in this region, covered with sterile dressings, and then an NADIRA wrap for light compression. We recommend she see the [facility] clinic shortly after discharge. 3. atrial fibrillation - the patient had poor rate control necessitating cardiology consultation. She was placed on digoxin as well as amiodarone in the form of an infusion. She was transitioned to amiodarone 200mg BID prior to discharge and this dose will need adjustment in the outpatient setting. Of note - due to her upper GI bleeding & severe esophagitis - we advise that her xarelto be held for an additional 5-7 days after discharge. If CBC is found to be stable then the xarelto can be resumed at that time. 4. acute blood loss anemia 2nd to upper GI bleeding - the patient required 2 units of PRBCs for this. Discharge hemoglobin was 10.4. EGD was performed by Dr. Conrado Neri which demonstrated severe esophagitis as well as ulcers and sloughing of mucosa. The findings were felt to be due to her bullous pemphigoid. She was treated with bowel rest, IV PPI, and increased doses of steroids. At discharge the following were recommended - * discontinuation of doxycycline * discontinuation of aspirin therapy * HOLD xarelto for 5-7 days * PPI twice daily indefinitely * carafate x 7 days 5. bullous pemphigoid with involvement of the esophagus - we spoke with her primary accounting professional, Dr. Efrain Murry, who advised discharging her on prednisone 40mg daily. She has a follow-up appointment with him in early November and he will manage her prednisone dosing. She should remain on the prednisone 40mg daily until he sees her. 6. avulsed left great toenail - s/p removal of nail by Dr. Simon. We suspected that the toenail became loose due to minor trauma. An optifoam can be placed to the left great nailbed to promote wound healing. Other issues addressed while here included acute kidney injury, acute/chronic anemia, hypokalemia, acute/chronic diastolic CHF, and a positive troponin felt due to myocardial demand ischemia. Total Time Spent: Greater than 30 minutes This includes examination of the patient, discharge planning, medication reconciliation, and communication with other providers. Discharge Instructions Please refer to the electronic Patient Visit Report (Discharge Instructions) for additional information. Follow-Up 1. Dr. Efrain Murry - [facility] Dermatology - November 12 at 1000am 2. [facility] within 1 week 3. student support services director of [facility] within [address] Conrado Neri - [facility] gastroenterology - within 2 weeks Additional Copies To [place], [place]; Efrain Murry M.D.; Marcos Patterson M.D.; Babar Guillermo M.D.; Ciarra Muniz D.O.
== END 2017-10-31 15:55 | DRG 602 ==
LOC: EDBD 07:20 → C.EDA 07:21 → C.2E 08:57 → ENRESERV 09:28
PROVIDERS: ADMIT Internal Medicine; ATTEND Internal Medicine
PROC: 0HTRXZZ Resection of Toe Nail, External Approach (ICD-10-PCS; 2017-10-27)
PROC: 0DB58ZX Excision of Esophagus, Via Natural or Artificial Opening Endoscopic, Diagnostic (ICD-10-PCS; principal; 2017-10-29 14:50)
DX: L03.115 Cellulitis of right lower limb (principal); I35.0 Nonrheumatic aortic (valve) stenosis; K22.11 Ulcer of esophagus with bleeding; I48.91 Unspecified atrial fibrillation; B37.0 Candidal stomatitis; I24.8 Other forms of acute ischemic heart disease; I11.0 Hypertensive heart disease with heart failure; M81.0 Age-related osteoporosis without current pathological fracture; Z96.653 Presence of artificial knee joint, bilateral; Z88.0 Allergy status to penicillin; M79.81 Nontraumatic hematoma of soft tissue; Z88.8 Allergy status to other drugs, medicaments and biological substances; Z86.73 Personal history of transient ischemic attack (TIA), and cerebral infarction without residual deficits; Z95.828 Presence of other vascular implants and grafts; Z68.41 Body mass index [BMI] 40.0-44.9, adult; Z83.3 Family history of diabetes mellitus; I50.33 Acute on chronic diastolic (congestive) heart failure; N17.9 Acute kidney failure, unspecified; L12.0 Bullous pemphigoid; E86.0 Dehydration; E87.6 Hypokalemia; D62 Acute posthemorrhagic anemia; E66.01 Morbid (severe) obesity due to excess calories; Z79.01 Long term (current) use of anticoagulants; I48.2 Chronic atrial fibrillation; S99.821A Other specified injuries of right foot, initial encounter; X58.XXXA Exposure to other specified factors, initial encounter; Y92.019 Unspecified place in single-family (private) house as the place of occurrence of the external cause; Z95.0 Presence of cardiac pacemaker; Z86.718 Personal history of other venous thrombosis and embolism; I89.0 Lymphedema, not elsewhere classified